=== PATIENT | female | born 1965 | race Caucasian/White ===

== ENCOUNTER 2017-04-03 13:00 | Outpatient (RCR) | payer MEDICAID, SELFPAY ==
--- NOTE | 2017-04-03 09:16 | HP.PTEVAL_ITS ---
Patient's Visit Information MAGALY AVILA is a 51 year old F referred to Physical Therapy by Fran Ding MD with a diagnosis of LBP. Date of Evaluation: 04/03/17 Physical Therapist: Maxime Scanlon PT, - Visit Plan Frequency: 2-3x /Week Duration: 4 Weeks Plan: Postural edu, SKTC/DKTC, core stab ex's, nustep, and HEP - Subjective Subjective: Pt reports she has had LBP since 2008. Pt reports her pain is constant in nature. Pt reports she had been on medication when she lived in [place], but since she moved up here, she is not allowed to have any pain meds until she follows through with other options first, such as PT. Pt reports sitting, standing, bending over to pick things up, and walking all increase her pain. Pt reports only lying down on her L side helps to alleviate the pain. Pt reports no sleep diff secondary to pain unless she lyes on her back and it locks up on her. Pt reports intermittent R LE radiculopathy that extends all the way down to her toes. 8/10 apin at rest, 9/10 at worst (walking) - Pain LBP Pain Intensity (Out of 10): 8 Pain Intensity Range: 9 - Objective Neuro: B LE sensation is WNL to light touch. B patellar reflex= 1/3. MMT: B hips are grossly 4/5 with flex, abd, and add. All other mmt= 5/5 throughout. L/ S ROM: Pt is moderately limited in all planes. repeated movements: both APTRICK and RFIS increase LBP after 5 reps. RFIL - Goals Goal 1:: Decrease LBP x 50% to aid with IADL's Goal Time Frame: 4-6 Weeks Goal 2:: Increase L/S ROM x 1 grade to aid with ADL's Goal Time Frame: 4-6 Weeks Goal 3:: Increase B LE strength x 1 grade to aid with increasing jocelyn for ambulation Goal Time Frame: 4-6 Weeks Goal 4:: I with HEP Goal Time Frame: 4-6 Weeks - Rehabilitation Potential Physical Therapy Diagnosis: Pt has LBP, limited L/S ROM, and diff with ambulation secondary to deg changes to the L/S Rehabilitation Potential: Good - Anticipated Interventions Patient/Client Instruction: Educate patient on: Condition, Plan of Care For the Purpose of:: To improve self management Therapeutic Exercise to Include: Strength training, Endurance training, Body mechanics, Postural training, Flexibilty training, Dynamic Lumbar Stabilization For the Purpose of:: To decrease pain, To increase ROM, To improve muscle performance and motor function Cryotherapy (ice pack, ice massage): Yes Thermo therapy (hot pack): Yes Ultrasound (thermal/non thermal): Yes For the Purpose of:: To decrease pain Thank you for the opportunity to evaluate your patient. For Medicare and Medicare HMO plans, please review the plan of care and approve it. It will need to be FAXED BACK to us at [phone] for Medicare purposes. Please let me know if there are questions or concerns regarding this plan of care. Physician Signature: Date:
--- NOTE | 2017-07-30 13:28 | HP.PT.NRP ---
HP - Discharge Summary (1) - Patient Information MAGALY AVILA was seen in my office for initial evaluation on 04/03/17. The following Plan of Care was established for this patient: Initial Frequency: 2-3x /Week Initial Duration: 4 Weeks - Anticipated Interventions Patient/Client Instruction: Educate patient on: Condition, Plan of Care For the Purpose of:: To improve self management Therapeutic Exercise to Include: Strength training, Endurance training, Body mechanics, Postural training, Flexibilty training, Dynamic Lumbar Stabilization For the Purpose of:: To decrease pain, To increase ROM, To improve muscle performance and motor function Cryotherapy (ice pack, ice massage): Yes Thermo therapy (hot pack): Yes Ultrasound (thermal/non thermal): Yes For the Purpose of:: To decrease pain This patient was last seen in our office . Pertinent comments regarding their Physical therapy will appear below: Pt was last scheduled for PT on the date of 05/06/17, but did not attend that visit and has not returned through todays date. Pt is discontinued at this time At this point I will be discontinuing this patient from physical therapy. I would be happy to see this patient again in the future if found appropriate by the physician. Thank you! Maxime Scanlon, PT,
== END 2017-04-30 19:00 | disposition home or self-care (01) ==
LOC: PT 04-15 13:30
PROVIDERS: Family Provider Internal Medicine; PCP Internal Medicine; Visit Provider Anesthesiology
DX: M54.40 Lumbago with sciatica, unspecified side (principal); M54.16 Radiculopathy, lumbar region
CPT/HCPCS: 97110; 97113; 97161

== ENCOUNTER → 2017-12-09 10:35 | Outpatient (CLI) | payer MEDICAID, SELFPAY ==
--- NOTE | 2017-12-09 10:35 | DT_ITS ---
This patient was seen during an EMR downtime December 07, 2017 - December 14, 2017. This patient may have a combination of paper and electronic documentation or all paper documentation. All documentation is viewable within the e-chart portion of [facility] [employer] for each patient visit.
[2017-12-12 11:01] LABS: Mucous, Urine 0 SEEN /hpf (<or=2+); Red Blood Cells-Urine 0 SEEN /hpf (0-5); White Blood Cells 0 SEEN /hpf (0-5)
[2017-12-12 11:08] LABS: Bacteria RARE /hpf (None Seen); Color, Urine Yellow (Yellow); Glucose, Dipstick NEGATIVE (Normal); Ketone-Dipstick Negative (Negative); Leukocyte Esterase-Dipstick Negative /ul (Negative); Nitrite-Dipstick Negative (Negative); Occult Blood-Urine Negative /ul (Negative); Protein-Dipstick Negative (Negative); Specific Gravity, Urine 1.005 (1.002-1.030); Squamous Epithelial Cells - UA 0-5 SEEN /hpf (5-10); Urine Bilirubin Dipstick Negative (Negative); Urine Clarity Clear (Clear); Urine Urobilinogen Normal (Normal); Urine pH 6.5 (5.0 - 8.0)
== END ==
PROVIDERS: Family Provider Internal Medicine; PCP Internal Medicine; Visit Provider Internal Medicine
DX: R35.0 Frequency of micturition (principal)
CPT/HCPCS: 81001; 87086; 87088

== ENCOUNTER 2017-12-28 18:35 | Emergency (ER) | payer MEDICAID, SELFPAY ==
[2017-12-28 18:35] VITALS: BP 134/109; PULSE 94; RESP 16; O2SAT 96
[2017-12-28 18:36] VITALS: PULSE 103; RESP 19; TEMP 36.6; O2SAT 97; BMI 47.7
--- NOTE | 2017-12-28 19:14 | CT_ITS ---
STUDY: CT BRAIN WITHOUT CONTRAST REASON FOR EXAM: Female, 52 years old. Near syncope. RADIATION DOSAGE (If Supplied By Facility): CTDIvol = ( 44.99 ) mGy, DLP = ( 812.98 ) mGycm TECHNIQUE: Transaxial CT imaging of the brain was performed without administration of intravenous contrast material. Individualized dose optimization techniques were used for this CT. COMPARISON: None. FINDINGS: Normal soft tissue structures. Normal calvarium. Normal size ventricles and extra-axial spaces for the patient's age. Normal white matter tracts of the cerebral hemispheres. Normal basal ganglia and thalami. Normal brainstem. Normal cerebellum. There is no intracranial hemorrhage. There are no findings of an acute ischemic infarction. Normal visualized paranasal sinuses. CT/Brain/Head without Contrast IMPRESSION: Normal unenhanced CT scan of the brain. Electronically Signed: Dawson Mendoza DO at 20:35 EDT Tel , Service support ,
[2017-12-28 19:28] LABS: Absolute Lymphocyte Count 2.25 X10^3/ul (0.83-4.51); Absolute Neutrophil Count 7.7 X10^3/uL (2.0-7.7); Basophil# 0.02 X10^3/uL; Basophil% 0.2 % (0-1); Eosinophil# 0.06 X10^3/uL; Eosinophils% 0.6 % (0-5); Hematocrit 43.4 % (37-47); Hemoglobin 14.3 g/dl (12.0-15.0); Lymphocyte # 2.25 X10^3/ul (4.0); Lymphocyte % 21.3 % (19-41); Mean Corp Hgb Conc 32.9 g/gl (32-36); Mean Corpuscular Hgb 28.1 pg (27.0-32.0); Mean Corpuscular Volume 85.4 fL (81-99); Mean Platelet Vol. 9.5 fl (6.2-12.0); Monocyte# 0.51 X10^3/uL; Monocyte% 4.8 % (0-10); Platelet Count 364 K/mm3 (150-450); RBC Distribution Width CV 13.6 % (11.6-14.6); RBC Distribution Width SD 42.2 fl (35.1-43.9); Red Blood Count 5.08 M/mm3 (4.2-5.4); White Blood Count 10.6 K/mm3 (4.4-11.0)
[2017-12-28 19:30] LABS: POSITIVE COUNT NO; POSITIVE DIFFERENTIAL NO; POSITIVE MORPHOLOGY NO
[2017-12-28 19:39] LABS: ALB/GLOB Ratio 0.6 RATIO (0.9-2.4); AST(SGOT) 21 U/L (15-37); Alanine Aminotransfer ALT/SGPT 26 U/L (13-56); Albumin, Serum 3.3 g/dL (3.2-5.0); Alkaline Phosphatase 113 U/L (45-117); Anion Gap 7 (5-15); BUN 13 mg/dL (7-18); Calcium,Total 9.2 mg/dL (8.5-10.1); Chloride 101 mmol/L (98-107); Creatinine, Serum 0.81 mg/dL (0.55-1.02); EST Glomerular Filtration Rate 79 mL/min (>60); Est Glom Filt Rate - Afr Amer 96 mL/min (>60); Estimated Creatinine Clearance 71.75 ml/min; Globulin 5.1 g/dL (2.2-4.2); Glucose 107 mg/dL (74-106); Potassium 3.6 mmol/L (3.5-5.1); Protein, Total 8.4 g/dL (6.4-8.2); Sodium Level 136 mmol/L (136-145)
[2017-12-28] MEDS: 0.9% Normal Saline 1,000 ML 1000 ML IV (20:13)
[2017-12-28] MEDS: diazePAM 10 MG/2 ML Syringe 5 MG IV (20:25)
[2017-12-28 20:40] VITALS: BP 113/93; PULSE 97; RESP 19; O2SAT 97
--- NOTE | 2017-12-28 22:53 | ED.DCSUM_ITS ---
- ER Visit Summary Date of Service: 12/28/17 Chief Complaint: Vertigo History of Present Illness: The patient is a 52 F with vertigo that started suddenly a few hours ago. No headache. No vision changes. She has some nausea with this. No history of this in the past. She has no weakness or any other neurological symptoms. Physical Examination: She does appear in some distress Moist mucous membranes, no obvious facial deformity No C-spine tenderness supple neck. Regular rate and rhythm without any obvious murmurs Clear lungs bilaterally speaking in full sentences without any obvious respiratory distress Abdomen soft and nontender no guarding or rebound Moves all extremities without any difficulty or pain. Skin does not show any obvious rashes or lesions, no trauma. Alert oriented ?3 with no gross focal deficit. She does lose sacadian traction of the eye especially on the right with traction. Emergency Department Course and Treatment: Patient has an unremarkable workup. Normal CT and blood work. She improved significantly. I will discharge with ENT follow-up Disposition: Discharged stable condition Impression: Vertigo This note was generated with [employer] dictation software. It may contain incorrect words, spelling, and punctuation that were not noted in review of the chart prior to signing ED Disposition - Plan for ED Patient: Disposition: Home or Assisted Living Chief Complaint: Syncope Instructions: ED Vertigo Unspecified Prescriptions: Meclizine HCl 25 mg PO Q12H PRN PRN 10 Days #20 tab PRN Reason: Vertigo Referrals: Sarah Cleaning MD [Primary Care Provider] - 3-5 Days
[2017-12-28 23:43] VITALS: BP 134/78; PULSE 100; RESP 17; O2SAT 98
== END 2017-12-28 23:44 | disposition home or self-care (01) ==
PROVIDERS: Emergency Provider Emergency Medicine; Family Provider Internal Medicine; PCP Internal Medicine
DX: R42 Dizziness and giddiness (principal); I10 Essential (primary) hypertension; J44.9 Chronic obstructive pulmonary disease, unspecified; Z72.0 Tobacco use; Z79.899 Other long term (current) drug therapy
CPT/HCPCS: 70450; 80053; 85025; 96374; 99284; J7030; A4216

== ENCOUNTER → 2018-03-04 14:22 | Outpatient (CLI) | payer MEDICAID, SELFPAY ==
[2018-03-04 17:29] LABS: Absolute Lymphocyte Count 3.04 X10^3/ul (0.83-4.51); Basophil# 0.04 X10^3/uL; Basophil% 0.5 % (0-1); Eosinophil# 0.26 X10^3/uL; Eosinophils% 3.3 % (0-5); Hemoglobin 14.1 g/dl (12.0-15.0); Lymphocyte # 3.04 X10^3/ul (4.0); Lymphocyte % 38.5 % (19-41); Mean Corp Hgb Conc 31.3 g/gl (32-36); Mean Corpuscular Hgb 27.8 pg (27.0-32.0); Mean Corpuscular Volume 88.8 fL (81-99); Mean Platelet Vol. 9.6 fl (6.2-12.0); Monocyte# 0.54 X10^3/uL; Monocyte% 6.8 % (0-10); Neutrophil % 50.6 % (47-70); Platelet Count 369 K/mm3 (150-450); RBC Distribution Width CV 14.8 % (11.6-14.6); RBC Distribution Width SD 47.6 fl (35.1-43.9); Red Blood Count 5.07 M/mm3 (4.2-5.4); White Blood Count 7.9 K/mm3 (4.4-11.0)
[2018-03-04 17:30] LABS: POSITIVE COUNT NO; POSITIVE DIFFERENTIAL NO; POSITIVE MORPHOLOGY NO
[2018-03-04 18:09] LABS: ALB/GLOB Ratio 0.7 RATIO (0.9-2.4); AST(SGOT) 22 U/L (15-37); Alanine Aminotransfer ALT/SGPT 25 U/L (13-56); Albumin, Serum 3.3 g/dL (3.2-5.0); Alkaline Phosphatase 101 U/L (45-117); Anion Gap 9 (5-15); BUN 9 mg/dL (7-18); BUN/Creat Ratio 11.8 RATIO (10-20); Calcium,Total 8.9 mg/dL (8.5-10.1); Chloride 103 mmol/L (98-107); Creatinine, Serum 0.76 mg/dL (0.55-1.02); EST Glomerular Filtration Rate 85 mL/min (>60); Est Glom Filt Rate - Afr Amer 103 mL/min (>60); Glucose 92 mg/dL (74-106); Potassium 4.4 mmol/L (3.5-5.1); Protein, Total 8.3 g/dL (6.4-8.2); Sodium Level 140 mmol/L (136-145); Thyroid Stim Hormone (TSH) 1.46 uIU/mL (0.358-3.74)
[2018-03-08 12:44] LABS: Hep C Antibodies <0.1 s/co ratio (0.0-0.9)
== END ==
LOC: POLAB3 14:23 → RAD 14:28
PROVIDERS: Family Provider Family Medicine Geriatric Medicine; PCP Family Medicine Geriatric Medicine; Visit Provider Family Medicine Geriatric Medicine
DX: M51.86 Other intervertebral disc disorders, lumbar region (principal); M16.0 Bilateral primary osteoarthritis of hip; E03.9 Hypothyroidism, unspecified; Z13.89 Encounter for screening for other disorder
CPT/HCPCS: 36415; 72100; 73521; 80053; 84443; 85025; 86803

== ENCOUNTER → 2018-04-05 14:11 | Outpatient (CLI) | payer MEDICAID, SELFPAY ==
--- NOTE | 2018-04-05 14:14 | US_ITS ---
STUDY: ULTRASOUND OF THE FEMALE PELVIS - COMPLETE REASON FOR EXAM: Female, 52 years old. Postmenopausal bleeding. TECHNIQUE: Transabdominal and Transvaginal TECHNICAL QUALITY: Adequate. COMPARISON: None. FINDINGS: The uterus is anteverted and is in a midline position. The uterus measures 6.4 x 3.5 x 4.5 cm. There is a Nabothian cyst of the cervix. The endometrium measures 7.3 mm in thickness, and is hyperechoic. There is no demonstrated endometrial mass. There is no demonstrated myometrial mass. I.U.D. - The patient does not have an I.U.D. The right ovary is visualized. The right ovary measures 1.6 x 1.3 x 2.1 cm. There is no right ovarian cyst or ovarian mass. There is no visualized right adnexal mass or complex lesion. There is normal arterial and normal venous vascularity. The left ovary is visualized. The left ovary measures 2.2 x 1.7 x 2.3 cm. There is no left ovarian cyst or ovarian mass. There is no visualized left adnexal mass or complex lesion. There is normal arterial and normal venous vascularity. There is no fluid in the cul-de-sac. The pre void volume of the bladder was 460.4 ml. Polycystic ovary disease: No. US/Pelvic (Non ) IMPRESSION: Thickened endometrial stripe. Electronically Signed: Jyoti Milian MD at 16:47 EDT Tel , Service support ,
--- NOTE | 2018-04-05 14:37 | US_ITS ---
STUDY: ULTRASOUND OF THE FEMALE PELVIS - COMPLETE REASON FOR EXAM: Female, 52 years old. Postmenopausal bleeding. TECHNIQUE: Transabdominal and Transvaginal TECHNICAL QUALITY: Adequate. COMPARISON: None. FINDINGS: The uterus is anteverted and is in a midline position. The uterus measures 6.4 x 3.5 x 4.5 cm. There is a Nabothian cyst of the cervix. The endometrium measures 7.3 mm in thickness, and is hyperechoic. There is no demonstrated endometrial mass. There is no demonstrated myometrial mass. I.U.D. - The patient does not have an I.U.D. The right ovary is visualized. The right ovary measures 1.6 x 1.3 x 2.1 cm. There is no right ovarian cyst or ovarian mass. There is no visualized right adnexal mass or complex lesion. There is normal arterial and normal venous vascularity. The left ovary is visualized. The left ovary measures 2.2 x 1.7 x 2.3 cm. There is no left ovarian cyst or ovarian mass. There is no visualized left adnexal mass or complex lesion. There is normal arterial and normal venous vascularity. There is no fluid in the cul-de-sac. The pre void volume of the bladder was 460.4 ml. Polycystic ovary disease: No. US/Transvaginal Non- IMPRESSION: Thickened endometrial stripe. Electronically Signed: Jyoti Milian MD at 16:47 EDT Tel , Service support ,
== END ==
PROVIDERS: Family Provider Family Medicine Geriatric Medicine; PCP Family Medicine Geriatric Medicine; Referring Provider Family Medicine Geriatric Medicine; Visit Provider Family Medicine Geriatric Medicine
DX: N95.0 Postmenopausal bleeding (principal)
CPT/HCPCS: 76830; 76856

== ENCOUNTER → 2018-04-14 14:55 | Outpatient (CLI) | payer MEDICAID, SELFPAY ==
--- NOTE | 2018-04-14 | EMB_PTH ---
PATIENT: MARY AVILA LOC: [facility] U#:[id number] AGE/SX: 59/F ROOM: RE04/14/[address]: SULY Huston : 1965 BED: DIS: SPEC #: [id number] RECD: 04/14/18 15:06 STATUS: [facility] MICHELLE #: [id number] LIZ: 04/14/18 00:[address]: Gloria Mo NP DEPT: SURGICAL PATHOLOGY RECD BY: Brooks Gill ENTERED: 04/14/18 15:11 SP TYPE: ENDOM BX/C DARLIN DR: Dr. Michael Galvan MD Tissues: Endometrium, NOS Procedures: Surgery Specimen Level IV HEADER OPERATION: Endometrial biopsy PRE-OP DIAGNOSIS: Postmenopausal bleeding TISSUE SUBMITTED: Endometrium MICROSCOPIC DIAGNOSIS Endometrium, biopsy: Polypoid fragments of lower uterine/endocervical tissue with simple cystic hyperplasia without atypia. Proliferative endometrium. Mild chronic endometritis. AM:[place] 04/15/18 COMMENT Case has been reviewed in consultation with Dr. Liu who concurs with the above diagnosis. IDC:RUBIN MICROSCOPIC DESCRIPTION Slides are reviewed. GROSS DESCRIPTION Received is one container labeled with the patient's name and not further designated. The specimen consists of multiple fragments of hemorrhagic mucoid tissue that in aggregate measure 2 x 0.5 x 0.1 cm. The specimen is totally submitted in one cassette. / RUBIN:[place] 04/14/18 TC:5 CPT: 92976
[2018-04-14 17:25] LABS: Chlamydia Trachomatis by PCR Negative (Negative); Neisserai gonorrhoeae by PCR Negative (Negative); Probe Check PASS; Sample Adequacy Control PASS; Specimen Processing Control PASS
[2018-04-22 15:13] LABS: HPV APTIMA, High Risk Negative (Negative)
== END ==
PROVIDERS: Family Provider Family Medicine Geriatric Medicine; PCP Family Medicine Geriatric Medicine; Referring Provider Nurse Practitioner Women's Health; Visit Provider Nurse Practitioner Women's Health
DX: Z12.4 Encounter for screening for malignant neoplasm of cervix (principal); N89.8 Other specified noninflammatory disorders of vagina; N95.0 Postmenopausal bleeding
CPT/HCPCS: 87491; 87591; 88175; 88305; G0145

== ENCOUNTER → 2018-06-10 10:51 | Outpatient (CLI) | payer MEDICAID, SELFPAY ==
[2018-04-14 10:14] VITALS: BMI 48.0
[2018-06-10 12:36] LABS: Absolute Lymphocyte Count 3.11 X10^3/ul (0.83-4.51); Absolute Neutrophil Count 4.3 X10^3/uL (2.0-7.7); Basophil# 0.06 X10^3/uL; Basophil% 0.7 % (0-1); Eosinophils% 2.4 % (0-5); Hematocrit 44.2 % (37-47); Lymphocyte # 3.11 X10^3/ul (4.0); Lymphocyte % 37.6 % (19-41); Mean Corp Hgb Conc 31.7 g/gl (32-36); Mean Corpuscular Hgb 27.7 pg (27.0-32.0); Mean Corpuscular Volume 87.4 fL (81-99); Mean Platelet Vol. 9.9 fl (6.2-12.0); Monocyte% 7.3 % (0-10); Neutrophil # 4.29 X10^3/uL (2.7-7.7); Neutrophil % 51.9 % (47-70); Platelet Count 346 K/mm3 (150-450); RBC Distribution Width CV 14.3 % (11.6-14.6); RBC Distribution Width SD 45.3 fl (35.1-43.9); Red Blood Count 5.06 M/mm3 (4.2-5.4); White Blood Count 8.3 K/mm3 (4.4-11.0)
[2018-06-10 12:38] LABS: POSITIVE DIFFERENTIAL NO
[2018-06-10 12:39] LABS: POSITIVE COUNT NO; POSITIVE MORPHOLOGY NO
--- NOTE | 2018-06-10 12:54 | RAD_ITS ---
STUDY: X-RAY - LEFT KNEE REASON FOR EXAM: Female, 52 years old. Pain. TECHNIQUE: 4 view(s) of the knee. COMPARISON: None. FINDINGS: Normal visualized distal femur. Normal visualized proximal tibia and fibula. Normal proximal tibiofibular articulation. There is no demonstrated fracture. Normal medial femorotibial compartment. Normal lateral femorotibial compartment. Normal patellofemoral articulation. There is no demonstrated joint effusion. The soft tissue structures are unremarkable. RAD/Knee 4 or More Views IMPRESSION: Normal x-ray examination of the knee. Electronically Signed: Angelo Paige MD at 15:32 EST , Service support ,
[2018-06-10 12:57] LABS: ALB/GLOB Ratio 0.8 RATIO (0.9-2.4); AST(SGOT) 17 U/L (15-37); Alanine Aminotransfer ALT/SGPT 25 U/L (13-56); Albumin, Serum 3.5 g/dL (3.2-5.0); Alkaline Phosphatase 105 U/L (45-117); Anion Gap 6 (5-15); BUN 12 mg/dL (7-18); BUN/Creat Ratio 15.5 RATIO (10-20); Calcium,Total 8.9 mg/dL (8.5-10.1); Chloride 104 mmol/L (98-107); Creatinine, Serum 0.77 mg/dL (0.55-1.02); EST Glomerular Filtration Rate 84 mL/min (>60); Est Glom Filt Rate - Afr Amer 101 mL/min (>60); Globulin 4.4 g/dL (2.2-4.2); Glucose 95 mg/dL (74-106); Potassium 4.8 mmol/L (3.5-5.1); Protein, Total 7.9 g/dL (6.4-8.2); Sodium Level 141 mmol/L (136-145); Thyroid Stim Hormone (TSH) 1.46 uIU/mL (0.358-3.74)
--- NOTE | 2018-06-10 13:00 | RAD_ITS ---
STUDY: X-RAY - LEFT HIP REASON FOR EXAM: Female, 52 years old. Left hip pain. TECHNIQUE: 2 views of the hip. COMPARISON: None. FINDINGS: Normal femoral head, neck, intertrochanteric region and visualized proximal femur. Normal acetabulum. Normal hip joint. Normal visualized superior and inferior pubic rami and ischial tuberosities. There is no demonstrated hip fracture. RAD/HIP, UNI W/ Pelvis 2-3 Views IMPRESSION: Normal x-ray examination of the hip. Electronically Signed: Angelo Paige MD at 15:31 EST , Service support ,
== END ==
PROVIDERS: Family Provider Family Medicine Geriatric Medicine; PCP Family Medicine Geriatric Medicine; Referring Provider Family Medicine Geriatric Medicine; Visit Provider Family Medicine Geriatric Medicine
DX: I10 Essential (primary) hypertension (principal); M25.552 Pain in left hip; M25.562 Pain in left knee
CPT/HCPCS: 36415; 73502; 73564; 80053; 84443; 85025

== ENCOUNTER → 2018-08-13 10:58 | Outpatient (CLI) | payer MEDICAID, SELFPAY | PROVIDERS: Family Provider Family Medicine Geriatric Medicine; PCP Family Medicine Geriatric Medicine; Visit Provider Family Medicine Geriatric Medicine | DX: N39.0 Urinary tract infection, site not specified (principal) | CPT/HCPCS: 87086; 87088 ==

== ENCOUNTER → 2018-09-01 12:13 | Outpatient (CLI) | payer MEDICAID, SELFPAY ==
--- NOTE | 2018-09-01 13:44 | NEURO ---
NCS and/or EMG Patient Report Ordering Doctor: Michael Galvan Chi DATE OF SERVICE: 09/01/18December Mike is a 52-year-old female presents for electrodiagnostic testing of the lower limbs. She reports knee pain and weakness in the legs. Electrodiagnostic findings: Peroneal motor nerve demonstrates normal distal latency, amplitude and conduction velocity bilaterally. Normal tibial motor response bilaterally. Normal tibial and peroneal F waves. H reflex normal bilaterally. Sensory responses are within normal limits, except for right medial plantar response which could not be obtained. This was likely due to technical difficulties. The patient refused needle EMG testing. Electrodiagnostic impression: This is a normal, though limited study in the lower limbs. 1. No electrodiagnostic evidence is identified for peripheral neuropathy. An accurate assessment regarding lumbosacral radiculopathy or myopathy cannot be obtained as needle EMG testing was not completed. If there are any further questions, please do not hesitate to contact me.
== END ==
PROVIDERS: Family Provider Family Medicine Geriatric Medicine; PCP Family Medicine Geriatric Medicine; Referring Provider Family Medicine Geriatric Medicine; Visit Provider Family Medicine Geriatric Medicine
DX: R20.0 Anesthesia of skin (principal)
CPT/HCPCS: 95886; 95911

== ENCOUNTER → 2018-09-08 12:57 | Outpatient (CLI) | payer MEDICAID, SELFPAY ==
[2018-09-08 15:05] LABS: Absolute Lymphocyte Count 2.33 X10^3/ul (0.83-4.51); Absolute Neutrophil Count 5.8 X10^3/uL (2.0-7.7); Basophil# 0.03 X10^3/uL; Basophil% 0.3 % (0-1); Eosinophil# 0.21 X10^3/uL; Eosinophils% 2.3 % (0-5); Hematocrit 44.9 % (37-47); Hemoglobin 13.7 g/dl (12.0-15.0); Lymphocyte # 2.33 X10^3/ul (4.0); Mean Corp Hgb Conc 30.5 g/gl (32-36); Mean Corpuscular Hgb 26.7 pg (27.0-32.0); Mean Corpuscular Volume 87.4 fL (81-99); Mean Platelet Vol. 9.6 fl (6.2-12.0); Monocyte% 6.7 % (0-10); Neutrophil # 5.77 X10^3/uL (2.7-7.7); Neutrophil % 64.6 % (47-70); Platelet Count 372 K/mm3 (150-450); RBC Distribution Width CV 15.2 % (11.6-14.6); Red Blood Count 5.14 M/mm3 (4.2-5.4)
[2018-09-08 15:12] LABS: POSITIVE COUNT NO; POSITIVE DIFFERENTIAL NO; POSITIVE MORPHOLOGY NO
[2018-09-08 15:23] LABS: ALB/GLOB Ratio 0.8 RATIO (0.9-2.4); AST(SGOT) 14 U/L (15-37); Alanine Aminotransfer ALT/SGPT 22 U/L (13-56); Albumin, Serum 3.2 g/dL (3.2-5.0); Alkaline Phosphatase 118 U/L (45-117); Anion Gap 7 (5-15); BUN 12 mg/dL (7-18); Calcium,Total 8.8 mg/dL (8.5-10.1); Chloride 105 mmol/L (98-107); EST Glomerular Filtration Rate 81 mL/min (>60); Est Glom Filt Rate - Afr Amer 98 mL/min (>60); Globulin 4.1 g/dL (2.2-4.2); Glucose 111 mg/dL (74-106); Potassium 4.4 mmol/L (3.5-5.1); Protein, Total 7.3 g/dL (6.4-8.2); Sodium Level 142 mmol/L (136-145); Thyroid Stim Hormone (TSH) 0.58 uIU/mL (0.358-3.74)
== END ==
PROVIDERS: Family Provider Family Medicine Geriatric Medicine; PCP Family Medicine Geriatric Medicine; Visit Provider Family Medicine Geriatric Medicine
DX: I10 Essential (primary) hypertension (principal)
CPT/HCPCS: 36415; 80053; 84443; 85025

== ENCOUNTER 2018-09-30 09:00 | Outpatient (RCR) | payer MEDICAID, SELFPAY ==
[2018-09-22 08:24] VITALS: BMI 47.0
--- NOTE | 2018-10-05 16:02 | HP.FCE ---
HP OT Functional Capacity Eval - Task Lift Floor (Occasional 1-33% of Day): 15 Floor (Frequent 34-66% of Day): 8 Floor (Constant 67-100% of Day): Negligible Floor PDL: Sedentary-Light Knee (Occasional 1-33% of Day): 15 Knee (Frequent 34-66% of Day): 8 Knee (Constant 67-100% of Day): Negligible Knee PDL: Sedentary-Light Waist (Occasional 1-33% of Day): 15 Waist (Frequent 34-66% of Day): 8 Waist (Constant 67-100% of Day): Negligible Waist PDL: Sedentary-Light Shoulder (Occasional 1-33% of Day): 5 Shoulder (Frequent 34-66% of Day): Negligible Shoulder (Constant 67-100% of Day): Negligible Shoulder PDL: Sedentary Overhead (Occasional 1-33% of Day): 5 Overhead (Frequent 34-66% of Day): Negligible Overhead (Constant 67-100% of Day): Negligible Overhead PDL: Sedentary - Work Activity/Posture Bending: Occasional Ability (1-33% of day) Squatting: Occasional Ability (1-33% of day) Kneeling: Occasional Ability (1-33% of day) Reaching out: Occasional Ability (1-33% of day) Reaching up: Frequent Ability (34-66% of day) Sitting: Frequent Ability (34-66% of day) Walking: Occasional Ability (1-33% of day) Standing: Occasional Ability (1-33% of day) - Reference Duration Sedentary Sedentary Light Light Light Medium Medium Medium Heavy Very Heavy Heavy Occasional (0-33% of day) Frequent (34-66% of day) Constant (67-100% of day) 10 # Negligible Negligible 15 # 8 # Negligible 20 # 10# Negli. 35 # 18 # 7 # 50 # 25 # 10 # 75 # 100 # >100 # 38 # 50 # >50 # 15 # 20 # >20 # - Patient Information Height: 5 ft 4 in Weight:: 112.037 kg Hand Dominance: R handed - Medical History Medical History Including Restrictions: PMHx; HLD, hypothyroidism, COPD, smoker 3-4 cigs per day, debility, chr low back pain, R knee pain - Diagnoses Diagnoses: HLD, hypothyroidism, COPD, smoker 3-4 cigs per day, debility, chr low back pain - Symptoms Symptoms: Pt states the following symptoms: aching pain lower back worse with movement, R arm burning pain hand to distal humerous, L knee pain comes and goes shooting pain. - Pain Pain: Pt states lower back pain 7-8/10, L knee pain 5/10, R arm pain 10/10. 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 - ADLS ADLS: Pt lives with gentleman that she cares for, she makes sure he gets food and medication, her kids assist him with BADLs if needed. Mobile home 2 steps to enter no handrail, holds onto door frame. Tub/shower no AE. Std toilet seats. Laundry in house, kids carry baskets of laundry to washer/dryer. Pt able to transfer clothes from washer to dryer independently states hurts to complete, but she does it. Kids there to assist her frequently as needed. Independent with BADLs/IADLs. Drives. Small dog to care for, goes out on own. She only has to open the door for dog. Does go grocery shopping has one of her children with her, will walk around as long as she has cart to hold onto. Kids carry groceries into house and put groceries away for her. - Physical Examination ROM: BUE WFL, BLE WFL Strength: R UE 3+/5, L UE 4-/5, R LE 3+/5, L LE 3+/5 Right Staff Software Engineer Strength Average: 30.00 Left Staff Software Engineer Strength Average: 46.66 Right Lateral Pinch Average: 6.66 Left Lateral Pinch Average: 8.00 Right Tripod Pinch Average: 6.00 Left Tripod Pinch Average: 7.33 Sensation: Pt states numbness R hand, numbness R leg after sitting for period of time. Monofilament 2.83 Fine Motor: No concerns with fine motor per pt. Pt states able to manipulate all fasteners and complete writing skills as needed, open containers. 9 hole peg test Right 21.7 seconds Left 26.3 seconds (R hand dominent) Balance: No falls in past 3 months per pt. - Non Material Handling Activities Bendinx, 6 slow pace only to knee level, stated unable to complete bending down to floor 10/10 pain with completion of bending tasks. Squattinx, 6x modified squat partially going down with knees and with L hand on table chair 10/10 pain lower back. Unable to complete full squat. Kneelinx modified kneeling, slowly going down and up, only able to go up/down from kneeling positioning slightly bending of knees, unable to take knee to floor and back up, pt refused to complete any more kneels stating can't do it, it hurts. Reaching out/up: Reaching up 1x, 10x, refused to trial 10x fast, reaching out 6x each way then stopped secondary to pain in R shoulder down arm 9/10. Walkin minute walk test: Pt able to complete 1 minute 8 seconds of the 15 minute walk test then had to sit down because of lower back pain 111.5ft. Pt able to ambulate 221.7 ft to/from therapists desk to front office attendant for evaluation without having to sit or take rest break. Standing: Pt able to stand for short amounts of time through-out evaluation 1-3 minutes at a time. Sitting: Pt sitting for 10 to 15 minutes at a time before needing to stand or move around for discomfort. Climbing Stairs: Pt able to climb flight of 10 steps up/down using bilateral handrails. - Dynamic Occasional Lifting Capacity Floor Lift: 15lb max Knee Lift: 15lb max Waist Lift: 15lb max Shoulder Lift: 5lb max Overhead Lift: 5lb max Carryinlb max Comments: LOWER BACK PAIN 9/10 after lifting tasks
== END 2018-09-30 19:00 | disposition home or self-care (01) ==
LOC: OT 09:00
PROVIDERS: Family Provider Family Medicine Geriatric Medicine; PCP Family Medicine Geriatric Medicine; Referring Provider Family Medicine Geriatric Medicine; Visit Provider Family Medicine Geriatric Medicine
DX: R53.83 Other fatigue (principal)
CPT/HCPCS: 97167

== ENCOUNTER → 2018-10-20 14:08 | Outpatient (CLI) | payer MEDICAID, SELFPAY ==
[2018-09-22 08:24] VITALS: BMI 47.0
== END ==
PROVIDERS: Family Provider Family Medicine Geriatric Medicine; PCP Family Medicine Geriatric Medicine; Referring Provider Nurse Practitioner Acute Care; Visit Provider Nurse Practitioner Acute Care
DX: G47.33 Obstructive sleep apnea (adult) (pediatric) (principal)
CPT/HCPCS: 95811

== ENCOUNTER → 2018-11-12 13:13 | Outpatient (CLI) | payer MEDICAID, SELFPAY ==
[2018-09-22 08:24] VITALS: BMI 47.0
== END ==
PROVIDERS: Family Provider Family Medicine Geriatric Medicine; PCP Family Medicine Geriatric Medicine; Referring Provider Nurse Practitioner Acute Care; Visit Provider Nurse Practitioner Acute Care
DX: G47.33 Obstructive sleep apnea (adult) (pediatric) (principal)

== ENCOUNTER → 2019-01-07 16:14 | Outpatient (CLI) | payer MEDICAID, SELFPAY ==
[2019-01-03 09:42] VITALS: BMI 47.0
--- NOTE | 2019-01-07 16:18 | MRI_ITS ---
HISTORY: Left medial knee pain 2 months COMPARISON: Left knee radiographs 06/10/2018 TECHNIQUE: Multisequence multiplanar MR imaging of the left knee without intra-articular contrast was performed per department protocol. # of images including paperwork: 229 FINDINGS: BONE MARROW AND OSSEOUS STRUCTURES: No acute fracture or dislocation. The bone marrow signal intensity is normal. There is no evidence of bone marrow contusion. MENISCI AND JOINT SPACES: At the medial joint compartment, complex posterior horn tear in the oblique/longitudinal component extending to the mid body. No chondral defects are seen. No subchondral bony signal alteration. At the lateral joint compartment, small posterior horn oblique tear involving the periphery. No chondral defects. No subchondral bony signal alteration. Patellofemoral joint compartment demonstrates no chondral defects or subchondral bony signal alteration. LIGAMENTS AND TENDONS: The anterior cruciate ligament, posterior cruciate ligament, medial collateral ligament, and lateral collateral ligaments are normal. The quadriceps tendon, patellar tendon, popliteus tendon and biceps tendon are within normal limits. OTHERS: Moderate size joint effusion. No popliteal cyst is seen. Hoffa's fat pad is unremarkable. Neurovascular bundles are outlined by fat. MRI/Lower Ext Joint Only (Routine) IMPRESSION: 1. Medial meniscus complex tear involving the posterior horn and mid body. 2. Lateral meniscus small oblique tear of the posterior horn at the peripheral margin. 3. Moderate-sized joint effusion. at 2106 Reported and signed by: Aris Gaxiola MD Electronically Signed: Aris Gaxiola MD at 21:05 EDT Tel , Service support ,
== END ==
PROVIDERS: Family Provider Nurse Practitioner Family; PCP Nurse Practitioner Family; Referring Provider Orthopaedic Surgery; Visit Provider Orthopaedic Surgery
DX: M25.562 Pain in left knee (principal)
CPT/HCPCS: 73721

== ENCOUNTER → 2019-02-15 14:00 | Outpatient (CLI) | payer MEDICAID, SELFPAY ==
[2019-02-16 07:58] VITALS: BMI 47.0
== END ==
PROVIDERS: Family Provider Nurse Practitioner Family; PCP Nurse Practitioner Family; Visit Provider Nurse Practitioner Family
DX: J02.9 Acute pharyngitis, unspecified (principal)
CPT/HCPCS: 87070

== ENCOUNTER → 2019-04-15 13:24 | Outpatient (CLI) | payer MEDICAID, SELFPAY ==
[2019-02-16 07:58] VITALS: BMI 47.0
--- NOTE | 2019-03-21 14:25 | HP.PCM_ITS ---
History and Physical Date of Admission: 03/22/19 Intake Vital Signs 02/16/19 Body Mass Index (BMI) 47.0 Intake Visit Reasons: LEFT KNEE Is patient in pain?: Yes Pain scale (1-10): 9 Allergies Penicillins Allergy (Unknown, Verified 12/03/18 09:14) Unknown Sulfa (Sulfonamide Antibiotics) Allergy (Unknown, Verified 12/03/18 09:14) Unknown Medications albuterol sulfate HFA 90 mcg/actuation aerosol inhaler 2 puff INHALATION Q4H PRN g 06/25/17 [History Confirmed 02/16/19] levothyroxine 112 mcg tablet 224 mcg PO QDAY #60 tab 03/26/18 [Rx Confirmed 02/16/19] pravastatin 40 mg tablet 40 mg PO DAILY 04/14/18 [History Confirmed 02/16/19] lisinopril 5 mg tablet 5 mg PO DAILY #90 tab 12/03/18 [Rx Confirmed 02/16/19] escitalopram 5 mg tablet 5 mg PO DAILY #30 tab 01/03/19 [Rx Confirmed 02/16/19] cane tips See Rx Instructions .ROUTE .MEDSUPPLY #2 ea 01/04/19 [Rx Confirmed 02/16/19] cane See Rx Instructions .ROUTE .MEDSUPPLY #1 ea 01/10/19 [Rx Confirmed 02/16/19] lidocaine 2 % mucosal solution 1 applic MUCOUS MEMBRANE BID-QID PRN #100 ml 02/15/19 [Rx Confirmed 02/16/19] saliva stimulant combination no.3 oral mucosal spray 1 applic MUCOUS MEMBRANE 4- 6XD PRN #44.3 ml 02/15/19 [Rx Confirmed 02/16/19] PFSH Medical History (Updated 12/03/18 @ 10:18 by SULY Morales) Fatigue (Chronic) Hypertension (Chronic) Migraines (Chronic) Arthritis (Chronic) Anemia (Chronic) Environmental allergies (Chronic) Hyperlipidemia (Chronic) Morbid obesity (Chronic) GERD (gastroesophageal reflux disease) (Chronic) Depression with anxiety (Chronic) Bilateral lower extremity edema (Chronic) Hypothyroidism (Chronic) COPD (chronic obstructive pulmonary disease) (Chronic) Continuous tobacco abuse (Chronic) Sleep-related breathing disorder (Chronic) Acute otitis externa (Acute) Epigastric pain (Acute) Microscopic hematuria (Acute) Chronic back pain (Chronic) UTI (urinary tract infection) (Resolved) Surgical History (Updated 06/25/17 @ 10:50 by Josette Shelley) Hx of tubal ligation (Resolved) S/P removal of ovarian cyst (Resolved) S/P thyroid biopsy (Resolved) Family History (Updated 06/25/17 @ 10:52 by Josette Shelley) Mother Depression Stomach cancer COPD (chronic obstructive pulmonary disease) Asthma Hypertension Thyroid disorder Father Heart disease Myocardial infarction Hypertension COPD (chronic obstructive pulmonary disease) CVA (cerebral vascular accident) Diabetes Lupus Daughter Asthma Heart disease Thyroid disorder Daughter Asthma Depression Social History (Updated 02/16/19 @ 10:52 by Clement Bolton DO) Smoking Status: Current every day smoker tobacco type: cigarettes second hand exposure: Yes alcohol intake: never substance use type: does not use what type of physical activity do you participate in: none HPI LEFT KNEE: Details: Parts of this documentation were recorded by a scribe, this d ocumentation accurately reflects the service provided and the decisions made by me, Clement Bolton DO 02/14/19 1130. MARY AVILA is a 53 year old F here today for an MRI f/u on left knee. Patient continues to have pain in the medial knee with swelling that goes into her foot. Denies any new injury or instability. She is ambulating with a slow gait and she continues to have clicking. Ortho Exam Left Knee Homans Sign: No Knee ROM: Yes ROM-Extension -20 to 0, No ROM-Flexion 0-140 Examination: Yes med jt line tenderness, Yes Lat jt line tenderness, Yes Pain with flexion KNEE: prominent inferior pole of patella Left Knee Skin/Wound: No ecchymosis, No erythema, No swelling Homans Sign: No Knee ROM: Yes ROM-Extension -20 to 0, No ROM-Flexion 0-140 (80) Examination: Yes med jt line tenderness, Yes Lat jt line tenderness, Yes Clau's Test (positive medial) Stability: NML: Anterior Drawer, NML: Posterior Drawer, NML: Valgus 30, NML: Varus 30 Apprehension with Lateral Translation: No Patella Grind: No KNEE: no joint effusion collateral ligaments intact Patient is markedly disheveled she has dirt all over her skin. Supplemental Info 01/07/2019 MRI left knee: Complex tear posterior horn and midbody medial meniscus small oblique tear posterior horn lateral meniscus joint effusion Assessment & Plan Problems 1. Acute medial meniscus tear of left knee, subsequent encounter S83.242D 2. Acute lateral meniscus tear of left knee, subsequent encounter S83.282D Plan Explained she has complex medial meniscus tear with small lateral meniscus tear. Her treatment options are do nothing or knee arthroscopy for partial meniscectomy. Explained that her swelling of the foot can remain after surgery and will need to use a compression after surgery. Instructed to keep incision clean after surgery and not allow her pets near the surgical sites. Reviewed the pre-operative plans with the patient. Risks and benefits of the procedure were fully explained, including but not limited to infection, neurovascular injury, continued pain, arthritis, stiffness, need for further surgery, re-injury, DVT, PE, general risks of anesthesia, and loss of limb or life. The patient understands all the risks and does wish to proceed with written consent. Follow up post op or sooner if pain, swelling, numbness or associated symptoms, or concerns develop. All questions answered. Patient in agreement of plan. Plan Detail Goals Decrease pain and spasm Decrease inflammation Barriers Obesity Coding Level of Care Code Off vis,est,level 3 Diagnoses Acute medial meniscus tear of left knee, subsequent encounter S83.242D ??Encounter type: subsequent encounter Acute lateral meniscus tear of left knee, subsequent encounter S83.282D ??Encounter type: subsequent encounter I have re-examined the patient. There are no clinical changes since date of exam
[2019-04-14 13:16] VITALS: BMI 50.4
== END ==
PROVIDERS: Family Provider Nurse Practitioner Family; PCP Nurse Practitioner Family; Referring Provider Orthopaedic Surgery; Visit Provider Orthopaedic Surgery
DX: R69 Illness, unspecified (principal)

== ENCOUNTER → 2019-05-16 12:12 | Outpatient (CLI) | payer MEDICAID, SELFPAY ==
[2019-05-16 11:14] VITALS: BMI 50.1
--- NOTE | 2019-05-16 12:15 | EKG12_ITS ---
Test Reason : CP Blood Pressure : / mmHG Vent. Rate : 084 BPM Atrial Rate : 084 BPM P-R Int : 156 ms QRS Dur : 058 ms QT Int : 360 ms P-R-T Axes : 053 010 036 degrees QTc Int : 425 ms Normal sinus rhythm Normal ECG Confirmed by HUBERT CAMPOS, HANSEL ([id number]), acquisitions editor AZEB HARTLEY ([id number]) on 05/17/2019 1:57:06 PM Referred By: Sarah Cleaning Confirmed By:HANSEL GASPAR MD
== END ==
PROVIDERS: Family Provider Internal Medicine; PCP Internal Medicine; Referring Provider Internal Medicine; Visit Provider Internal Medicine
DX: I10 Essential (primary) hypertension (principal)
CPT/HCPCS: 93005

== ENCOUNTER 2019-05-31 10:42 | Day surgery (SDC) | payer MEDICAID, SELFPAY ==
[2019-05-09 07:56] VITALS: BMI 50.1
[2019-05-16 11:14] VITALS: BMI 50.1
[2019-05-31] VITALS (12 sets, daily range): BP systolic 106–136; BP diastolic 68–88; PULSE 85–100; RESP 16–26; TEMP 36.1–36.4; O2SAT 93–98; BMI 49.8
[2019-05-31] MEDS: Lactated Ringers 1,000 ML 100 ML IV (11:24)
[2019-05-31] MEDS: Ipratropium/Albuterol Sulfate 3 ML AMPUL.NEB INHALATION ×2 (12:19→14:06)
[2019-05-31] MEDS: Epinephrine (1 mg/ml) 1 MG/ML VIAL (12:53)
[2019-05-31] MEDS: Bupivacaine 0.5% PF 10 ML VIAL (13:21)
[2019-05-31] MEDS: MethylPREDNISolone Acetate 80 MG/ML Vial (13:21)
--- NOTE | 2019-05-31 13:22 | DCINST_ITS ---
Discharge Diet: No Restrictions Call your doctor if you observe: Fever of 101 or Higher, Shortness of breath, Chest pain Additional Instructions: Ice and elevate next 72 hours .keep dressing on clean and dry for 48 hours then may remove begin showering daily but do not submerge in tub or pool. After shower may apply Band-Aids . Encourage knee range of motion weightbearing as tolerated, use crutches until confident in knee then may discontinue. No strenuous activity. When not ambulating keep iced and elevated next 72 hours. Allergies/Adverse Reactions: Allergies Penicillins Allergy (Unknown, Verified 05/31/19 11:12) Unknown Sulfa (Sulfonamide Antibiotics) Allergy (Unknown, Verified 05/31/19 11:12) Unknown Medications to take at Discharge levothyroxine 112 mcg tablet 224 mcg PO QDAY #60 tab 03/26/18 albuterol sulfate HFA 90 mcg/actuation aerosol inhaler 1 - 2 puff INHALATION Q6H PRN #8.5 g 03/15/19 doxycycline monohydrate 100 mg capsule 100 mg PO BID #14 cap 04/26/19 escitalopram 10 mg tablet 10 mg PO DAILY #90 tab 04/26/19 amlodipine 10 mg tablet 10 mg PO DAILY #90 tab 05/16/19 pravastatin 40 mg tablet 40 mg PO DAILY #90 tab 05/16/19 Omeprazole [Prilosec] 20 mg PO DAILY 05/24/19 Tiotropium Rotan [Spiriva 18 MCG] 1 puff INHALATION DAILY 05/24/19 Oxycodone HCl/Acetaminophen [Percocet 5/325] 1 - 2 tab PO Q4H PRN PRN #50 tab 05/31/19 The following prescriptions were given: Oxycodone HCl/Acetaminophen [Percocet 5/325] 1 - 2 tab PO Q4H PRN PRN #50 tab PRN Reason: Pain Transmission Status: Sent to [facility] #30 Primary Care Physician: Sarah Cleaning MD [Primary Care Provider] - Test Results: Test results from this visit will be discussed in further detail at your follow- up appointment, if applicable. Please Follow Up With: Clement Bolton DO - 2 weeks
--- NOTE | 2019-05-31 13:22 | PCM.HP.BLA ---
History and Physical Date of Admission: 05/31/19 Intake Vital Signs 05/09/19 Body Mass Index (BMI) 50.1 Intake Visit Reasons: LEFT KNEE Chief Complaint: Bad cold - Hip & back pain, chest pain & wants referral to a counsellor Allergies Penicillins Allergy (Unknown, Verified 04/26/19 14:23) Unknown Sulfa (Sulfonamide Antibiotics) Allergy (Unknown, Verified 04/26/19 14:23) Unknown [facility] Medical History (Updated 03/21/19 @ 14:26 by Clement Bolton DO) Fatigue (Chronic) Hypertension (Chronic) Migraines (Chronic) Arthritis (Chronic) Anemia (Chronic) Environmental allergies (Chronic) Hyperlipidemia (Chronic) Morbid obesity (Chronic) GERD (gastroesophageal reflux disease) (Chronic) Depression with anxiety (Chronic) Bilateral lower extremity edema (Chronic) Hypothyroidism (Chronic) COPD (chronic obstructive pulmonary disease) (Chronic) Continuous tobacco abuse (Chronic) Sleep-related breathing disorder (Chronic) Acute otitis externa (Acute) Epigastric pain (Acute) Microscopic hematuria (Acute) Chronic back pain (Chronic) UTI (urinary tract infection) (Resolved) Surgical History (Updated 06/25/17 @ 10:50 by Josette Shelley) Hx of tubal ligation (Resolved) S/P removal of ovarian cyst (Resolved) S/P thyroid biopsy (Resolved) Family History (Updated 06/25/17 @ 10:52 by Josette Shelley) Mother Depression Stomach cancer COPD (chronic obstructive pulmonary disease) Asthma Hypertension Thyroid disorder Father Heart disease Myocardial infarction Hypertension COPD (chronic obstructive pulmonary disease) CVA (cerebral vascular accident) Diabetes Lupus Daughter Asthma Heart disease Thyroid disorder Daughter Asthma Depression Social History (Updated 05/09/19 @ 13:53 by Clement Bolton DO) Smoking Status: Current every day smoker tobacco type: cigarettes second hand exposure: Yes alcohol intake: never substance use type: does not use what type of physical activity do you participate in: none HPI LEFT KNEE: Details: Parts of this documentation were recorded by a scribe, this documentation accurately reflects the service provided and the decisions made by me, Clement Bolton DO 05/09/19 0755. MARY AVILA is a 53 year old F here today for F/U on left knee pain that she has had for 2 years now. Patient had an MRI in 01/2019 and was homeless at the time so she was not able to proceed with surgery. Patient is here today for continued left medial sided knee pain and she states she wishes to discuss surgery today and she states she should be able to follow through with surgery now. Patient is having painful giving out of her knee and painful popping. Denies numbness, tingling or other associated symptoms. ROS Musc Reports joint pain, Reports joint swelling, Denies numbness, Denies radiating pain into limb, Reports stiffness, Denies tingling Skin/Breast Denies redness, Denies lesions, Denies itching, Denies rash Neuro No numbness, No tingling Ortho Exam Left Knee Homans Sign: No Knee ROM: Yes ROM-Extension -20 to 0, No ROM-Flexion 0-140 KNEE: prominent inferior pole of patella Left Knee Skin/Wound: No ecchymosis, No erythema, No swelling Homans Sign: No Knee ROM: Yes ROM-Extension -20 to 0, No ROM-Flexion 0-140 (80) Examination: Yes med jt line tenderness, Yes Lat jt line tenderness, Yes Clau's Test (positive medial) Stability: NML: Anterior Drawer, NML: Posterior Drawer, NML: Valgus 30, NML: Varus 30 Apprehension with Lateral Translation: No Patella Grind: No KNEE: no joint effusion collateral ligaments intact Supplemental Info 01/07/2019 MRI left knee: Complex tear posterior horn and midbody medial meniscus small oblique tear posterior horn lateral meniscus joint effusion Assessment & Plan Problems 1. Complex tear of medial meniscus of left knee as current injury, subsequent encounter S83.376D 2. Tear of lateral meniscus of left knee, current, unspecified tear type, subsequent encounter S83.882D Plan Explained she has complex medial meniscus tear with small lateral meniscus tear. Her treatment options are do nothing or knee arthroscopy for partial meniscectomy. Explained that her swelling of the foot can remain after surgery and will need to use a compression after surgery. Instructed to keep incision clean after surgery and not allow her pets near the surgical sites. Educated that she cant take any Aleve or ibuprofen within 7 days of the procedure Reviewed the pre-operative plans with the patient. Risks and benefits of the procedure were fully explained, including but not limited to infection, neurovascular injury, continued pain, arthritis, stiffness, need for further surgery, re-injury, DVT, PE, general risks of anesthesia, and loss of limb or life. The patient understands all the risks and does wish to proceed with written consent. Follow up post op or sooner if pain, swelling, numbness or associated symptoms, or concerns develop. All questions answered. Patient in agreement of plan. Plan Detail Goals Decrease pain and spasm Decrease inflammation Barriers Obesity Coding Level of Care Code Off vis,est,level 3 Diagnoses Complex tear of medial meniscus of left knee as current injury, subsequent encounter S83.232D ??Encounter type: subsequent encounter ??Meniscus tear of knee type: complex ??Tear current or old: current Tear of lateral meniscus of left knee, current, unspecified tear type, subsequent encounter S83.361D ??Encounter type: subsequent encounter ??Meniscus tear of knee type: unspecified type ??Tear current or old: current I have re-examined the patient. There are no clinical changes since date of exam
[2019-05-31] MEDS: Sugammadex Sodium 200 MG/2 ML VIAL IV (13:23)
--- NOTE | 2019-05-31 13:23 | OP.PCM_ITS ---
Report of Operation Date of Procedure: 05/31/19 Description of Surgical Findings:: Preop diagnosis: Left knee medial and lateral meniscal tear DJD Postoperative diagnosis: Small horizontal tear body lateral meniscus posterior horn medial meniscus tear grade 3 diffuse cartilage wear medial femoral condyle Procedure: Left knee arthroscopic partial medial and lateral meniscectomy chondroplasty medial compartment Anesthesia: General Estimated blood loss: 5 mL Tourniquet time: 28 minutes minutes 300 mmHg Complications: none Indication for procedure: 53-year-old female patient with ongoing mechanical symptoms who is failed conservative treatment did have MRI evidence of medial and lateral meniscal tearing as well as DJD the patient did wish to proceed with an elective arthroscopic surgery to attempt to alleviate the symptoms. Risk benefits and alternatives of the procedure were reviewed including risk of bleeding infection nerve artery tissue damage need for further surgery continued pain and expected postoperative course. Procedure: The patient was met in the preoperative holding area. The operative extremity was identified by both patient and physician and family and marked. Patient was brought back to the operating room on a wheeled cart and transferred to the operating table in the supine position. Anesthesia was started. A well- padded tourniquet was placed on the operative extremity. A lower extremity leg medina was secured to the operative extremity. The contralateral extremity was well-padded and the end of the bed was flexed to 90 degrees. The patient was prepped and draped in the usual sterile fashion. A timeout was called to ensure the proper patient, procedure, and extremity were being contemplated. 0.5% Marcaine with epinephrine was injected into the planned incisional areas under the skin only. An Esmarch was used to exsanguinate the extremity and the tourniquet was inflated. An 11 blade scalpel was used to make a stab incision in the anterior lateral portal. The arthroscope was inserted into the intercondylar notch and inflow and outflow tubes were attached. Arthroscopic visualization began. The medial compartment was entered. An 18-gauge spinal needle was used to establish the placement for anterior medial portal. An 11 blade scalpel was used to make a stab incision. Blunt probe was inserted followed by a meniscal probe. Posterior horn medial meniscus tear was identified and debrided with arthroscopic biting instruments shaver and ArthroCa re wand the ACL was intact. The lateral compartment was entered small horizontal tearing of the body of the lateral meniscus which was debrided with a shaver The arthroscope was switched to the medial portal to complete the procedure. The medial and lateral gutters were inspected and were free of loose bodies. The patellofemoral joint was inspected and was free of cartilage pathology. Slight lateral patellar tracking the knee was thoroughly irrigated and drained. An intra-articular injection with 5 cc 0.5% Marcaine plain 4 mg of morphine and 40 mg of Depo-Medrol was injected intra-articularly. The arthroscope was removed the portals were closed with 3-0 nylon arthroscopic stitches. Followed by Xeroform 4 x 4's ABDs web roll and an Miguel wrap. The tourniquet was let down and the drapes were removed. All counts were correct. The patient was brought back to the PACU in stable condition.
[2019-05-31] MEDS: Bupiv/Epi 0.25% 30 ML Vial (13:25)
--- NOTE | 2019-05-31 13:54 | SUR.PHASEI ---
pt color dusky, pulse ox 96% on 6l simple mask, lung sounds coarse. duo neb given, cpap to be applied per dr garcia.
== END 2019-05-31 15:48 | disposition home or self-care (01) ==
LOC: SDC 10:43 → AC 10:45
PROVIDERS: Family Provider Internal Medicine; PCP Internal Medicine; Referring Provider Orthopaedic Surgery; Visit Provider Orthopaedic Surgery
PROC: (CPT 29870; principal; 2019-05-31 12:10)
DX: S83.232A Complex tear of medial meniscus, current injury, left knee, initial encounter (principal); S83.282A Other tear of lateral meniscus, current injury, left knee, initial encounter; X58.XXXA Exposure to other specified factors, initial encounter; Y93.9 Activity, unspecified; I10 Essential (primary) hypertension; J44.9 Chronic obstructive pulmonary disease, unspecified; E78.00 Pure hypercholesterolemia, unspecified; E03.9 Hypothyroidism, unspecified; M17.12 Unilateral primary osteoarthritis, left knee; G47.30 Sleep apnea, unspecified; F32.9 Major depressive disorder, single episode, unspecified; F41.9 Anxiety disorder, unspecified; E66.01 Morbid (severe) obesity due to excess calories; Z68.43 Body mass index [BMI] 50.0-59.9, adult; F17.210 Nicotine dependence, cigarettes, uncomplicated; Z79.899 Other long term (current) drug therapy
CPT/HCPCS: 01400; 29880; 94002; 94640; 94660; J7120; J2405

== ENCOUNTER 2019-07-29 09:20 | Outpatient (RCR) | payer MEDICAID, SELFPAY ==
[2019-04-26 14:26] VITALS: BMI 50.1
[2019-05-09 07:56] VITALS: BMI 50.1
[2019-07-19 12:57] VITALS: BMI 49.8
== END 2019-08-05 23:59 ==
LOC: NS 09:20
PROVIDERS: Family Provider Nurse Practitioner Family; PCP Internal Medicine; Visit Provider Nurse Practitioner Family
DX: Z71.3 Dietary counseling and surveillance (principal); E66.01 Morbid (severe) obesity due to excess calories; Z68.43 Body mass index [BMI] 50.0-59.9, adult

== ENCOUNTER → 2019-08-02 10:07 | Outpatient (CLI) | payer MEDICAID, SELFPAY ==
[2019-08-02 09:45] VITALS: BMI 52.0
--- NOTE | 2019-08-02 11:18 | RAD_ITS ---
STUDY: X-RAY - LUMBAR SPINE REASON FOR EXAM: Female, 53 years old. PAIN IN LOWER BACK INTO BOTH HIPS AND DOWN LEGS WITH NUMBNESS AND TINGLING FOR A LONG TIME GETTING WORSE PER PATIENT. TECHNIQUE: 5 view(s) of the lumbar spine were obtained. COMPARISON: None FINDINGS: Normal lumbar lordosis. There is no substantial scoliosis. There is a normal alignment of the vertebrae. Normal vertebral bodies and endplates. Normal disc space heights. The soft tissue structures are unremarkable. RAD/L/S Spine Min 4 Views IMPRESSION: Normal x-ray examination of the lumbar spine. Electronically Signed: Renny Pate MD at 4:45 EST Tel , Service support ,
[2019-08-02 12:10] LABS: Absolute Lymphocyte Count 2.89 X10^3/uL (0.83-4.51); Absolute Neutrophil Count 4.3 X10^3/uL (2.0-7.7); Basophil# 0.07 X10^3/uL; Basophil% 0.9 % (0-1); Eosinophil# 0.13 X10^3/uL; Eosinophils% 1.6 % (0-5); Hematocrit 44.8 % (37-47); Hemoglobin 13.8 g/dL (12.0-15.0); Lymphocyte # 2.89 X10^3/ul (4.0); Lymphocyte % 35.9 % (19-41); Mean Corp Hgb Conc 30.8 g/dL (32-36); Mean Corpuscular Hgb 26.3 pg (27.0-32.0); Mean Corpuscular Volume 85.5 fL (81-99); Mean Platelet Vol. 9.6 fl (6.2-12.0); Monocyte# 0.63 X10^3/uL; Monocyte% 7.8 % (0-10); NRBC Flagged by Analyzer 0 % (0-5); Neutrophil # 4.31 X10^3/uL (2.7-7.7); Neutrophil % 53.4 % (47-70); Platelet Count 397 K/mm3 (150-450); RBC Distribution Width CV 15.5 % (11.6-14.6); RBC Distribution Width SD 47.7 fl (35.1-43.9); Red Blood Count 5.24 M/mm3 (4.2-5.4); White Blood Count 8.1 K/mm3 (4.4-11.0)
[2019-08-02 12:53] LABS: ALB/GLOB Ratio 0.7 RATIO (0.9-2.4); AST(SGOT) 19 U/L (15-37); Alanine Aminotransfer ALT/SGPT 32 U/L (13-56); Albumin, Serum 3.4 g/dL (3.2-5.0); Alkaline Phosphatase 125 U/L (45-117); Anion Gap 4 (5-15); BUN 15 mg/dL (7-18); BUN/Creat Ratio 16.4 RATIO (10-20); Calcium,Total 9.6 mg/dL (8.5-10.1); Chloride 103 mmol/L (98-107); Cholesterol 175 mg/dL (200); Creatinine, Serum 0.92 mg/dL (0.55-1.02); EST Glomerular Filtration Rate 69 mL/min (>60); Est Glom Filt Rate - Afr Amer 83 mL/min (>60); Globulin 4.6 g/dL (2.2-4.2); Glucose 95 mg/dL (74-106); High Density Lipoprotein 37 mg/dL; Potassium 4.6 mmol/L (3.5-5.1); Sodium Level 137 mmol/L (136-145); Triglycerides 128 mg/dL; Very Low Density Lipoprotein 26 mg/dL (5-40)
== END ==
PROVIDERS: PCP Internal Medicine; Referring Provider Internal Medicine; Visit Provider Internal Medicine
DX: I10 Essential (primary) hypertension (principal); E78.5 Hyperlipidemia, unspecified; E03.9 Hypothyroidism, unspecified; M48.00 Spinal stenosis, site unspecified
CPT/HCPCS: 36415; 72110; 80053; 80061; 84443; 85025

== ENCOUNTER → 2019-08-26 10:35 | Outpatient (CLI) | payer MEDICAID, SELFPAY ==
[2019-07-14 06:56] VITALS: BMI 51.2
[2019-08-26 09:48] VITALS: BMI 51.1
[2019-08-26 10:37] LABS: Mucous, Urine 0 SEEN /hpf (<or=2+)
[2019-08-26 13:19] LABS: Color, Urine Yellow (Yellow); Glucose, Dipstick Normal (Normal); Ketone-Dipstick Negative (Negative); Leukocyte Esterase-Dipstick 500 /ul (Negative); Nitrite-Dipstick Negative (Negative); Occult Blood-Urine 150 /ul (Negative); Protein-Dipstick 15 mg/dl (Negative); Specific Gravity, Urine 1.005 (1.002-1.030); Urine Bilirubin Dipstick Negative (Negative); Urine Clarity Sl. Cloudy (Clear); Urine Urobilinogen Normal (Normal)
[2019-08-26 13:36] LABS: Bacteria 1+ /hpf (None Seen); Red Blood Cells-Urine 0-5 SEEN /hpf (0-5); Squamous Epithelial Cells - UA 5-10 SEEN /hpf (5-10); White Blood Cells 5-10 SEEN /hpf (0-5)
== END ==
PROVIDERS: Nurse Practitioner Family; Family Provider Internal Medicine; PCP Internal Medicine; Referring Provider Internal Medicine Critical Care Medicine; Visit Provider Internal Medicine Critical Care Medicine
DX: R30.0 Dysuria (principal)
CPT/HCPCS: 81001; 87086; 87088; 87186

== ENCOUNTER → 2019-08-31 11:11 | Outpatient (CLI) | payer MEDICAID, SELFPAY ==
[2019-08-26 09:48] VITALS: BMI 51.1
[2019-08-31 11:36] VITALS: PULSE 101; PULSE 105; PULSE 108; PULSE 113; PULSE 96; PULSE 97; PULSE 98; O2SAT 92; O2SAT 93; O2SAT 94; O2SAT 95; O2SAT 96
--- NOTE | 2019-09-02 11:02 | PCM.PSN.6M ---
PSN 6 Minute Walk Test - 6 Minute Walk Test 6 Minute Walk Test: 6 Minute Walk Test PSN:6-Minute Walk Test Start: 08/31/19 11:35 Freq: Status: Active Protocol: [id number].6MINW Document 08/31/19 11:36 SARANYA (Rec: 08/31/19 11:40 SARANYA [id number]) 6 Minute Walk Test Date Performed 08/31/19 Time Performed 11:15 Height 5 ft 4 in Weight: 289 lb Weight in Pounds 289.[address]: Ty Pulido Assistive device used: Walker Pre-test Oxygen Delivery Method Room Air Pulse Ox (%) 94 Pulse Rate (60-100 beats/min) 97 Dyspnea Betsy Scale (0-10) 0.5 Exertion Betsy Scale (6-20) 6 1st minute Oxygen Delivery Method Room Air Pulse Ox (%) 96 Pulse Rate (60-100 beats/min) 108 H 2nd minute Oxygen Delivery Method Room Air Pulse Ox (%) 95 Pulse Rate (60-100 beats/min) 113 H Number of Rests Taken 1 3rd minute Oxygen Delivery Method Room Air Pulse Ox (%) 92 Pulse Rate (60-100 beats/min) 105 H 4th minute Oxygen Delivery Method Room Air Pulse Ox (%) 92 Pulse Rate (60-100 beats/min) 96 5th minute Oxygen Delivery Method Room Air Pulse Ox (%) 92 Pulse Rate (60-100 beats/min) 98 6th minute Oxygen Delivery Method Room Air Pulse Ox (%) 93 Pulse Rate (60-100 beats/min) 101 H Dyspnea Betsy Scale (0-10) 5 Exertion Betsy Scale (6-20) 15 Post-test Oxygen Delivery Method Room Air Pulse Ox (%) 96 Pulse Rate (60-100 beats/min) 98 Full Laps Walked 7 Partial Lap, Number of Tiles Walked 24 Total Distance Walked (ft) 437 - Interpretation Interpretation: The patient ambulated 437 feet over the course of 6 minutes beginning on room air with the use of a walker. Pretesting oxygen saturation was noted to be 94% on room air. With ambulation, the marina oxygen saturation was 92%. Although there was evidence of impaired walk distance, there was no significant exertional oxygen desaturation. - Recommendations Recommendations: There is no indication for the use of supplemental oxygen at this time.
== END ==
PROVIDERS: PCP Internal Medicine; Referring Provider Internal Medicine Critical Care Medicine; Visit Provider Internal Medicine Critical Care Medicine
DX: J44.9 Chronic obstructive pulmonary disease, unspecified (principal)
CPT/HCPCS: 94618

== ENCOUNTER 2019-09-12 14:00 | Outpatient (RCR) | payer MEDICAID, SELFPAY ==
[2019-08-09 09:58] VITALS: BMI 49.8
[2019-08-26 09:48] VITALS: BMI 51.1
--- NOTE | 2019-09-14 20:11 | HP.OTFCE.D ---
FCE D/C Summary - Discharge MARY AVILA was seen for a one time visit for an FCE on 09/09/19 and is discharged.
--- NOTE | 2019-09-16 11:41 | HP.FCE ---
Date of Evaluation: 09/09/19 - 09/09/2019 and 09/12/2019; two day FCE Floor (Occasional 1-33% of Day): 15 lbs Floor (Frequent 34-66% of Day): 7 lbs Floor (Constant 67-100% of Day): negligible Floor PDL: Sedentary-Light Knee (Occasional 1-33% of Day): 15 lbs Knee (Frequent 34-66% of Day): 7.5 lbs Knee (Constant 67-100% of Day): negligible Knee PDL: Sedentary-Light Waist (Occasional 1-33% of Day): 20 lbs Waist (Frequent 34-66% of Day): 10 lbs Waist (Constant 67-100% of Day): negligible Waist PDL: Light Shoulder (Occasional 1-33% of Day): 15 lbs Shoulder (Frequent 34-66% of Day): 10 lbs Shoulder (Constant 67-100% of Day): negligible Shoulder PDL: Sedentary-Light Overhead (Occasional 1-33% of Day): 15 Overhead (Frequent 34-66% of Day): 10 Overhead (Constant 67-100% of Day): negligible Overhead PDL: Sedentary-Light Comments: Increased self-limiting behaviors noted consistently throughout session. She exhibits decreased consistency of effort but general debility. Bending: Frequent Ability (34-66% of day) Squatting: Frequent Ability (34-66% of day) Kneeling: Occasional Ability (1-33% of day) Reaching out: Frequent Ability (34-66% of day) Reaching up: Frequent Ability (34-66% of day) Sitting: Frequent Ability (34-66% of day) Walking: Occasional Ability (1-33% of day) Comments: needs further endurance training Standing: Frequent Ability (34-66% of day) Duration Sedentary Sedentary Light Light Light Medium Medium Medium Heavy Very Heavy Heavy Occasional (0-33% of day) Frequent (34-66% of day) Constant (67-100% of day) 10 # Negligible Negligible 15 # 8 # Negligible 20 # 10# Negli. 35 # 18 # 7 # 50 # 25 # 10 # 75 # 100 # >100 # 38 # 50 # >50 # 15 # 20 # >20 # Height: 1.63 m Hand Dominance: Right BP (Medication Use/Usual Values per pt report): Yes Medical History Including Restrictions: No restrictions. Diagnoses: Past medical history: hypertension, obstructive sleep apnea, COPD, hyperlipemia, hypothyroid, left knee pain, chronic back pain, environmental allergies, morbid obesity, depression and anxiety, arthritis, anemia, urinary frequency. Current: Dora has experiencing increased left knee and back pain and has been recommended for functional capacity evaluation (FCE). She recently had Left knee arthroscopic partial medial and lateral meniscectomy 05/31/2019. Medication list scanned to chart. Symptoms: Dora noted main symptoms are low back related pain and left knee pain. She noted pain is aching bt not sharp pain. She noted it is constant. Pain: Dora is currently not on pain management program as the apprentice painter neckties wanted to complete 'injections' per patient report to her back and she was not willing to complete at this time. She manages symptoms with over the counter medications such as ibuprofen to help decrease discomfort. She has not completed physical therapy for left knee since surgery. Arthur Pain Questionnaire is a self-report pain assessment to determine a patient?s accurate psychodynamics for accurate pain rating. A score of 30 or high indicates poor psychodynamics and the greater probability of decreased accuracy with accurate pain reporting. Day 1: Pre- Arthur: 17. Post Arthur: 19. Day 2: Pre- Arthur: 20. Post Arthur: 23. Fear Avoidance Questionnaire (FAQ) is a client self-report assessment for 18-64+ that has shown to be reliable and valid for determining increased fear with movements. A score of 96 or higher indicates increased fear avoidance behaviors. Day1: FAQ Pre-testin. -Fear avoidance belief about work (items 6,7,9,10,11,12,15): 0. -Fear avoidance belief about physical activity (items 2,3,4,5): 20. FAQ Post testing: -Fear avoidance belief about work (items 6,7,9,10,11,12,15): 6. -Fear avoidance belief about physical activity (items 2,3,4,5):22 (did not complete form). Day2: FAQ Pre-testin- did not finish. -Fear avoidance belief about work (items 6,7,9,10,11,12,15): 0. -Fear avoidance belief about physical activity (items 2,3,4,5):20. FAQ Post testin- did not finish. -Fear avoidance belief about work (items 6,7,9,10,11,12,15): 0. -Fear avoidance belief about physical activity (items 2,3,4,5): 16. Oswestry Disability Index completed as questionnaire to promote subject measurement of pain related to her low back. Post Day 1: Total: . Post Day 2: Total: Work History: Dora has been unemployed since 2007 and noted 'she has been trying to get on long-term disability' since 2008. She has court hearing on September 14, 2019. Behavioral: Dora exhibit self-limiting behaviors but was encouragement will participate in tasks asked of her. She exhibits increased debility and general weakness generalized throughout body. ADLS: Dora lives with daughter and her 'son's cousin' in mobile home. She has three steps to enter home with one sided handrail. She noted she uses wheel walker or rollator for ambulation in community due to back related pain. She was caring for her son's cousin by cooking and providing his medications, but her daughter is currently cooking, cleaning, and completing laundry tasks. Dora continue to provide medication for son's cousin. Dora is still driving and completing all self-care tasks with some minimal help from daughter for more home management duties. Physical Examination: The purpose of this functional capacity evaluation (FCE) was to determine Dora?s physical ability. This FCE was performed in order to abrasive grader helper in the determination of her physical ability. Aerobic limiting factor: 85% of max adjust HR= (220-age) *.85= 143. Day 1: Begining Diagnostics: - heart rate with use of pulse oximeter: 101 bpm. - oxygen with use of pulse oximeter: 93%. - blood pressure with use of wrist cuff: 147/88 mmHg. Day 2: Begining Diagnostics: - heart rate with use of pulse oximeter: 112. - oxygen with use of pulse oximeter: 96%. - blood pressure with use of wrist cuff: 147/97 mmHg ROM: Lumbar Spine with goniometer: -Flexion:0-73. -Extension: 0-25. -Lateral Flexion: R 0-28 , L 0-30. Knee: - R 0-119 , L 6-103. Able to move knee to chest. Completed ability to come leg straight in air in supine. Pain at end point only. Like from soft tissue tightness. Shortness of breath noted with all movements which is likely secondary to debility. Strength: Strength measurements completed with use of manual muscle testing and short arm access of dynamometer. Results are as follows: Upper Body: Shoulder flexion: -Dynamometer: R 9.8 , L 10.6 lbs. Shoulder extension: -Dynamometer: R 6.7 , L 7.6 lbs. Shoulder abduction: -Dynamometer: R 9.8 , L 9.1 lbs. Shoulder Internal Rotation: -Dynamometer: R 13.2 , L 11.1 lbs. Shoulder External Rotation: -Dynamometer: R 7.7 , L 8.0 lbs. Elbow flexion: -Dynamometer: R 18.0 , L 16.7 lbs. Elbow extension: -Dynamometer: R 9.0 , L 9.9 lbs. Lower Body: Hip flexion: -Dynamometer: R 17.4 , L 13.6 lbs. Hip adduction: -Dynamometer: R 10.2 , L 9.8 lbs. Hip abduction: -Dynamometer: R 9.8 , L 9.5 lbs. Knee Flexion: -Dynamometer: R 15,3 , L 18.3 lbs. Knee extension: -Dynamometer: R 15.8 , L 10.3 lbs. Plantarflexion: -Dynamometer: R 48.3 , L 31.4 lbs. Dorsiflexion: -Dynamometer: R 16.8 , L 20 lbs. Completed at distal end points; some inconsistencies nioted with some but not all measurements. COmpleted testing sitting edge of mat. Right Groover And Striper Operator Strength Average: 36.00 Left Groover And Striper Operator Strength Average: 25.66 Right Lateral Pinch Average: 11.66 Right Lateral Pinch Percentile: bewtween 25th and 50th Left Lateral Pinch Average: 6.66 Left Lateral Pinch Percentile: below 10th Right Tripod Pinch Average: 8.00 Right Tripod Pinch Percentile: between 10th and 25th Left Tripod Pinch Average: 7.33 Left Tripod Pinch Percentile: between 10th and 25th Comments: Five Span Groover And Striper Operator testing on Dynamometer: Position 1: R 36 , L 26. Position 2: R 28 , L 34. Position 3: R 35 , L 30. Position 4: R 35 , L 26. Position 5: R 25 , L 25. A coefficient of variation greater than 15 % indicated decreased consistency of effort. Coefficient of variation: R 15%, L 13%. Consistency of Effort: consistent Sensation: Sensation testing completed on bilateral hands as denied number and tingling in feet with monofilament touch test. She noted no adverse sensations in hands, but hands slightly discolored on palm. A score of normal on touch test is 2.83 and within normal range with just some discrepancies for light touch is between 3.22-3.61. The higher the number in more complications related to patient?s ability to perceive touch related sensory stimuli. R hand: Thumb 2.83 ,2nd 2.83 , 3rd 2.83 , 4th 2.83 , 5th 2.83. L hand: Thumb 2.83 ,2nd 2.83 , 3rd 2.83 , 4th 2.83 , 5th 2.83 Fine Motor: Completed the Purdue Pegboard test to further determine the patient?s ability to complete 2-3 step tasks, assess fine motor control and general dexterity needed to complete assembly like work. The results are as follows: Right Hand: 14. -Percentile: 26 th. Left Hand: 11. -Percentile:1st. Both Hands: 9. -Percentile: 1st. R+ L+ Both: 34. -percentile: 1st. Assembly: 5. -percentile:<1st. Completed in standing with table set at 35 inches from floor height. Compensations noted by observing Dora to consistently be leaning on table. Completed with ability to stand during static standing tasks with upper extremity movements for 12 minutes without break but mechanical compensations of weight shifting and leaving on table. Balance: Functional reach test is used to determine static balance in patients. A score of 15 is normal and less than 10 increases risk of falling. A score of 6 or less significantly increases a patient?s risk of falling. [place] 1: 12. [place] 2: 12.5. [place] 3: 11.5. Average: 12. Good static balance reported. Functional Gait Assessment (FGA) is a dynamic balance test to determine vestibular functioning and general dynamic balance ability of patient 18-65+. This assessment can be used with clients of various backgrounds to determine functional dynamic balance needed to complete every day work related tasks. 1.Gait Level Surface:1. 2.Change in Gait Speed: 0. 3.Gait with horizontal head turns:1. 4.Gait with vertical head turns:0. 5.Gait and pivot turn:2. 6.Step over obstacle:1. 7.Gait with narrow base of support: 1. 8.Gait with eyes closed: 1. 9.Ambulating Backwards: 1. 10.Steps: 1. Total Score: 9 /maximum score 30. Completed balance testing without rollator and assistance from therapist if needed. Significantly reduced balance due to general debility and self-limiting behaviors. She would benefit from increased balance testing and potentially intervention. Bending: Heart rate prior to beginning with use of pulse oximeter: 109 bpm. 3x, 10x in 53.83 seconds, and 10x faster in 38.45 seconds. Completed with fair body mechanics and ability to complete 50% of full bend. Completed without assistive device in static standing position. Completed with increased mechanical compensations of decreased spinal alignment. She is limited to complete full bend due to soft tissue. Heart rate posttest with use of pulse oximeter: 124 bpm. Perceived pain:5-6/10 Squatting: Heart rate prior to beginning with use of pulse oximeter: 125 bpm. 3x, 10x in 30.20 seconds, and 10x faster in 21.48 seconds. Completed squatting with fair body mechanics. Completed with increased anterior pelvic tilt with increased flexion of knee decreased ergonomic psoitioning. Decreased spinal alignment noted with compensations. Completed equal weight bearing into bilateral lower extremity. She exhibits ability to complete 50% of full squat and can completed frequently. No increase in heart rate to indicate pain and shortness of breath due to exertion. . Heart rate posttest with use of pulse oximeter: 135 bpm. Perceived pain: 5/10 Kneeling: Heart rate prior to beginning with use of pulse oximeter: 129 bpm. 3x, 10x in 23.60 seconds, and 10x faster in 16.63 seconds. Completed with fair body mechanics and ability to complete 25% of full kneel. She exhibits self-limiting behavior and increased posterior chain weakness of left lower extremity. Increased mechanical compensations of lateral leaning to completed righting reactions t maintain balance. She exhibits ability to complete occasionally only and should really avoid tasks as needs external support for safety. Heart rate posttest with use of pulse oximeter: 130 bpm. Perceived pain: 6/10 Reaching out/up: Heart rate prior to beginning with use of pulse oximeter: 133 bpm. 3x, 10x in 15.94 seconds, and 10x faster in 11.82 seconds. Heart rate posttest with use of pulse oximeter: 125 bpm. Perceived pain: 5/10. Heart rate prior to beginning with use of pulse oximeter: 126 bpm. 3x, 10x in 14.60 seconds, and 10x faster in 10.73 seconds. Heart rate posttest with use of pulse oximeter: 131 bpm. Perceived pain: 5/10. Dora exhibit ability to complete full range of motion with bilateral upper extremities. She exhibits equal weight bearing into bilateral lower extremities to promote increased ability to complete tasks. She exhibits ability to complete reaching tasks frequently. Walking: Heart rate prior to beginning with use of pulse oximeter: 130 bpm. Completed walking around facility with completing two laps around facility without rollator and remaining four laps with rollator. She exhibits self-limiting behaviors with increased 'I can't? but with encouragement completed. Decreased spinal posture with increased forward leaning when walking without and with assisted device. Completed 15 minutes of walking tasks around facility with increased shortness of breath and need for about six standing breaks. Increased debility noted and decreased endurance observed. Exhibits ability to complete occasionally walking due to debility. Heart rate and oxygen were within normal range during task. Heart rate at end of task with use of pulse oximeter: 138 bpm. Pulse oximeter: 96% Standing: completed 15 mins of standing with increased mechanical compensations observed with use of external supports and lateral leaning and weight shifting. Sitting: Completed sitting for 30 mins in session with ability to complete longer sitting tasks. Can complete sitting tasks frequently. Climbing Stairs: Completed ten stairs with alternating foot pattern with cues and need for assistance with handrail. She exhibits mechanical compensations of increased use of bilateral upper extremities to complete movements. Floor Lift: Heart rate prior to beginning with use of pulse oximeter: 124 bpm. Occasional Liftin x 15 lbs. Frequent liftinx 7 lbs. Completed with fair body mechanics. Increased mechanical compensation observed. Decreased spinal alignment with increased shortness of breath. Increase in heart rate from exertion and some pain. Was giving good effort and increased perspiration was observed. Heart rate posttest with use of pulse oximeter: 137 bpm. Perceived pain: 5/10 Knee Lift: Heart rate prior to beginning with use of pulse oximeter: 137 bpm. Maximum weight: 1x 20 lbs. Occasional Liftinx 15 lbs. Frequent liftinx 7.5 lbs. Completed with [employer]. Increased mechanical compensation observed with decreased ergonomics. Decreased spinal alignment with increased shortness of breath. Heart rate not reflective of pain. Increased exertion noted with perspiration and shortness of breath. General debility noted. Heart rate posttest with use of pulse oximeter: 141 bpm. Perceived pain: 6/10 Waist Lift: Heart rate prior to beginning with use of pulse oximeter: 142 bpm. Occasional Liftinx 20 lbs. Frequent liftinx 10 lbs. Completed with [employer]. Increased mechanical compensation observed with decreased ergonomics. Decreased spinal alignment with increased anterior pelvic tilt with increased shortness of breath. Heart rate not reflective of pain. Consistency of effort not reliable based on heart rate. Perspiration observed. General debility noted. Heart rate posttest with use of pulse oximeter: 94 bpm. Perceived pain:6/10 Shoulder Lift: Heart rate prior to beginning with use of pulse oximeter: 136 bpm. Maximum weight: 1x 20 lbs. Occasional Liftinx 15 lbs. Frequent liftinx 10 lbs. Completed with [employer]. Increased mechanical compensation observed with decreased ergonomics. Decreased spinal alignment with increased trunk extension for placement of load. Equal weightbearing into bilateral upper and lower extremities. Heart rate not reflective of pain. Increased exertion behaviors noted with perspiration and shortness of breath but heart rate not reflective. General debility noted. Heart rate posttest with use of pulse oximeter: 129 bpm. Perceived pain: 6/10 Overhead Lift: Heart rate prior to beginning with use of pulse oximeter: 136 bpm. Maximum weight: 1x 20 lbs. Occasional Liftinx 15 lbs. Frequent liftinx 10 lbs. Completed with [employer]. Increased mechanical compensation observed with decreased ergonomics. Decreased spinal alignment with increased trunk extension for placement of load. Equal weightbearing into bilateral upper and lower extremities but compensations observed with end range of load placement. Increased exertion behaviors noted with perspiration and shortness of breath and reflective with heart rate. Heart rate posttest with use of pulse oximeter: 143 bpm. Perceived pain: 6/10. Oxygen at room saturation: 96% Carrying: Heart rate prior to beginning with use of pulse oximeter: 137 bpm. Occasional Liftinx 15 lbs. Frequent liftinx 10 lbs. Completed with fair body mechanics. Increased mechanical compensation observed with decreased ergonomics. Decreased spinal alignment with increased trunk extension and load shifting from side to side during tasks. Completed task without assistive device and no loss of balance. Equal weightbearing into bilateral upper and lower extremities but compensations observed with end range of load placement. Increased exertion behaviors noted with perspiration and shortness of breath. Heart rate posttest with use of pulse oximeter: 143 bpm. Perceived pain: 5-6/10 Comments: Completed [place] Cognitive Assessment (MoCA) for cognitive screen and resaults as indicated: which indicates cognitive impairment but complete 10th grade education only. Day 2 ending diagnostics: - blood pressure wrist cuff: 115/78. - heart rate with use of pulse oximeter: 119 bpm. - oxygen ast room saturation: 91%. Dora consistently showed self-limiting behaviors. She often needed encouragement to complete task and then was cooperative. She exhibits shortness of breath and general debility and frequently protects left knee. Heart rate would increase but often was not reflective of increased pain or exertion at times (see above for further descriptions) and oxygen at room air was consistently above 90% at room air with physical exertion. She likely to complete more tasks with further endurance related training as noted she often ?doesn?t do much as home? and further explained she did not seek physical therapy post operation.
== END 2019-09-12 19:00 | disposition home or self-care (01) ==
LOC: OT 14:00
PROVIDERS: PCP Internal Medicine; Referring Provider Nurse Practitioner Family; Visit Provider Nurse Practitioner Family
DX: J44.9 Chronic obstructive pulmonary disease, unspecified (principal)
CPT/HCPCS: 97750

== ENCOUNTER → 2019-10-20 17:01 | Outpatient (CLI) | payer MEDICAID, SELFPAY ==
[2019-10-20 16:15] VITALS: BMI 49.8
[2019-10-20 17:08] LABS: Absolute Lymphocyte Count 2.17 X10^3/uL (0.83-4.51); Absolute Neutrophil Count 5.1 X10^3/uL (2.0-7.7); Basophil# 0.05 X10^3/uL; Basophil% 0.6 % (0-1); Eosinophil# 0.24 X10^3/uL; Eosinophils% 2.9 % (0-5); Hematocrit 42.5 % (37-47); Lymphocyte # 2.17 X10^3/ul (4.0); Lymphocyte % 25.8 % (19-41); Mean Corp Hgb Conc 30.6 g/dL (32-36); Mean Corpuscular Hgb 25.4 pg (27.0-32.0); Mean Corpuscular Volume 83.2 fL (81-99); Mean Platelet Vol. 9.8 fl (6.2-12.0); Monocyte# 0.82 X10^3/uL; Monocyte% 9.7 % (0-10); NRBC Flagged by Analyzer 0 % (0-5); Neutrophil # 5.12 X10^3/uL (2.7-7.7); Neutrophil % 60.8 % (47-70); Platelet Count 380 K/mm3 (150-450); RBC Distribution Width CV 14.6 % (11.6-14.6); RBC Distribution Width SD 43.8 fl (35.1-43.9); Red Blood Count 5.11 M/mm3 (4.2-5.4); White Blood Count 8.4 K/mm3 (4.4-11.0)
[2019-10-20 17:47] LABS: T4 Free Direct 2.16 ng/dL (0.76-1.46); Thyroid Stim Hormone (TSH) < 0.01 uIU/mL (0.358-3.74)
== END ==
PROVIDERS: PCP Internal Medicine; Visit Provider Nurse Practitioner Family
DX: E03.9 Hypothyroidism, unspecified (principal); J44.1 Chronic obstructive pulmonary disease with (acute) exacerbation
CPT/HCPCS: 84439; 84443; 85025

== ENCOUNTER → 2019-11-08 12:07 | Outpatient (CLI) | payer MEDICAID, SELFPAY ==
[2019-11-08 08:24] VITALS: BMI 51.1
--- NOTE | 2019-11-08 12:15 | RAD_ITS ---
STUDY: X-RAY CHEST REASON FOR EXAM: Female, 53 years old. Cough for a couple of months and sob TECHNIQUE: PA and lateral views of the chest. COMPARISON: Comparison is made with prior examination dated April 02, 2012. FINDINGS: Mild degree of increased markings at the lung bases suggestive of bibasilar atelectasis. There is no demonstrated pleural abnormality. Normal size heart. Normal mediastinum and alfie. Normal visualized pulmonary arteries. Normal visualized aortic arch and descending thoracic aorta. There are mild degenerative changes of the visualized thoracic spine. Normal visualized ribs, clavicles, and shoulders. There is no demonstrated abnormality of the visualized soft tissue structures of the upper abdomen. RAD/Chest PA and Lateral IMPRESSION: Mild increased markings at the lung bases suggestive of bibasilar atelectasis. Electronically Signed: Valentin Chand, at 12:41 EDT , Service support ,
== END ==
PROVIDERS: PCP Internal Medicine; Referring Provider Nurse Practitioner Family; Visit Provider Nurse Practitioner Family
DX: Z20.828 Contact with and (suspected) exposure to other viral communicable diseases (principal); J02.9 Acute pharyngitis, unspecified; R06.00 Dyspnea, unspecified; R05 Cough
CPT/HCPCS: 71046; 87635; G2023; U0004

== ENCOUNTER → 2019-11-11 11:40 | Outpatient (CLI) | payer MEDICAID, SELFPAY ==
[2019-11-11 11:36] VITALS: BMI 49.8
--- NOTE | 2019-11-11 11:41 | RAD_ITS ---
STUDY: X-RAY - LEFT KNEE REASON FOR EXAM: Female, 53 years old. KNEE PAIN TECHNIQUE: 4 view(s) of the knee. COMPARISON: Comparison is made with prior examination dated June 10, 2018. FINDINGS: Normal visualized distal femur. Normal visualized proximal tibia and fibula. Normal proximal tibiofibular articulation. There is moderate degenerative arthrosis of the medial femorotibial compartment with moderate joint space narrowing. Normal lateral femorotibial compartment. Normal patellofemoral articulation. Joint effusion. RAD/Knee 4 or More Views IMPRESSION: Degenerative arthrosis. Joint effusion. Electronically Signed: Valentin Chand, at 12:29 EDT , Service support ,
== END ==
PROVIDERS: PCP Internal Medicine; Referring Provider Orthopaedic Surgery; Visit Provider Orthopaedic Surgery
DX: M25.562 Pain in left knee (principal)
CPT/HCPCS: 73564

== ENCOUNTER → 2019-11-17 14:09 | Outpatient (CLI) | payer MEDICAID, SELFPAY ==
[2019-11-17 12:27] VITALS: BMI 52.0
== END ==
PROVIDERS: PCP Internal Medicine; Referring Provider Nurse Practitioner Acute Care; Visit Provider Nurse Practitioner Acute Care
DX: J44.9 Chronic obstructive pulmonary disease, unspecified (principal)
CPT/HCPCS: 87070; 87077; 87186; 87205

== ENCOUNTER → 2019-11-21 10:43 | Outpatient (CLI) | payer MEDICAID, SELFPAY ==
[2019-11-17 12:27] VITALS: BMI 52.0
[2019-11-21 11:10] LABS: Absolute Lymphocyte Count 2.15 X10^3/uL (0.83-4.51); Absolute Neutrophil Count 3.7 X10^3/uL (2.0-7.7); Basophil# 0.05 X10^3/uL; Basophil% 0.8 % (0-1); Eosinophil# 0.18 X10^3/uL; Eosinophils% 2.7 % (0-5); Hematocrit 41.8 % (37-47); Hemoglobin 12.9 g/dL (12.0-15.0); Lymphocyte # 2.15 X10^3/ul (4.0); Lymphocyte % 32.4 % (19-41); Mean Corp Hgb Conc 30.9 g/dL (32-36); Mean Corpuscular Hgb 25.5 pg (27.0-32.0); Mean Corpuscular Volume 82.8 fL (81-99); Mean Platelet Vol. 8.9 fl (6.2-12.0); Monocyte# 0.57 X10^3/uL; Monocyte% 8.6 % (0-10); NRBC Flagged by Analyzer 0 % (0-5); Neutrophil # 3.66 X10^3/uL (2.7-7.7); Neutrophil % 55.2 % (47-70); Platelet Count 369 K/mm3 (150-450); RBC Distribution Width CV 15.9 % (11.6-14.6); RBC Distribution Width SD 47.5 fl (35.1-43.9); Red Blood Count 5.05 M/mm3 (4.2-5.4); White Blood Count 6.6 K/mm3 (4.4-11.0)
[2019-11-21 11:26] LABS: Hemoglobin A1c 6.1 % (4.2-6.3)
[2019-11-21 11:31] LABS: Anion Gap 5 (5-15); BUN 11 mg/dL (7-18); BUN/Creat Ratio 16.4 RATIO (10-20); Calcium,Total 8.8 mg/dL (8.5-10.1); Chloride 102 mmol/L (98-107); Creatinine, Serum 0.67 mg/dL (0.55-1.02); EST Glomerular Filtration Rate 98 mL/min (>60); Est Glom Filt Rate - Afr Amer 119 mL/min (>60); Glucose 101 mg/dL (74-106); Potassium 3.7 mmol/L (3.5-5.1); Sodium Level 138 mmol/L (136-145); Thyroid Stim Hormone (TSH) 0.01 uIU/mL (0.358-3.74)
[2019-11-21 16:11] LABS: T4 Free Direct 1.98 ng/dL (0.76-1.46)
[2019-11-23 20:07] LABS: Alternaria alternata <0.10 kU/L (Class 0); Bermuda Grass <0.10 kU/L (Class 0); Bluegrass, Kentucky <0.10 kU/L (Class 0); Cat Hair/Dander, Standard <0.10 kU/L (Class 0); D farinae Mite <0.10 kU/L (Class 0); D pteronyssinus <0.10 kU/L (Class 0); Dog Epithelia <0.10 kU/L (Class 0); Elm, American White <0.10 kU/L (Class 0); Oak, White <0.10 kU/L (Class 0); Plantain, English <0.10 kU/L (Class 0); Ragweed, Short/Common <0.10 kU/L (Class 0)
[2019-11-24 00:39] LABS: Mouse Urine <0.10 kU/L (Class 0)
[2019-11-25 03:07] LABS: Aspirgillus flavus Negative (Neg:<1:1); Aspirgillus fumigatus Negative (Neg:<1:1); Aspirgillus niger Negative (Neg:<1:1)
[2019-11-25 03:40] LABS: Immunoglobulin E 7 IU/mL (6-495)
== END ==
PROVIDERS: Nurse Practitioner Family; PCP Internal Medicine; Referring Provider Nurse Practitioner Acute Care; Visit Provider Nurse Practitioner Acute Care
DX: J44.9 Chronic obstructive pulmonary disease, unspecified (principal); E03.9 Hypothyroidism, unspecified
CPT/HCPCS: 36415; 80048; 82785; 83036; 84439; 84443; 85025; 86003; 86606

== ENCOUNTER → 2020-01-10 12:58 | Outpatient (CLI) | payer MEDICAID, SELFPAY ==
[2019-12-15 09:29] VITALS: BMI 52.0
--- NOTE | 2020-01-10 13:00 | ECHOCS_ITS ---
Reason For Study: DYSPNEA/SOB Procedure This was a 2D Doppler, Color Flow transthoracic echocardiogram. The study was technically difficult. Due to body habitus. Contrast injection was performed. Exam performed in department. Left Ventricle Normal LV size. Left ventricular systolic function is normal. The estimated ejection fraction is 65 %. No evidence for diastolic dysfunction. No regional wall motion abnormalities noted. Right Ventricle Normal RV size. Normal systolic function. Atria The left atrium is mildly enlarged. Normal right atrium. No doppler evidence for ASD. Mitral Valve There is no mitral annular calcification. Normal mitral valve. Trivial mitral valve insufficiency. Tricuspid Valve Normal tricuspid valve. Trivial tricuspid valve insufficiency. Unable to estimate RV systolic pressure/pulmonary artery pressure due to technically difficult study. Aortic Valve Trisinus/trileaflet aortic valve. Normal aortic valve. Pulmonic Valve The pulmonic valve is not well visualized. Trivial pulmonic valve insufficiency. Great Vessels Normal sized aortic root. Pericardium/Pleural No pericardial effusion. Medication 22 gauge I.V. with prn adaptor inserted into left arm. Diluted definity 2.0ml given slow IV push to enhance endocardial definition. MMode/2D Measurements & Calculations Ao root diam: 3.7 cm LAV(MOD-bp): 66.7 ml LA A4 area: 21.9 cm2 LAV(MOD-bp) Indexed: 28.6 ml/m2 LAV(MOD-sp2): 65.1 ml LAV(MOD-sp4): 68.7 ml LA dimension(2D): 3.4 cm RA A4 area: 14.9 cm2 Time Measurements MV dec time: 0.20 sec Doppler Measurements & Calculations MV E max wisam: 87.2 cm/sec Lat Peak E' Wisam: 9.7 cm/sec Med Peak E' Wisam: 9.0 cm/sec MV A max wisam: 87.4 cm/sec E/E' lat: 9.0 E/E' med: 9.7 MV E/A: 1.00 Ao V2 max: 160.7 cm/sec LV V1 max: 159.4 cm/sec PA V2 max: 105.4 cm/sec Ao max P.3 mmHg LV V1 max P.2 mmHg Interpretation Summary The study was technically difficult. Contrast injection was performed. Left ventricular systolic function is normal. The estimated ejection fraction is 65 %. The left atrium is mildly enlarged. Trivial mitral valve insufficiency. Trivial tricuspid valve insufficiency. Trivial pulmonic valve insufficiency. Unable to estimate RV systolic pressure/pulmonary artery pressure due to technically difficult study. No evidence for diastolic dysfunction. Ordering Physician: James Roca Referring Physician: James Roca Performed By: Marla Michael, JOLIE, RVT
[2020-01-10 15:27] LABS: Thyroid Stim Hormone (TSH) 0.57 uIU/mL (0.358-3.74)
== END ==
PROVIDERS: PCP Internal Medicine; Referring Provider Nurse Practitioner Family; Visit Provider Nurse Practitioner Family
DX: E03.9 Hypothyroidism, unspecified (principal); R06.00 Dyspnea, unspecified; R60.0 Localized edema
CPT/HCPCS: 36415; 84443; 93306; Q9957; A4216; C8929

== ENCOUNTER → 2020-01-25 10:12 | Outpatient (CLI) | payer MEDICAID, SELFPAY ==
[2020-01-25 09:51] VITALS: BMI 52.0
[2020-01-25 12:43] LABS: Absolute Lymphocyte Count 2.02 X10^3/uL (0.83-4.51); Absolute Neutrophil Count 4.5 X10^3/uL (2.0-7.7); Basophil# 0.05 X10^3/uL; Basophil% 0.7 % (0-1); Eosinophil# 0.13 X10^3/uL; Eosinophils% 1.8 % (0-5); Hematocrit 43.6 % (37-47); Hemoglobin 13.3 g/dL (12.0-15.0); Lymphocyte # 2.02 X10^3/ul (4.0); Lymphocyte % 27.5 % (19-41); Mean Corp Hgb Conc 30.5 g/dL (32-36); Mean Corpuscular Hgb 26.4 pg (27.0-32.0); Mean Corpuscular Volume 86.7 fL (81-99); Mean Platelet Vol. 9.4 fl (6.2-12.0); Monocyte# 0.59 X10^3/uL; NRBC Flagged by Analyzer 0 % (0-5); Neutrophil # 4.54 X10^3/uL (2.7-7.7); Neutrophil % 61.9 % (47-70); Platelet Count 326 K/mm3 (150-450); RBC Distribution Width CV 18.4 % (11.6-14.6); RBC Distribution Width SD 54.3 fl (35.1-43.9); Red Blood Count 5.03 M/mm3 (4.2-5.4); White Blood Count 7.3 K/mm3 (4.4-11.0)
[2020-01-25 13:01] LABS: ALB/GLOB Ratio 0.7 RATIO (0.9-2.4); AST(SGOT) 19 U/L (15-37); Alanine Aminotransfer ALT/SGPT 24 U/L (13-56); Albumin, Serum 3.4 g/dL (3.2-5.0); Alkaline Phosphatase 150 U/L (45-117); Anion Gap 4 (5-15); BUN 7 mg/dL (7-18); BUN/Creat Ratio 10.3 RATIO (10-20); Calcium,Total 9.1 mg/dL (8.5-10.1); Chloride 102 mmol/L (98-107); Creatinine, Serum 0.68 mg/dL (0.55-1.02); EST Glomerular Filtration Rate 97 mL/min (>60); Est Glom Filt Rate - Afr Amer 117 mL/min (>60); Globulin 4.8 g/dL (2.2-4.2); Glucose 103 mg/dL (74-106); Potassium 3.6 mmol/L (3.5-5.1); Protein, Total 8.2 g/dL (6.4-8.2); Sodium Level 138 mmol/L (136-145)
== END ==
PROVIDERS: PCP Internal Medicine; Referring Provider Internal Medicine; Visit Provider Internal Medicine
DX: R10.9 Unspecified abdominal pain (principal)
CPT/HCPCS: 36415; 80053; 85025

== ENCOUNTER → 2020-02-07 20:35 | Outpatient (CLI) | payer MEDICAID, SELFPAY ==
[2019-12-01 11:20] VITALS: BMI 52.0
[2020-01-25 09:51] VITALS: BMI 52.0
== END ==
PROVIDERS: PCP Internal Medicine; Referring Provider Nurse Practitioner Acute Care; Visit Provider Nurse Practitioner Acute Care
DX: G47.33 Obstructive sleep apnea (adult) (pediatric) (principal)
CPT/HCPCS: 95811

== ENCOUNTER → 2020-02-16 14:34 | Outpatient (CLI) | payer MEDICAID, SELFPAY ==
[2020-01-25 09:51] VITALS: BMI 52.0
== END ==
PROVIDERS: PCP Internal Medicine; Visit Provider Nurse Practitioner Acute Care
DX: Z46.89 Encounter for fitting and adjustment of other specified devices (principal)

== ENCOUNTER → 2020-02-21 09:45 | Outpatient (CLI) | payer MEDICAID, SELFPAY ==
[2020-01-25 09:51] VITALS: BMI 52.0
== END ==
PROVIDERS: PCP Internal Medicine; Visit Provider Nurse Practitioner Acute Care
DX: Z46.89 Encounter for fitting and adjustment of other specified devices (principal)

== ENCOUNTER → 2020-03-20 10:20 | Outpatient (CLI) | payer MEDICAID, SELFPAY ==
[2020-02-24 16:33] VITALS: BMI 52.0
== END ==
PROVIDERS: PCP Internal Medicine; Visit Provider Nurse Practitioner Acute Care
DX: Z00.00 Encounter for general adult medical examination without abnormal findings (principal)

== ENCOUNTER → 2020-04-11 15:33 | Outpatient (CLI) | payer MEDICAID, SELFPAY ==
[2020-04-11 15:00] VITALS: BMI 52.0
[2020-04-11 17:11] LABS: Anion Gap 5 (5-15); BUN 11 mg/dL (7-18); BUN/Creat Ratio 12.5 RATIO (10-20); Calcium,Total 9.1 mg/dL (8.5-10.1); Chloride 98 mmol/L (98-107); Creatinine, Serum 0.88 mg/dL (0.55-1.02); EST Glomerular Filtration Rate 72 mL/min (>60); Est Glom Filt Rate - Afr Amer 87 mL/min (>60); Glucose 89 mg/dL (74-106); Potassium 4.1 mmol/L (3.5-5.1); Sodium Level 137 mmol/L (136-145); Thyroid Stim Hormone (TSH) 0.01 uIU/mL (0.358-3.74)
== END ==
PROVIDERS: PCP Internal Medicine; Referring Provider Internal Medicine; Visit Provider Internal Medicine
DX: I10 Essential (primary) hypertension (principal); E03.9 Hypothyroidism, unspecified
CPT/HCPCS: 36415; 80048; 84443

== ENCOUNTER → 2020-05-09 12:30 | Outpatient (CLI) | payer MEDICAID, SELFPAY ==
[2020-04-11 15:00] VITALS: BMI 52.0
--- NOTE | 2020-05-09 12:32 | BI_ITS ---
MAMMOGRAPHY - BILATERAL SCREENING REASON FOR EXAM: Female, 54 years old. Routine annual screening examination. PERTINENT HISTORY: Non-contributory. TECHNIQUE: Digital bilateral breast jorge (3D mammographic acquisition) in the CC and MLO projections. 2-D mediolateral oblique (MLO) and craniocaudad (CC) views of both breasts were obtained. CAD: Full Field Digital Mammography with Computer Added Detection was performed. COMPARISON: No comparison mammograms available at this time. If any prior films become available, an addendum to this report can be generated. FINDINGS: Breast Composition: The breasts are almost entirely fatty. There are no dominant masses or suspicious calcifications. Small benign appearing bilateral axillary lymph nodes. No other significant abnormalities are identified. BI/SCREEN MAMM (CAD) W/JORGE BILAT IMPRESSION: Negative screening mammogram. Yearly followup mammogram recommended. (A) ASSESSMENT CATEGORY: BIRADS Category 2: Benign. A letter regarding these results will be sent to the patient by the facility within 30 days. Approximately 10% of breast cancers are not detected by mammography. A normal mammogram should not delay biopsy of a clinically suspicious abnormality. [id number] Electronically Signed: Valentin Chand, at 8:05 EST , Service support ,
== END ==
PROVIDERS: PCP Internal Medicine; Referring Provider Internal Medicine; Visit Provider Internal Medicine
DX: Z12.31 Encounter for screening mammogram for malignant neoplasm of breast (principal)
CPT/HCPCS: 77063; 77067

== ENCOUNTER 2020-06-06 10:02 | Day surgery (SDC) | payer MEDICAID, SELFPAY ==
[2020-05-17 13:49] VITALS: BMI 52.8
[2020-05-29 08:36] VITALS: BMI 53.5
--- NOTE | 2020-06-06 03:04 | HP_ITS ---
Intake Vital Signs 05/17/20 Height 5 ft 4 in 05/17/20 Weight: 308 lb 05/17/20 BP 123/85 H 05/17/20 Blood Pressure Location Rt brachial 05/17/20 Position Sitting 05/17/20 Respiration 18 Intake Visit Reasons: C-Scope Abdominal Pain Chief Complaint: c-scope Assisted Living Home Director Required: No Is patient in pain?: Yes (abdominal pain) Allergies Penicillins Allergy (Unknown, Verified 05/17/20 13:46) Unknown Sulfa (Sulfonamide Antibiotics) Allergy (Unknown, Verified 05/17/20 13:46) Unknown Medications amlodipine 10 mg tablet 10 mg PO DAILY #90 tab 05/16/19 [Rx Confirmed 05/17/20] albuterol sulfate 2.5 mg INHALATION Q4H PRN #180 ml 07/14/19 [Rx Confirmed 05/17/20] fluticasone fur. 100 mcg-umeclid 62.5 mcg-vilant 25 mcg inhalat.powder 1 inh INHALATION Q24H #60 ea 08/26/19 [Rx Confirmed 05/17/20] fluticasone propionate 50 mcg/actuation nasal spray,suspension 2 spray INTRANASAL DAILY #15.8 g 11/08/19 [Rx Confirmed 05/17/20] ipratropium 0.5 mg-albuterol 3 mg (2.5 mg base)/3 mL nebulization soln 3 ml INHALATION Q4H PRN #90 ml 11/08/19 [Rx Confirmed 05/17/20] Lactobacillus rhamnosus GG 15 billion cell sprinkle capsule 1 cap PO DAILY #90 cap 11/15/19 [Rx Confirmed 05/17/20] albuterol sulfate 90 mcg/actuation aerosol inhaler 1 - 2 puff INHALATION Q6H PRN #18 g 11/17/19 [Rx Confirmed 05/17/20] montelukast 10 mg tablet 10 mg PO QPM #90 tab 12/01/19 [Rx Confirmed 05/17/20] loratadine 10 mg capsule 10 mg PO QDAY #90 cap 12/02/19 [Rx Confirmed 05/17/20] escitalopram oxalate 10 mg tablet 10 mg PO DAILY #90 tab 12/13/19 [Rx Confirmed 05/17/20] compress.stocking,knee,reg,lrg See Rx Instructions .ROUTE .MEDSUPPLY #2 ea 12/15/19 [Rx Confirmed 05/17/20] pravastatin 40 mg tablet 40 mg PO DAILY #90 tab 01/05/20 [Rx Confirmed 05/17/20] celecoxib 200 mg capsule 200 mg PO DAILY #30 cap 01/25/20 [Rx Confirmed 05/17/20] pantoprazole 40 mg tablet,delayed release 40 mg PO BID #90 tab 01/25/20 [Rx Confirmed 05/17/20] Bariatric shower chair #1 ea 02/24/20 [Rx Confirmed 05/17/20] hydrochlorothiazide 12.5 mg tablet 12.5 mg PO QAM #90 tab 02/24/20 [Rx Confirmed 05/17/20] ibuprofen 600 mg tablet 600 mg PO BID PRN #60 tab 03/06/20 [Rx Confirmed 05/17/20] piper.hdg-avfqtoihwb-kvugjzvpn 4 %-0.33 %-0.5 % topical kit See Rx Instructions TOPICAL .COMPLEX #5 ea 03/21/20 [Rx Confirmed 05/17/20] levothyroxine 100 mcg tablet 100 mcg PO DAILY #60 tab 04/13/20 [Rx Confirmed 05/17/20] levothyroxine 125 mcg tablet 125 mcg PO DAILY #60 tab 04/13/20 [Rx Confirmed 05/17/20] PFSH Medical History Acute otitis externa (Acute) Microscopic hematuria (Acute) Chronic back pain (Chronic) Epigastric pain (Acute) UTI (urinary tract infection) (Resolved) Fatigue (Chronic) Hypertension (Chronic) Migraines (Chronic) Arthritis (Chronic) Anemia (Chronic) Environmental allergies (Chronic) Hyperlipidemia (Chronic) Morbid obesity (Chronic) GERD (gastroesophageal reflux disease) (Chronic) Depression with anxiety (Chronic) Bilateral lower extremity edema (Chronic) Hypothyroidism (Chronic) COPD (chronic obstructive pulmonary disease) (Chronic) Continuous tobacco abuse (Chronic) Sleep-related breathing disorder (Chronic) Surgical History H/O left knee surgery (Resolved) Hx of tubal ligation (Resolved) S/P removal of ovarian cyst (Resolved) S/P thyroid biopsy (Resolved) Family History Mother Depression Stomach cancer COPD (chronic obstructive pulmonary disease) Asthma Hypertension Thyroid disorder Father Heart disease Myocardial infarction Hypertension COPD (chronic obstructive pulmonary disease) CVA (cerebral vascular accident) Diabetes Lupus Daughter Asthma Heart disease Thyroid disorder Daughter Asthma Depression Social History (Updated 05/17/20 @ 14:[address] Lisa Mercado MD) second hand exposure: Yes alcohol intake: never substance use type: does not use what type of physical activity do you participate in: none HPI HPI HPI: MARY AVILA, is a 54 F who presents to the office today for HPI HPI Surgical H&P: Yes HPI: MARY AVILA, is a 54 F who presents to the office today for colonoscopy and EGD. Patient states for about a year she has had epigastric pain with eating. However with further questioning she states she has pain even without eating like today she has not eaten yet and the pain is a 8-07/07/09. Patient also states that she has pain immediately after eating and also has increased belching. Patient admits to history of reflux with symptomatic esophageal burning sensation however that has been controlled patient has been on Protonix 40 mg p.o. twice daily for 1 year. Patient denies having previous colonoscopy or EGD. Patient denies any family history of colon cancer. Patient states she has bowel movements daily which are soft denies any blood but states that she has hemorrhoids denies any pain with bowel movements. Patient also denies any nausea or vomiting. Due to the patient's abdominal pain she has been eating less as she states when she eats and gets full the pain can be worse. ROS General General: Yes weight change; no appetite, fatigue, colon cancer, breast cancer or weakness HEENT HEENT: Yes difficulty swallowing; no eye injury, eye surgery, swollen glands or hoarseness Endo Endocrine: Yes thyroid disease; no diabetes mellitus, thyroid cancer, Hair loss, heat intolerance or cold intolerance Skin Skin: No rash or changing moles Breast Breast: No left breast lump, right breast lump, nipple discharge, breast pain, abnormal mammogram, abnormal US or breast enlargement Musc Musculoskeletal: Yes back problems, arthritis and rheumatoid arthritis; no gout or joint pain Cardio Cardiovascular: Yes high blood pressure; no pacemaker, heart disease, atrial fibrillation, heart attack, heart stent, palpitations, shortness of breat with exertion or chest pain Psych Psychiatric: Yes depression and anxiety; no hearing voices Resp Respiratory: Yes shortness of breath, Yes sleep apnea, Yes cough, Yes COPD, Yes asthma, Yes emphysema, Yes wheezing Gastro Gastrointestinal: Yes abdominal pain, No nausea or vomiting, No diarrhea, No constipation, No blood in stool, Yes acid reflux, Yes hemorrhoids, Yes ulcers, No gallbladder problem, No black,tarry stools Karri Hematologic: No blood thinners, No blood disorders, No bleeding, No anemia, No blood clots Neuro Neurologic: No system reviewed and no additional complaints, except as docu, No as per HPI, No abnormal walking, No abnormal hearing, No abnormal movements, No abnormal speech, No behavioral changes, No burning sensations, No confusion, No seizure-like activity, No unsteadiness, No dizziness, No localized weakness, No frequent falls, No headache(s), No lack of coordination, No loss of vision, No memory loss, No numbness, No other visual disturbances, No radiating pain, No restless legs, No sensory deficit, No fainting, No tingling, No tremor(s), No weakness, No other Exam Const General: cooperative, comfortable, well developed Nutritional Appearance: obese Chest Breast Palpation: No nipple discharge Resp Effort & Inspection: normal respiratory effort Cardio Rate: regular rate GI Inspection: non-distended Palpation: soft, no guarding, tender (Epigastric and left upper quadrant, no peritoneal signs) Assessment & Plan Problems 1. Epigastric pain R10.13 2. Burping R14.2 3. Encounter for screening for malignant neoplasm of colon Z12.11 Plan Patient's epigastric pain and belching does seem to be consistent with gastric etiology however patient is already on Protonix 40 mg p.o. daily for the last year. Patient previously had burning of her esophagus for reflux which that has been controlled with the Protonix. We will plan to get H. pylori biopsy during EGD. I have discussed the above with the patient. I have offered the patient EGD and colonoscopy for evaluation. I have explained the risks/benefits of the procedure and described the procedure. I have discussed the risks with the patient, including but not limited to: infection, bleeding, perforation of the GI tract requiring emergency surgery, inability to complete the procedure, injury to any internal organs, complications of anesthesia, etc. - the patient understands and agrees to proceed. I have answered all the patient's questions to the patient's satisfaction and the patient has no further questions. The patient has been given instructions for the colon cleansing preparation. 1 day of clears, MiraLAX Dulcolax split prep. Lisa Mercado M.D. Pager: [phone] [facility] [address] [place] [address], [facility], [address] [place] [address] Office: [phone] Orders Orders: Colonoscopy Today EGD Today Plan Detail Goals Decrease pain and spasm Decrease inflammation Barriers Obesity Follow Up We will schedule EGD and colonoscopy patient requested June 06 Coding Level of Care Code Off vis,new,level 3 Diagnoses Epigastric pain R10.13 Burping R14.2 Encounter for screening for malignant neoplasm of colon Z12.11 COVID (Procedure Consent) Procedure Criteria Procedure Criteria: Yes Elective The surgeon/proceduralist and patient have discussed in detail the risk of exposure to and/or potential harm posed by the COVID-19 virus with having a surgery/procedure at this time versus the risk of? delaying the surgery/procedure. It is not possible to know either the risk of delaying the surgery or procedure or chance of getting an infection with perfect accuracy, but a joint decision was made between the patient and the surgeon/proceduralist ?to proceed at this time with the scheduled surgery/procedure as indicated on the consent form. I have re-examined the patient. There are no clinical changes since date of exam.
[2020-06-06 10:30] VITALS: BP 129/79; PULSE 93; RESP 18; TEMP 36.7; O2SAT 97; BMI 53.4
[2020-06-06] MEDS: Lactated Ringers 1,000 ML 100 ML IV (11:11)
--- NOTE | 2020-06-06 11:15 | EGD_PTH ---
PATIENT: MARY AVILA LOC: EN U#:[id number] AGE/SX: 54/F ROOM: RE06/06/[address]: Dr. Lisa Mercado MD : 1965 BED: DIS: 06/06/2020 SPEC #: [id number] RECD: 06/06/20 12:58 STATUS: MARIANNA REPinky #: [id number] LIZ: 06/06/20 11:[address]: Lisa Mercado DEPT: SURGICAL PATHOLOGY RECD BY: Shyanne Pappas ENTERED: 06/06/20 13:45 SP TYPE: EGD BIOPSY OTHR DR: Dr. Sarah Cleaning MD Tissues: A - Gastric mucous membrane B - Gastric mucous membrane C - Descending colon D - Rectum, NOS Procedures: Special Stain Group II Surgery Specimen Level IV Alcian Blue/PAS (control) HEADER OPERATION: Colonoscopy, EGD ([facility]) PRE-OP DIAGNOSIS: Epigastric pain, burping, screening TISSUE SUBMITTED: A - Prepyloric biopsy for H. pylori and pathology, B - GE junction biopsy, C - Proximal descending colon polyp biopsy, D - Rectal polyp MICROSCOPIC DIAGNOSIS A. Prepyloric gastric mucosa, biopsy: Chronic gastritis. See comment. B. Gastroesophageal junction, biopsy: Chronic inflammation. No evidence of goblet cell metaplasia. See comment. C. Proximal descending colon polyp, biopsy: Tubular adenoma. D. Rectal polyp, biopsy: Serrated adenoma. AM:[place] 06/07/20 COMMENT A. The results of immunohistochemistry for Helicobacter pylori will be reported separately ([id number]). B. Alcian blue/PAS stain with matched control supports the above diagnosis. Case has been reviewed in consultation with Dr. Liu who concurs with the above diagnosis. IDC:SJ MICROSCOPIC DESCRIPTION Slides are reviewed. GROSS DESCRIPTION A - Received in fixative is one container labeled with the patient's name and designated prepyloric biopsy. The specimen consists of multiple irregular fragments of light johnson soft tissue that in aggregate measure 0.6 x 0.5 x 0.1 cm. The specimen is totally submitted in one cassette. B - Received in fixative is one container labeled with the patient's name and designated GE junction biopsy. The specimen consists of two irregular fragments of light johnson soft tissue that in aggregate measure 0.6 x 0.5 x 0.1 cm. The specimen is totally submitted in one cassette. C - Received in fixative is one container labeled with the patient's name and designated proximal descending colon. The specimen consists of multiple irregular fragments of light johnson soft tissue that in aggregate measure 0.5 x 0.5 x 0.1 cm. The specimen is totally submitted in one cassette. D - Received in fixative is one container labeled with the patient's name and designated rectal polyp. The specimen consists of one irregular fragment of light johnson soft tissue that measures 0.7 x 0.5 x 0.4 cm. The specimen is bisected and totally submitted in one cassette. / AM:[place] 06/06/20 TC:5 CPT: 15506 x4, 98366
--- NOTE | 2020-06-06 11:15 | IMM_PTH ---
PATIENT: MARY AVILA LOC: EN U#:[id number] AGE/SX: 54/F ROOM: RE06/06/[address]: Dr. Lisa Mercado MD : 1965 BED: DIS: 06/06/2020 SPEC #: [id number] RECD: 06/06/20 14:45 STATUS: MARIANNA REQ #: [id number] LIZ: 06/06/20 11:[address]: Lisa Mercado DEPT: IMMUNOHISTOCHEMISTRY RECD BY: Rose Grimes ENTERED: 06/06/20 14:46 SP TYPE: IMMUNO OTHR DR: Dr. Sarah Cleaning MD Tissues: A - Pyloric antrum Procedures: H Pylori (initial) PHYSICIAN & INSTITUTION [place] [address] SPECIMEN INFORMATION: Tissue Source: A - Prepyloric biopsy Clinical Info: Epigastric pain, burping, screening Specimen Number: [id number] CPT code: 45008 METHODOLOGY: Deparaffinized sections of prefer/formalin-fixed tissue or PAP/DQ stained slides are incubated with monoclonal/polyclonal antibodies/oligonucleotide probes. Localization is made via biotin free immunoperoxidase method. Appropriate controls are performed and reacted as expected. Results on target cell population are indicated in the following table: RESULTS: ANTIBODY / CLONE RESULT Block A H Pylori (polyclonal) negative These tests were developed and their performance characteristics determined by [facility]. They may not have been cleared or approved by the U.S. Food and Drug Administration. The FDA has determined that such clearance or approval is not necessary. INTERPRETATION: A. Prepyloric biopsy: Negative for Helicobacter pylori organisms. AM:[place] 06/07/20
[2020-06-06 12:25] VITALS: BP 127/83; BP 129/79; PULSE 99; RESP 18; TEMP 36.3; O2SAT 95
--- NOTE | 2020-06-06 12:26 | OP.EGD_ITS ---
Patient Name: Dora Mckeon Procedure Date: 06/06/2020 11:36 AM Date of : 1965 Age: 54 Procedure: Upper GI endoscopy Indications: Epigastric abdominal pain, Esophageal reflux symptoms that persist despite appropriate therapy Providers: Lisa Mercado MD Referring MD: Lisa Mercado MD Medicines: Monitored Anesthesia Care Patient Profile: This is a 54 year old female. Complications: No immediate complications. Procedure: Pre-Anesthesia Assessment: - Prior to the procedure, a History and Physical was performed, and patient medications and allergies were reviewed. The patient's tolerance of previous anesthesia was also reviewed. The risks and benefits of the procedure and the sedation options and risks were discussed with the patient. All questions were answered, and informed consent was obtained. Prior Anticoagulants: The patient has taken no previous anticoagulant or antiplatelet agents. ASA Grade Assessment: Per anesthesia. After reviewing the risks and benefits, the patient was deemed in satisfactory condition to undergo the procedure. After obtaining informed consent, the endoscope was passed under direct vision. Throughout the procedure, the patient's blood pressure, pulse, and oxygen saturations were monitored continuously. The gastroscope was introduced through the mouth, and advanced to the second part of duodenum. The upper GI endoscopy was accomplished without difficulty. The patient tolerated the procedure well. Scope In: 11:43:21 AM Scope Out: 11:49:49 AM Total Procedure Duration Time 0 hours 6 minutes 28 seconds Findings: The Z-line was irregular and was found 38 cm from the incisors. Biopsies were taken with a cold forceps for histology. A small hiatal hernia was present. A few 5 mm mucosal papules (nodules) with no bleeding and no stigmata of recent bleeding were found in the prepyloric region of the stomach. Biopsies were taken with a cold forceps for histology. Biopsies were taken with a cold forceps for Helicobacter pylori cultures. The examined duodenum was normal. The exam was otherwise without abnormality. Impression: - Z-line irregular, 38 cm from the incisors. Biopsied. - Small hiatal hernia. - A few mucosal papules (nodules) found in the stomach. Biopsied. - Normal examined duodenum. - The examination was otherwise normal. Recommendation: - Await pathology results. - Discharge patient to home. - Resume previous diet. - Use Nexium (esomeprazole) 40 mg PO BID. - Use sucralfate tablets 1 gram PO QID. - Continue present medications. Procedure Code(s): --- Professional --- 44307, Esophagogastroduodenoscopy, flexible, transoral; with biopsy, single or multiple Diagnosis Code(s): --- Professional --- K22.8, Other specified diseases of esophagus K44.9, Diaphragmatic hernia without obstruction or gangrene K31.89, Other diseases of stomach and duodenum R10.13, Epigastric pain K21.9, Gastro-esophageal reflux disease without esophagitis CPT copyright 2017 [employer]. All rights reserved. The codes documented in this report are preliminary and upon headlight assembler review may be revised to meet current compliance requirements. MD Lisa Mcclure MD 06/06/2020 12:25:46 PM This report has been signed electronically. Number of Addenda: 0 Note Initiated On: 06/06/2020 11:36 AM
--- NOTE | 2020-06-06 12:26 | OP.CCLET_ITS ---
06/06/2020 Sarah Cleaning MD [address] [place] [address] [place] [address] Re : Upper GI endoscopy procedure for [facility] Dear Dr. Cleaning This procedure was performed on Saturday, June 06, 2020. My impressions and recommendations are as follows: Impressions : - Z-line irregular, 38 cm from the incisors. Biopsied. - Small hiatal hernia. - A few mucosal papules (nodules) found in the stomach. Biopsied. - Normal examined duodenum. - The examination was otherwise normal. Recommendations : - Await pathology results. - Discharge patient to home. - Resume previous diet. - Use Nexium (esomeprazole) 40 mg PO BID. - Use sucralfate tablets 1 gram PO QID. - Continue present medications. My findings are described in the full procedure note, which is enclosed. If I can be of further assistance, please feel free to contact me at Doctor phone number(s): , Work: . Sincerely, MD Lisa Mcclure MD 06/06/2020 12:25:46 PM This report has been signed electronically.
[2020-06-06 12:30] VITALS: BP 120/82; BP 129/79; PULSE 98; RESP 18; O2SAT 96
[2020-06-06 12:34] VITALS: BP 119/86; BP 129/79; PULSE 94; RESP 16; O2SAT 97
--- NOTE | 2020-06-06 12:34 | OP.COLON_ITS ---
Patient Name: Dora Mckeon Procedure Date: 06/06/2020 11:50 AM Date of : 1965 Age: 54 Procedure: Colonoscopy Indications: Screening for colorectal malignant neoplasm Providers: Lisa Mercado MD Referring MD: Lisa Mercado MD Medicines: Monitored Anesthesia Care Patient Profile: This is a 54 year old female. Last Colonoscopy: none. The patient's first colonoscopy is today. Complications: No immediate complications. Procedure: Pre-Anesthesia Assessment: - Prior to the procedure, a History and Physical was performed, and patient medications and allergies were reviewed. The patient's tolerance of previous anesthesia was also reviewed. The risks and benefits of the procedure and the sedation options and risks were discussed with the patient. All questions were answered, and informed consent was obtained. Prior Anticoagulants: The patient has taken no previous anticoagulant or antiplatelet agents. ASA Grade Assessment: Per anesthesia. After reviewing the risks and benefits, the patient was deemed in satisfactory condition to undergo the procedure. After I obtained informed consent, the scope was passed under direct vision. Throughout the procedure, the patient's blood pressure, pulse, and oxygen saturations were monitored continuously. The Colonoscope was introduced through the anus and advanced to the cecum, identified by the appendiceal orifice, ileocecal valve and palpation. The colonoscopy was somewhat difficult due to poor bowel prep with stool present. lavage was attempted; however too much fibrous debris, which clogged the scope. The patient tolerated the procedure well. The quality of the bowel preparation was poor. Scope In: 11:52:19 AM Scope Withdrawal Time 0 hours 14 minutes 8 seconds Scope Out: 12:17:15 PM Total Procedure Duration Time 0 hours 24 minutes 56 seconds Findings: The perianal and digital rectal examinations were normal. A 7 mm polyp was found in the rectum. The polyp was pedunculated. The polyp was removed with a hot snare. Resection and retrieval were complete. A less than 5 mm polyp was found in the descending colon. The polyp was sessile. The polyp was removed with a cold biopsy forceps. Resection and retrieval were complete. Poor prep unable to see majority of the colon well-- will need to repeat colonoscopy Impression: - Preparation of the colon was poor. - One 7 mm polyp in the rectum, removed with a hot snare. Resected and retrieved. - One less than 5 mm polyp in the descending colon, removed with a cold biopsy forceps. Resected and retrieved. Recommendation: - Discharge patient to home. - Resume previous diet. - Continue present medications. - Await pathology results. - Repeat colonoscopy at appointment to be scheduled because the bowel preparation was poor. Procedure Code(s): --- Professional --- 32292, PT, Colonoscopy, flexible; with removal of tumor(s), polyp(s), or other lesion(s) by snare technique 48603, 59, Colonoscopy, flexible; with biopsy, single or multiple Diagnosis Code(s): --- Professional --- Z12.11, Encounter for screening for malignant neoplasm of colon K62.1, Rectal polyp D12.4, Benign neoplasm of descending colon CPT copyright 2017 [employer]. All rights reserved. The codes documented in this report are preliminary and upon director emergency department review may be revised to meet current compliance requirements. MD Lisa Mcclure MD 06/06/2020 12:33:47 PM This report has been signed electronically. Number of Addenda: 0 Note Initiated On: 06/06/2020 11:50 AM
--- NOTE | 2020-06-06 12:34 | OP.CCLET_ITS ---
06/06/2020 Sarah Cleaning MD [address] [place] [address] [place] [address] Re : Colonoscopy procedure for Dora Mckeon Dear Dr. Cleaning This procedure was performed on Saturday, June 06, 2020. My impressions and recommendations are as follows: Impressions : - Preparation of the colon was poor. - One 7 mm polyp in the rectum, removed with a hot snare. Resected and retrieved. - One less than 5 mm polyp in the descending colon, removed with a cold biopsy forceps. Resected and retrieved. Recommendations : - Discharge patient to home. - Resume previous diet. - Continue present medications. - Await pathology results. - Repeat colonoscopy at appointment to be scheduled because the bowel preparation was poor. My findings are described in the full procedure note, which is enclosed. If I can be of further assistance, please feel free to contact me at Doctor phone number(s): , Work: . Sincerely, MD Lisa Mcclure MD 06/06/2020 12:33:47 PM This report has been signed electronically.
[2020-06-06 12:40] VITALS: BP 114/62; BP 129/79; PULSE 99; RESP 18; TEMP 36.3; O2SAT 98
[2020-06-06 13:28] VITALS: BP 122/79; BP 129/79; PULSE 89; RESP 18; TEMP 36.6; O2SAT 97
== END 2020-06-06 13:29 | disposition home or self-care (01) ==
LOC: EN 10:03 → AC 10:04
PROVIDERS: PCP Internal Medicine; Referring Provider Surgery; Visit Provider Surgery
PROC: 0DJD8ZZ Inspection of Lower Intestinal Tract, Via Natural or Artificial Opening Endoscopic (ICD-10-PCS; CPT 45378; principal; 2020-06-06 11:10)
DX: Z12.11 Encounter for screening for malignant neoplasm of colon (principal); K21.9 Gastro-esophageal reflux disease without esophagitis; K44.9 Diaphragmatic hernia without obstruction or gangrene; K22.8 Other specified diseases of esophagus; K62.1 Rectal polyp; K29.50 Unspecified chronic gastritis without bleeding; D12.4 Benign neoplasm of descending colon; Z79.899 Other long term (current) drug therapy; E66.01 Morbid (severe) obesity due to excess calories; E03.9 Hypothyroidism, unspecified; J44.9 Chronic obstructive pulmonary disease, unspecified; F41.8 Other specified anxiety disorders; M19.90 Unspecified osteoarthritis, unspecified site; E78.5 Hyperlipidemia, unspecified; I10 Essential (primary) hypertension; Z68.43 Body mass index [BMI] 50.0-59.9, adult; R14.2 Eructation; Z20.828 Contact with and (suspected) exposure to other viral communicable diseases
CPT/HCPCS: 43239; 45380; 45385; 87426; 88305; 88313; 88342; C9803; J7120; J2405

== ENCOUNTER → 2020-07-17 15:18 | Outpatient (CLI) | payer MEDICAID, SELFPAY | PROVIDERS: PCP Internal Medicine; Referring Provider Internal Medicine; Visit Provider Internal Medicine | DX: R05 Cough (principal) | CPT/HCPCS: 87635; U0005; U0003 ==

== ENCOUNTER → 2020-08-23 14:43 | Outpatient (CLI) | payer MEDICAID, SELFPAY ==
[2020-08-23 14:05] VITALS: BMI 53.8
[2020-08-23 16:58] LABS: Absolute Lymphocyte Count 2.73 X10^3/uL (0.83-4.51); Absolute Neutrophil Count 4.7 X10^3/uL (2.0-7.7); Basophil# 0.06 X10^3/uL; Basophil% 0.7 % (0-1); Eosinophil# 0.12 X10^3/uL; Eosinophils% 1.4 % (0-5); Hematocrit 44.7 % (37-47); Lymphocyte # 2.73 X10^3/ul (4.0); Lymphocyte % 31.9 % (19-41); Mean Corp Hgb Conc 31.3 g/dL (32-36); Mean Corpuscular Hgb 28.1 pg (27.0-32.0); Mean Corpuscular Volume 89.6 fL (81-99); Mean Platelet Vol. 9.7 fl (6.2-12.0); Monocyte# 0.87 X10^3/uL; Monocyte% 10.2 % (0-10); NRBC Flagged by Analyzer 0 % (0-5); Neutrophil # 4.72 X10^3/uL (2.7-7.7); Neutrophil % 55.2 % (47-70); Platelet Count 416 K/mm3 (150-450); RBC Distribution Width CV 15.5 % (11.6-14.6); RBC Distribution Width SD 50.4 fl (35.1-43.9); Red Blood Count 4.99 M/mm3 (4.2-5.4); White Blood Count 8.6 K/mm3 (4.4-11.0)
[2020-08-23 17:10] LABS: Vitamin D,25 Hydroxy 10.6 ng/mL
[2020-08-23 17:14] LABS: Hemoglobin A1c 6.1 % (3.8-5.6)
[2020-08-23 17:20] LABS: ALB/GLOB Ratio 0.7 RATIO (0.9-2.4); AST(SGOT) 21 U/L (15-37); Alanine Aminotransfer ALT/SGPT 30 U/L (13-56); Albumin, Serum 3.4 g/dL (3.2-5.0); Alkaline Phosphatase 144 U/L (45-117); Anion Gap 3 (5-15); BUN 10 mg/dL (7-18); BUN/Creat Ratio 11.4 RATIO (10-20); Calcium,Total 9.3 mg/dL (8.5-10.1); Chloride 102 mmol/L (98-107); Cholesterol 186 mg/dL (200); Creatinine, Serum 0.88 mg/dL (0.55-1.02); EST Glomerular Filtration Rate 72 mL/min (>60); Est Glom Filt Rate - Afr Amer 87 mL/min (>60); Globulin 4.6 g/dL (2.2-4.2); Glucose 81 mg/dL (74-106); High Density Lipoprotein 36 mg/dL; Iron 36 ug/dL (50-170); Iron Binding Capacity,Total 445 ug/dL (250-450); PERCENT IRON SATURATION 8.1 % (15.0-55.0); Potassium 4.5 mmol/L (3.5-5.1); Sodium Level 140 mmol/L (136-145); T4 Free Direct 1.83 ng/dL (0.76-1.46); Thyroid Stim Hormone (TSH) < 0.01 uIU/mL (0.358-3.74); Triglycerides 192 mg/dL; Very Low Density Lipoprotein 38 mg/dL (5-40)
== END ==
PROVIDERS: PCP Internal Medicine; Referring Provider Internal Medicine; Visit Provider Internal Medicine
DX: B37.0 Candidal stomatitis (principal); E11.9 Type 2 diabetes mellitus without complications; I10 Essential (primary) hypertension; E03.9 Hypothyroidism, unspecified; E78.5 Hyperlipidemia, unspecified
CPT/HCPCS: 36415; 80053; 80061; 82306; 83036; 83540; 83550; 84439; 84443; 85025

== ENCOUNTER → 2020-10-23 16:04 | Outpatient (CLI) | payer MEDICAID, SELFPAY ==
[2020-10-22 08:21] VITALS: BMI 53.5
[2020-10-23 18:39] LABS: Probe Check PASS; Specimen Processing Control PASS
== END ==
PROVIDERS: PCP Internal Medicine; Referring Provider Nurse Practitioner Family; Visit Provider Nurse Practitioner Family
DX: Z11.52 Encounter for screening for COVID-19 (principal)
CPT/HCPCS: 87635; U0002

== ENCOUNTER → 2021-01-31 13:20 | Outpatient (CLI) | payer MEDICAID, SELFPAY ==
[2020-12-19 17:00] VITALS: BMI 52.5
[2021-01-31 15:49] LABS: Thyroid Stim Hormone (TSH) 0.01 uIU/mL (0.358-3.74)
== END ==
PROVIDERS: PCP Internal Medicine; Referring Provider Nurse Practitioner Family; Visit Provider Nurse Practitioner Family
DX: E03.9 Hypothyroidism, unspecified (principal)
CPT/HCPCS: 36415; 84439; 84443

== ENCOUNTER → 2021-03-01 09:50 | Outpatient (CLI) | payer MEDICAID, SELFPAY ==
[2020-10-04 10:20] VITALS: BMI 53.5
--- NOTE | 2021-03-01 14:24 | PFT ---
INTRODUCTION: The patient is a 55-year-old female that presents for pulmonary function studies secondary to a diagnosis of COPD. Respiratory therapy reported good patient effort. Bronchodilators were used during testing. INTERPRETATION: Forced expiration spirometry demonstrates the presence of a moderate large airways obstructive ventilatory defect. There was no significant response to aerosolized bronchodilators. Spirograms are of good quality and plateau gradually indicating slow emptying of the lungs. Body plethysmography was performed and revealed an elevated RV to 126% of predicted, indicative of underlying air trapping. Diffusing capacity by single breath CO is reduced to 53% of predicted. IMPRESSION: Irreversible moderate large airways obstructive ventilatory defect with associated air trapping and symmetric reduction in diffusing capacity.
== END ==
PROVIDERS: PCP Internal Medicine; Referring Provider Internal Medicine Critical Care Medicine; Visit Provider Internal Medicine Critical Care Medicine
DX: J44.9 Chronic obstructive pulmonary disease, unspecified (principal)
CPT/HCPCS: 94060; 94726; 94729

== ENCOUNTER → 2021-03-21 09:48 | Outpatient (CLI) | payer MEDICAID, SELFPAY ==
[2021-03-21 12:59] LABS: Anion Gap 9 (5-15); BUN 12 mg/dL (7-18); BUN/Creat Ratio 12.5 RATIO (10-20); Calcium,Total 9.7 mg/dL (8.5-10.1); Chloride 102 mmol/L (98-107); Creatinine, Serum 0.96 mg/dL (0.55-1.02); EST Glomerular Filtration Rate 64 mL/min (>60); Est Glom Filt Rate - Afr Amer 78 mL/min (>60); Glucose 123 mg/dL (74-106); Potassium 4.6 mmol/L (3.5-5.1); Sodium Level 141 mmol/L (136-145); Thyroid Stim Hormone (TSH) 0.05 uIU/mL (0.358-3.74)
== END ==
PROVIDERS: PCP Internal Medicine; Referring Provider Nurse Practitioner Family; Visit Provider Nurse Practitioner Family
DX: I10 Essential (primary) hypertension (principal); E03.9 Hypothyroidism, unspecified
CPT/HCPCS: 36415; 80048; 84443

== ENCOUNTER → 2021-04-05 15:06 | Outpatient (CLI) | payer MEDICAID, SELFPAY | PROVIDERS: PCP Internal Medicine; Referring Provider Nurse Practitioner Adult Health; Visit Provider Nurse Practitioner Adult Health | DX: N39.0 Urinary tract infection, site not specified (principal) | CPT/HCPCS: 87077; 87086; 87088; 87186 ==

== ENCOUNTER → 2021-04-11 12:45 | Outpatient (CLI) | payer MEDICAID, SELFPAY ==
--- NOTE | 2021-04-11 12:56 | CT_ITS ---
STUDY: LOW DOSE CT LUNG CANCER SCREENING REASON FOR EXAM: Female, 55 years old. smoking and gt; 20 pack years RADIATION DOSAGE (If Supplied By Facility): CTDIvol = ( 3.18 ) mGy, DLP = ( 95.29 ) mGycm TECHNIQUE: No contrast was administered. Low dose technique was utilized (average mAS-38 and kVp 120). 1.25 mm axial source images with a slice interval of 1.25-mm were reconstructed in lung windows. 2.5 mm axial source images with a slice interval of 2.5-mm were reconstructed in lung windows. 5.0 mm axial source images with a slice interval of 5.0-mm were reconstructed in soft tissue windows. Nodule measured using lung windows on PACS and/or independent workstation with automated measurement of minimum and maximum diameter. Nodule measurement reported as average diameter rounded to the nearest whole number. Growth is defined as an increase ins size of greater than 1.5 mm. COMPARISON: None. NODULES: Calcified granuloma in the left upper lobe. No noncalcified pulmonary nodules. Parenchymal bleb of the medial left upper lobe. Emphysema: Mild centrilobular emphysema. Endobronchial lesion: None Aorta: No significant atherosclerosis. Coronary arteries: No significant atherosclerosis. Heart: Normal size Pulmonary artery: Unremarkable for unopacified technique. Mediastinal nodes: Calcified right hilar lymph nodes. Other chest and abdominal findings: None CT/Low Dose CT Lung Screening IMPRESSION: Lung-RADS category 1 - Continue annual screening with LDCT in 12 months. IMPORTANT NOTES FOR USE: ACR Lung-RADS Version 1.1 Assessment Categories Release Date: 2018 Category: Coded 0-4 bases on nodule(s) with highest degree of suspicion. Negative screen is defined as categories 1 and 2; a positive screen is defined as categories 3 and 4. Category 3 and 4A nodules that are unchanged on interval CT should be coded as category 2, and individuals returned to screening in 12 months. Category 4X: Category 3 or 4 nodules with additional imaging findings that increase the suspicion of lung cancer, such as spiculation, GGN that doubles in size in 1 year, enlarged lymph notes, etc. Category Modifiers: S (significant finding unrelated to lung cancer) Electronically Signed: Chava Lorenzo MD ([place]) at 15:11 EDT , Service support ,
== END ==
PROVIDERS: PCP Internal Medicine; Referring Provider Nurse Practitioner Acute Care; Visit Provider Nurse Practitioner Acute Care
DX: F17.210 Nicotine dependence, cigarettes, uncomplicated (principal)
CPT/HCPCS: 71271

== ENCOUNTER → 2021-04-26 13:14 | Outpatient (CLI) | payer MEDICAID, SELFPAY ==
[2021-04-26 15:38] LABS: T4 Free Direct 1.54 ng/dL (0.76-1.46); Thyroid Stim Hormone (TSH) 0.04 uIU/mL (0.358-3.74)
== END ==
PROVIDERS: PCP Internal Medicine; Referring Provider Nurse Practitioner Family; Visit Provider Nurse Practitioner Family
DX: E03.9 Hypothyroidism, unspecified (principal)
CPT/HCPCS: 36415; 84439; 84443

== ENCOUNTER → 2021-05-14 14:09 | Outpatient (CLI) | payer MEDICAID, SELFPAY | PROVIDERS: PCP Internal Medicine; Referring Provider Physician Assistant Surgical; Visit Provider Physician Assistant Surgical | DX: Z11.52 Encounter for screening for COVID-19 (principal) | CPT/HCPCS: 87635; U0005; U0003 ==

== ENCOUNTER → 2021-06-07 14:33 | Outpatient (CLI) | payer MEDICAID, SELFPAY | PROVIDERS: PCP Internal Medicine; Referring Provider Physician Assistant; Visit Provider Physician Assistant | DX: U07.1 COVID-19 (principal) | CPT/HCPCS: 87635; U0005; U0003 ==

== ENCOUNTER 2021-07-18 13:02 | Outpatient (CLI) | payer MEDICAID, SELFPAY ==
[2021-07-18 15:40] LABS: T4 Free Direct 1.04 ng/dL (0.76-1.46); Thyroid Stim Hormone (TSH) 5.58 uIU/mL (0.358-3.74)
== END 2021-07-18 23:59 | disposition short-term general hospital (02) ==
LOC: BIMLAB 13:03
PROVIDERS: PCP Internal Medicine; Referring Provider Physician Assistant; Visit Provider Physician Assistant
DX: E03.9 Hypothyroidism, unspecified (principal)
CPT/HCPCS: 36415; 84439; 84443

== ENCOUNTER 2021-09-10 11:10 | Outpatient (CLI) | payer MEDICAID, SELFPAY ==
[2021-09-10 12:29] LABS: Absolute Lymphocyte Count 2.65 X10^3/uL (0.83-4.51); Absolute Neutrophil Count 5.1 X10^3/uL (2.0-7.7); Basophil# 0.05 X10^3/uL; Basophil% 0.6 % (0-1); Eosinophil# 0.16 X10^3/uL; Eosinophils% 1.9 % (0-5); Hematocrit 46.6 % (37-47); Hemoglobin 14.9 g/dL (12.0-15.0); Lymphocyte # 2.65 X10^3/ul (0.83-4.51); Lymphocyte % 30.7 % (19-41); Mean Corpuscular Hgb 29.4 pg (27.0-32.0); Mean Corpuscular Volume 92.1 fL (81-99); Mean Platelet Vol. 9.7 fl (6.2-12.0); Monocyte# 0.66 X10^3/uL; Monocyte% 7.6 % (0-10); NRBC Flagged by Analyzer 0 % (0-5); Neutrophil # 5.09 X10^3/uL (2.7-7.7); Neutrophil % 58.9 % (47-70); Platelet Count 406 K/mm3 (150-450); RBC Distribution Width CV 14.8 % (11.6-14.6); RBC Distribution Width SD 49.5 fl (35.1-43.9); Red Blood Count 5.06 M/mm3 (4.2-5.4); White Blood Count 8.6 K/mm3 (4.4-11.0)
[2021-09-10 13:31] LABS: ALB/GLOB Ratio 0.7 RATIO (0.9-2.4); AST(SGOT) 24 U/L (15-37); Alanine Aminotransfer ALT/SGPT 31 U/L (13-56); Albumin, Serum 3.4 g/dL (3.2-5.0); Alkaline Phosphatase 131 U/L (45-117); Anion Gap 7 (5-15); BUN 14 mg/dL (7-18); BUN/Creat Ratio 15.8 RATIO (10-20); Chloride 97 mmol/L (98-107); Cholesterol 160 mg/dL (200); Creatinine, Serum 0.88 mg/dL (0.55-1.02); EST Glomerular Filtration Rate 71 mL/min (>60); Est Glom Filt Rate - Afr Amer 86 mL/min (>60); Globulin 4.9 g/dL (2.2-4.2); Glucose 136 mg/dL (74-106); High Density Lipoprotein 40 mg/dL; Protein, Total 8.3 g/dL (6.4-8.2); Sodium Level 137 mmol/L (136-145); Thyroid Stim Hormone (TSH) 2.93 uIU/mL (0.358-3.74); Triglycerides 189 mg/dL; Very Low Density Lipoprotein 38 mg/dL (5-40)
== END 2021-09-10 23:59 | disposition home or self-care (01) ==
LOC: BIMLAB 11:11
PROVIDERS: PCP Internal Medicine; Referring Provider Internal Medicine; Visit Provider Internal Medicine
DX: I10 Essential (primary) hypertension (principal); E03.9 Hypothyroidism, unspecified
CPT/HCPCS: 36415; 80053; 80061; 84443; 85025

== ENCOUNTER 2021-09-25 09:33 | Outpatient (CLI) | payer MEDICAID, SELFPAY ==
--- NOTE | 2021-09-25 09:42 | RAD_ITS ---
STUDY: X-RAY - CERVICAL SPINE REASON FOR EXAM: Female, 55 years old. Neck/Shoulder Pain TECHNIQUE: 3 view(s) of the cervical spine were obtained. COMPARISON: None FINDINGS: Normal anterior atlantoaxial articulation. Normal odontoid process. Normal cervical lordosis. Normal vertebral bodies and endplates. Normal disc space heights. Normal visualized intervertebral neuroforamina. The soft tissue structures are unremarkable. RAD/Cerv Spine 2 or 3 Views IMPRESSION: Normal x-ray examination of the visualized cervical spine. Electronically Signed: Jose Enrique Levy MD at 11:31 EDT ,
--- NOTE | 2021-09-26 07:35 | PFT ---
INTRODUCTION: The patient is a 55-year-old female that presents for pulmonary function studies secondary to a diagnosis of COPD. Respiratory therapy reported good patient effort. Bronchodilators were used during testing. INTERPRETATION: Forced expiration spirometry demonstrates the presence of a severe large airways obstructive ventilatory defect. There was a significant response to bronchodilators based upon change noted in FVC. Spirograms are of good quality and plateau gradually indicating slow emptying of the lungs. Body plethysmography was performed and revealed a decreased TLC to 3.7 L, 75% of predicted, indicative of a mild restrictive ventilatory impairment. Diffusing capacity by single breath CO is reduced at 54% of predicted. When compared to previous pulmonary function studies in February 2021 there has been a 25% reduction in FEV1. IMPRESSION: Partially reversible severe mixed ventilatory defect with symmetric reduction in diffusing capacity. There has been worsening in the patient's pulmonary function studies since February 2021.
== END 2021-09-25 23:59 | disposition home or self-care (01) ==
PROVIDERS: PCP Internal Medicine; Referring Provider Nurse Practitioner Acute Care; Visit Provider Nurse Practitioner Acute Care
DX: M54.12 Radiculopathy, cervical region (principal); J44.9 Chronic obstructive pulmonary disease, unspecified
CPT/HCPCS: 72040; 94060; 94726; 94729

== ENCOUNTER 2021-10-21 12:28 | Outpatient (CLI) | payer MEDICAID, SELFPAY ==
[2021-10-21 12:54] VITALS: PULSE 100; PULSE 112; PULSE 113; PULSE 116; PULSE 120; PULSE 124; PULSE 97; O2SAT 92; O2SAT 95; O2SAT 96
--- NOTE | 2021-10-21 12:57 | CPS ---
Patient states she wears oxygen at home at night. Performed 6 minute walk on room air and patient wanted to push the wheelchair for support. Patient took one brief 3 second pause during the first minute of testing. Patient wanted to sit down in the wheelchair at the start of minute 3, SpO2 96% and heart rate 124 at this time. Patient sat in wheelchair until the start of the 5th minute. She walked an additional 97 ft in the remaining minute of the test.
--- NOTE | 2021-10-22 07:10 | PCM.PSN.6M ---
PSN 6 Minute Walk Test 6 Minute Walk Test 6 Minute Walk Test: 6 Minute Walk Test PSN:6-Minute Walk Test Start: 10/21/21 12:54 Freq: Status: Active Protocol: [id number].6MINW Document 10/21/21 12:54 SARANYA (Rec: 10/21/21 13:00 SARANYA [id number]) 6 Minute Walk Test Date Performed 10/21/21 Time Performed 12:40 Height 5 ft 4 in Weight: 141.521 kg Weight in Pounds 312.[address]: Ty Pulido Assistive device used: Walker Pre-test Pulse Ox (%) 92 Pulse Rate (60-100 beats/min) 97 Dyspnea Betsy Scale (0-10) 0.5 Exertion Betsy Scale (6-20) 6 1st minute Oxygen Delivery Method Room Air Pulse Ox (%) 95 Pulse Rate (60-100 beats/min) 113 H Number of Rests Taken 1 2nd minute Oxygen Delivery Method Room Air Pulse Ox (%) 96 Pulse Rate (60-100 beats/min) 120 H 3rd minute Oxygen Delivery Method Room Air Pulse Ox (%) 96 Pulse Rate (60-100 beats/min) 124 H Number of Rests Taken 1 4th minute Oxygen Delivery Method Room Air Pulse Ox (%) 95 Pulse Rate (60-100 beats/min) 120 H Number of Rests Taken 1 5th minute Oxygen Delivery Method Room Air Pulse Ox (%) 96 Pulse Rate (60-100 beats/min) 112 H Number of Rests Taken 1 6th minute Oxygen Delivery Method Room Air Pulse Ox (%) 95 Pulse Rate (60-100 beats/min) 116 H Dyspnea Betsy Scale (0-10) 4 Exertion Betsy Scale (6-20) 14 Post-test Oxygen Delivery Method Room Air Pulse Ox (%) 95 Pulse Rate (60-100 beats/min) 100 Full Laps Walked 5 Partial Lap, Number of Tiles Walked 38 Total Distance Walked (ft) 333 10/21/21 12:57 Cardiopulmonary Services by Shelby Hernandez Patient states she wears oxygen at home at night. Performed 6 minute walk on room air and patient wanted to push the wheelchair for support. Patient took one brief 3 second pause during the first minute of testing. Patient wanted to sit down in the wheelchair at the start of minute 3, SpO2 96% and heart rate 124 at this time. Patient sat in wheelchair until the start of the 5th minute. She walked an additional 97 ft in the remaining minute of the test. Initialized on 10/21/21 12:57 - END OF NOTE Interpretation Interpretation: The patient ambulated 333 feet over the course of 6 minutes beginning on room air with the use of a push wheelchair. Pretesting oxygen saturation was noted to be 92% on room air. With ambulation, the marina oxygen saturation was 95%. Although there was no significant exertional oxygen desaturation, there was significantly impaired walk distance. Recommendations Recommendations: There is no indication for the use of supplemental oxygen at this time. However, the sensitivity for detecting exertional oxygen desaturation was limited by the patient's walk distance.
== END 2021-10-21 23:59 | disposition home or self-care (01) ==
LOC: PSN 12:29
PROVIDERS: PCP Internal Medicine; Visit Provider Nurse Practitioner Acute Care
DX: J44.9 Chronic obstructive pulmonary disease, unspecified (principal)
CPT/HCPCS: 94618

== ENCOUNTER → 2021-11-20 | Outpatient (CLI) | payer MEDICAID, SELFPAY | END | disposition home or self-care (01) | PROVIDERS: PCP Internal Medicine; Visit Provider Nurse Practitioner Acute Care | DX: G47.33 Obstructive sleep apnea (adult) (pediatric) (principal) | CPT/HCPCS: 95811 ==

== ENCOUNTER → 2021-12-06 | Outpatient (CLI) | payer MEDICAID, SELFPAY ==
[2021-12-06 15:56] LABS: Absolute Neutrophil Count 6.8 X10^3/uL (2.0-7.7); Basophil# 0.06 X10^3/uL; Basophil% 0.5 % (0-1); Eosinophil# 0.15 X10^3/uL; Eosinophils% 1.4 % (0-5); Hematocrit 44.9 % (37-47); Hemoglobin 14.2 g/dL (12.0-15.0); Lymphocyte % 27.4 % (19-41); Mean Corp Hgb Conc 31.6 g/dL (32-36); Mean Corpuscular Hgb 28.1 pg (27.0-32.0); Mean Corpuscular Volume 88.7 fL (81-99); Mean Platelet Vol. 9.6 fl (6.2-12.0); Monocyte% 8.2 % (0-10); NRBC Flagged by Analyzer 0 % (0-5); Neutrophil # 6.79 X10^3/uL (2.7-7.7); Platelet Count 413 K/mm3 (150-450); RBC Distribution Width CV 14.6 % (11.6-14.6); RBC Distribution Width SD 47.3 fl (35.1-43.9); Red Blood Count 5.06 M/mm3 (4.2-5.4)
[2021-12-06 16:15] LABS: ALB/GLOB Ratio 0.7 RATIO (0.9-2.4); AST(SGOT) 19 U/L (15-37); Alanine Aminotransfer ALT/SGPT 30 U/L (13-56); Albumin, Serum 3.3 g/dL (3.2-5.0); Alkaline Phosphatase 120 U/L (45-117); Anion Gap 6 (5-15); BUN 19 mg/dL (7-18); BUN/Creat Ratio 18.8 RATIO (10-20); Calcium,Total 9.3 mg/dL (8.5-10.1); Chloride 99 mmol/L (98-107); Creatinine, Serum 1.01 mg/dL (0.55-1.02); EST Glomerular Filtration Rate 61 mL/min (>60); Est Glom Filt Rate - Afr Amer 74 mL/min (>60); Globulin 4.6 g/dL (2.2-4.2); Glucose 79 mg/dL (74-106); Potassium 4.6 mmol/L (3.5-5.1); Protein, Total 7.9 g/dL (6.4-8.2); Sodium Level 137 mmol/L (136-145); Thyroid Stim Hormone (TSH) 2.68 uIU/mL (0.358-3.74)
== END | disposition home or self-care (01) ==
LOC: BIMLAB 13:57
PROVIDERS: PCP Internal Medicine; Referring Provider Physician Assistant; Visit Provider Physician Assistant
DX: N93.9 Abnormal uterine and vaginal bleeding, unspecified (principal)
CPT/HCPCS: 36415; 80053; 84443; 85025

== ENCOUNTER → 2021-12-13 | Outpatient (CLI) | payer MEDICAID, SELFPAY ==
--- NOTE | 2021-12-13 15:25 | US_ITS ---
EXAM: US pelvis, transvaginal.. HISTORY: abnormal uterine bleeding TECHNIQUE: US Pelvis Non-OB Complete COMPARISON: None. LIMITATIONS: None. UTERUS Size: Within normal limits Heterogeneous myometrium. Nabothian cysts. Orientation: Normal. Endometrial echo: Normal. 8 mm Masses: None. RIGHT OVARY not visualized due to poor acoustic window and overlying bowel gas. LEFT OVARY Size: Within normal limits. Masses: None. Vascularity: Normal Doppler signal. ADNEXA: No masses or fluid collections. CUL-DE-SAC: No masses or fluid collections. OTHER: None. CONCLUSION: 1. Endometrium 8 mm. 2. Normal morphologic and vascular appearance of the left ovary. 3. Right ovary not visualized. Electronically Signed: Sanford Mccullough MD at 0:35 EDT , US/Transvaginal Non- IMPRESSION: undefined
--- NOTE | 2021-12-13 15:25 | US_ITS ---
EXAM: US pelvis, transvaginal.. HISTORY: abnormal uterine bleeding TECHNIQUE: US Pelvis Non-OB Complete COMPARISON: None. LIMITATIONS: None. UTERUS Size: Within normal limits Heterogeneous myometrium. Nabothian cysts. Orientation: Normal. Endometrial echo: Normal. 8 mm Masses: None. RIGHT OVARY not visualized due to poor acoustic window and overlying bowel gas. LEFT OVARY Size: Within normal limits. Masses: None. Vascularity: Normal Doppler signal. ADNEXA: No masses or fluid collections. CUL-DE-SAC: No masses or fluid collections. OTHER: None. CONCLUSION: 1. Endometrium 8 mm. 2. Normal morphologic and vascular appearance of the left ovary. 3. Right ovary not visualized. Electronically Signed: Sanford Mccullough MD at 0:35 EDT , US/Pelvic (Non ) IMPRESSION: undefined
== END | disposition home or self-care (01) ==
LOC: US 15:24
PROVIDERS: PCP Internal Medicine; Referring Provider Physician Assistant; Visit Provider Physician Assistant
DX: N93.9 Abnormal uterine and vaginal bleeding, unspecified (principal)
CPT/HCPCS: 76830; 76856

== ENCOUNTER → 2021-12-24 | Outpatient (CLI) | payer MEDICAID, SELFPAY | END | disposition home or self-care (01) | LOC: SL 13:34 | PROVIDERS: PCP Internal Medicine; Referring Provider Nurse Practitioner Acute Care; Visit Provider Nurse Practitioner Acute Care | DX: Z46.89 Encounter for fitting and adjustment of other specified devices (principal) ==

== ENCOUNTER 2022-01-07 16:41 | Emergency (ER) | payer MEDICAID, SELFPAY ==
[2022-01-07 16:42] VITALS: BP 129/88; PULSE 88; RESP 16; TEMP 35.7; O2SAT 95; BMI 53.5
--- NOTE | 2022-01-07 17:56 | US_ITS ---
EXAM: US ABDOMEN LIMITED, RIGHT UPPER QUADRANT CLINICAL INDICATION: PAIN-abd TECHNIQUE: Real-time ultrasound of the right upper quadrant with image documentation. This report was created using Elance report generation technology. COMPARISON: None. FINDINGS: LIVER: Enlarged and echogenic liver with decreased through transmission of sound, 19.1 cm in length. Patent periportal vessels, not well seen. GALLBLADDER: Unremarkable gallbladder and 5 mm common duct. No shadowing gallstone. No gallbladder wall thickening is demonstrated. No pericholecystic fluid. Negative sonographic Falk''s sign. COMMON BILE DUCT: See above. PANCREAS: Incompletely visualized pancreas, the small visualized segment of head-proximal body appears unremarkable. RIGHT KIDNEY: Right kidney 10.3 cm x 5.4 cm x 6 cm. There is no hydronephrosis. No shadowing calculus. No focal lesion or perinephric collection is demonstrated. US/Gallbladder IMPRESSION: 1. Normal gallbladder and ducts. 2. Incompletely visualized pancreas. 3. Hepatomegaly and fatty liver. Electronically Signed: Kati Johnson MD at 22:44 EDT ,
[2022-01-07] MEDS: morphine 8 MG/ML Syringe IV (18:07)
[2022-01-07] MEDS: Ondansetron 4 MG/2 ML Vial IV (18:08)
[2022-01-07 18:21] LABS: Absolute Lymphocyte Count 2.32 X10^3/uL (0.83-4.51); Absolute Neutrophil Count 6.2 X10^3/uL (2.0-7.7); Basophil# 0.06 X10^3/uL; Basophil% 0.6 % (0-1); Eosinophil# 0.14 X10^3/uL; Eosinophils% 1.5 % (0-5); Hematocrit 44.6 % (37-47); Lymphocyte # 2.32 X10^3/ul (0.83-4.51); Lymphocyte % 24.4 % (19-41); Mean Corp Hgb Conc 31.4 g/dL (32-36); Mean Corpuscular Hgb 27.6 pg (27.0-32.0); Mean Corpuscular Volume 87.8 fL (81-99); Mean Platelet Vol. 9.5 fl (6.2-12.0); Monocyte# 0.69 X10^3/uL; Monocyte% 7.3 % (0-10); NRBC Flagged by Analyzer 0 % (0-5); Neutrophil # 6.23 X10^3/uL (2.7-7.7); Neutrophil % 65.7 % (47-70); Platelet Count 389 K/mm3 (150-450); RBC Distribution Width CV 14.9 % (11.6-14.6); RBC Distribution Width SD 48.1 fl (35.1-43.9); Red Blood Count 5.08 M/mm3 (4.2-5.4); White Blood Count 9.5 K/mm3 (4.4-11.0)
[2022-01-07 18:51] LABS: AST(SGOT) 24 U/L (15-37); Alanine Aminotransfer ALT/SGPT 27 U/L (13-56); Albumin, Serum 3.4 g/dL (3.2-5.0); Alkaline Phosphatase 115 U/L (45-117); Bilirubin, Direct 0.13 mg/dL (0.00-0.30); Globulin 4.5 g/dL (2.2-4.2); Lipase 109 U/L (73-393); Protein, Total 7.9 g/dL (6.4-8.2)
--- NOTE | 2022-01-07 18:59 | ED.VIS.GI ---
HPI HPI - GI History of Present Illness Chief Complaint: Abd Pain Detail of Chief Complaint: Right upper quadrant abdominal pain Abdominal Pain/Flank Pain Onset: Days Context: Sudden Onset Timing: Intermittent and Waxes and wanes Quality: Cramping Location: RUQ Current Severity: Mild Maximum Severity: Severe Worsened by: Food (After eating 2-3 hotdogs this afternoon between 1516 100) Relieved by: Nothing Nausea/Vomiting/Emesis GI Symptom: Positive for Nausea; Negative for Vomiting Diarrhea/Melena/Hematochezia GI Symptom: Negative for Diarrhea, Melena or Hematochezia Associated Symptoms Associated Symptoms: Negative for Dysuria, Frequency, Hematuria or Urgency LMP: Status post partial hysterectomy Narrative Narrative: Patient is a 56-year-old morbidly obese woman who presents with right upper quadrant pain made worse after having hotdogs. She had intermittent pain in the right upper quadrant with radiation to her back. She denies history of cholelithiasis. She denies respiratory symptoms. She denies fever. She denies dysuria, frequency, urgency or hematuria. She denies history of renal ureterolithiasis. She denies trauma. Prior similar symptoms: No Recent Illness/Hospitalization: No PFSH PFSH Medical History Acute otitis externa Anemia Arthritis Bilateral lower extremity edema Bilateral lower extremity edema Cervical radiculopathy Chronic back pain Continuous tobacco abuse COPD (chronic obstructive pulmonary disease) COVID-19 Depression with anxiety Environmental allergies Epigastric pain Fatigue GERD (gastroesophageal reflux disease) Hyperlipidemia Hypertension Hypothyroidism Intertrigo Microscopic hematuria Migraines Morbid obesity Pain of left mastoid Sleep-related breathing disorder UTI (urinary tract infection) Home Medications Lactobacillus rhamnosus GG 15 billion cell sprinkle capsule (Culturelle) 1 cap PO DAILY #90 caps 11/15/19 [Rx Last Taken Unknown] montelukast 10 mg tablet 10 mg PO QPM #90 tabs 05/29/20 [Rx Last Taken Unknown] Bariatric shower chair #1 ea 06/26/20 [Rx Last Taken Unknown] bupropion HCl 300 mg 24 hr tablet, extended release 300 mg PO DAILY 08/28/20 [History Last Taken Unknown] duloxetine 60 mg capsule,delayed release 60 mg PO DAILY 08/28/20 [History Last Taken Unknown] amlodipine 5 mg tablet 5 mg PO DAILY #90 tabs 03/08/21 [Rx Last Taken Unknown] miconazole nitrate 2 % topical powder (Zeasorb AF) 1 applic topical BID #71 grams 03/08/21 [Rx Last Taken Unknown] Nebulizer #1 ea 03/14/21 [Rx Last Taken Unknown] tiotropium bromide 2.5 mcg/actuation mist for inhalation (Spiriva Respimat) 2 puff inhalation QDAY #1 ea 03/14/21 [Rx Last Taken Unknown] nystatin 100,000 unit/mL oral suspension 5 ml PO Q6H #250 mL 04/04/21 [Rx Last Taken Unknown] pravastatin 40 mg tablet 40 mg PO DAILY #90 tabs 05/23/21 [Rx Last Taken Unknown] hydrochlorothiazide 25 mg tablet 25 mg PO QAM #90 tabs 06/21/21 [Rx Last Taken Unknown] cyclobenzaprine 10 mg tablet 10 mg PO BID PRN muscle spasm #30 tabs 09/10/21 [Rx Last Taken Unknown] budesonide-formoterol HFA 160 mcg-4.5 mcg/actuation aerosol inhaler (Symbicort) 2 puff inhalation BID #1 ea 09/11/21 [Rx Last Taken Unknown] fluticasone propionate 50 mcg/actuation nasal spray,suspension 2 spray intranasal DAILY #9.9 mL 09/17/21 [Rx Last Taken Unknown] loratadine 10 mg capsule 10 mg PO QDAY #90 caps 09/17/21 [Rx Last Taken Unknown] 3 in 1 commode #1 ea 10/11/21 [Rx Last Taken Unknown] cholecalciferol (vitamin D3) 1,250 mcg (50,000 unit) capsule 1,250 mcg PO QWEEK #12 caps 12/03/21 [Rx Last Taken Unknown] levothyroxine 150 mcg tablet 150 mcg PO DAILY #30 tabs 12/03/21 [Rx Last Taken Unknown] pantoprazole 40 mg tablet,delayed release 40 mg PO BID #180 tabs 12/03/21 [Rx Last Taken Unknown] albuterol sulfate 2.5 mg (3 mL) inhalation Q4H PRN shortness of breath or wheezing #180 mL 12/06/21 [Rx Last Taken Unknown] albuterol sulfate 90 mcg/actuation aerosol inhaler (Ventolin HFA) 2 puff inhalation Q4H PRN shortness of breath or wheezing #18 grams 12/06/21 [Rx Last Taken Unknown] escitalopram oxalate 20 mg tablet 20 mg PO DAILY #30 tabs 12/06/21 [Rx Last Taken Unknown] melatonin 3 mg tablet 3 mg PO DAILY 12/18/21 [History Last Taken Unknown] ciprofloxacin HCl 250 mg tablet 250 mg PO BID urinary tract infection #10 tabs 01/07/22 [Rx Last Taken Unknown] Allergy/AdvReac Type Severity Reaction Status Date / Time Penicillins Allergy Unknown Unknown Verified 01/07/22 16:44 Sulfa (Sulfonamide Allergy Unknown Unknown Verified 01/07/22 16:44 Antibiotics) Family History Mother Depression Stomach cancer COPD (chronic obstructive pulmonary disease) Asthma Hypertension Thyroid disorder Father Heart disease Myocardial infarction Hypertension COPD (chronic obstructive pulmonary disease) CVA (cerebral vascular accident) Diabetes Lupus Daughter Asthma Heart disease Thyroid disorder Daughter Asthma Depression Surgical History H/O left knee surgery Hx of tubal ligation S/P removal of ovarian cyst S/P thyroid biopsy Social History (Updated 01/07/22 @ 19:[address] Henry Rowe MD) household members: none Smoking Status: Current every day smoker tobacco type: cigarettes second hand exposure: Yes alcohol intake: never substance use type: does not use what type of physical activity do you participate in: none ROS ROS ED Constitutional Constitutional ED: Denies chills, fever(s), subjective, sweats or weight loss ENT ENT ED: Denies ear pain, rhinorrhea or sore throat Cardiovascular Cardiovascular: Denies chest pain, palpitations or racing heartbeat Respiratory/Chest Respiratory/Chest: Denies cough, dyspnea or dyspnea on exertion Gastrointestinal Gastrointestinal: Reports abdominal pain; Denies constipation, diarrhea, melena, nausea or vomiting Genitourinary Genitourinary ED: Denies dysuria, hematuria or urinary frequency Musculoskeletal Musculoskeletal: Reports back pain; Denies arthralgias, myalgias or neck pain Integumentary Denies abscess, Abrasions or rash Neurologic Neurologic: Denies headache(s), paresthesias or weakness Psychiatric Psychiatric: Denies anxiety, depression or suicidal thoughts Endocrine Endocrinology: Denies polydipsia, polyphagia or polyuria Hematologic/Lymphatic Hematologic/Lymphatic: Denies easy bleeding or easy bruising Allergic/Immunologic Allergic/Immunologic ED: Denies mouth swelling, tongue swelling or urticaria EXAM Physical Exam Const Vital Signs: 01/07/22 16:42 01/07/22 21:43 01/07/22 21:43 Temperature 96.2 F L 97.4 F L Temperature Source Temporal Temporal Pulse Rate 88 98 Respiratory Rate 16 16 Blood Pressure 129/88 H 141/99 H Blood Pressure Mean 101 113 Pulse Ox 95 75 95 Oxygen Delivery Method Room Air Room Air Nasal Cannula Oxygen Flow Rate (L/min) 6 Positive well nourished, well developed, obese and unkempt; Negative for cachectic or contractures Constitutional Narrative: Patient is holding her right hand against her right upper quadrant. General Appearance ED: unkempt and well developed; Negative for cachectic, contractures, NAD or pallor Nutritional Appearance: obese; Negative for cachectic HEENT Reports TM's clear and dry mucous membranes normocephalic and atraumatic Tympanic Membrane ED: Yes TM's clear Mouth ED: Yes dry mucous membranes Mouth: dry mucous membranes Eyes PERRL and EOMs intact bilaterally General Eye ED: Negative for pale conjunctiva or scleral icterus Neck no lymphadenopathy, supple and no JVD General: tenderness Resp normal respiratory effort and clear to auscultation bilaterally Cardio regular rate, regular rhythm, S1 normal heart sound, S2 normal heart sound and no murmurs GI Negative for non-tender Auscultation: normoactive bowel sounds Palpation: soft Back/Spine no CVA tenderness Cervical Spine: Negative for cervical spine tenderness Thoracic Spine / Upper Back: Negative for thoracic spinal tenderness Lumbar Spine / Lower Back: Negative for lumbar spinal tenderness Neuro CN's II-XII intact bilaterally, moves all extremities and no sensory deficits noted Sensorium / Orientation: alert Motor Exam: strength 5/5 throughout Psych Appearance: unkempt Skin no wounds General Skin Exam: Negative for jaundice or pallor Lesions: no lesions Rashes: no rashes MDM MDM MDM Narrative Medical decision making narrative: Clinically patient has a Falk sign. With pain worse with hotdogs right upper quadrant pain concern patient has cholelithiasis/cholecystitis. Appropriate blood work was ordered. Since she had hotdogs between 3 PM and 4 PM ultrasound was ordered for 10 PM. She was medicated with morphine. With normal laboratory results and a normal gallbladder on ultrasound suspect patient's right upper quadrant pain is due to fatty liver. Lab Data Attestation: I reviewed the patient's lab results. Labs: Laboratory Results - last 24 hr 01/07/22 01/07/22 18:08 18:08 WBC 9.5 RBC 5.08 Hgb 14.0 Hct 44.6 MCV 87.8 MCH 27.6 MCHC 31.4 L RDW Std Deviation 48.1 H RDW Coeff of Joon 14.9 H Plt Count 389 MPV 9.5 Immature Gran % (Auto) 0.500 Neut % (Auto) 65.7 Lymph % (Auto) 24.4 Dougherty % (Auto) 7.3 Eos % (Auto) 1.5 Baso % (Auto) 0.6 Absolute Neuts (auto) 6.2 Absolute Lymphs (auto) 2.32 Nucleated RBC % 0 Total Bilirubin 0.60 Direct Bilirubin 0.13 AST 24 ALT 27 Alkaline Phosphatase 115 Total Protein 7.9 Albumin 3.4 Globulin 4.5 H Lipase 109 Radiography Diagnostic Testing: Clinical Impression(s) from Imaging Studies Gallbladder Ultrasound 01/07/22 17:56 IMPRESSION: 1. Normal gallbladder and ducts. 2. Incompletely visualized pancreas. 3. Hepatomegaly and fatty liver. Electronically Signed: Kati Johnson MD at 22:44 EDT , Discharge Plan Triage Chief Complaint: Abd Pain ED Provider: Henry Rowe Dx/Rx/DC Orders Clinical Impression: Fatty infiltration of liver, Right upper quadrant abdominal pain Instructions: Nonalcoholic Fatty Liver ... Prescriptions: No Action Culturelle 15 billion cell capsule, sprinkle 1 cap PO DAILY Qty: 90 0RF montelukast 10 mg tablet 10 mg PO QPM Qty: 90 0RF amlodipine 5 mg tablet 5 mg PO DAILY Qty: 90 3RF Zeasorb AF 2 % powder 1 applic topical BID Qty: 71 3RF Spiriva Respimat 2.5 mcg/actuation mist 2 puff inhalation QDAY Qty: 1 6RF Rx Instructions: administer at approximately the same time(s) each day (DME) Nebulizer See Rx Instructions .ROUTE .MEDSUPPLY Qty: 1 0RF Rx Instructions: As directed cyclobenzaprine 10 mg tablet 10 mg PO BID PRN (Reason: muscle spasm) Qty: 30 0RF fluticasone propionate 50 mcg/actuation spray,suspension 2 spray INTRANASAL DAILY Qty: 9.9 3RF Rx Instructions: administer into each nostril loratadine 10 mg capsule 10 mg PO QDAY Qty: 90 3RF melatonin 3 mg tablet 3 mg PO DAILY escitalopram oxalate 20 mg tablet 20 mg PO DAILY Qty: 30 1RF albuterol sulfate [Ventolin HFA] 90 mcg/actuation HFA aerosol inhaler 2 puff INHALATION Q4H PRN (Reason: shortness of breath or wheezing) Qty: 18 6RF albuterol sulfate 2.5 mg /3 mL (0.083 %) solution for nebulization 2.5 mg INHALATION Q4H PRN (Reason: shortness of breath or wheezing) Qty: 180 3RF ciprofloxacin HCl 250 mg tablet 250 mg PO BID Qty: 10 0RF bupropion HCl 300 MG tablet extended release 24 hr 300 mg PO DAILY duloxetine 60 MG capsule,delayed release(DR/EC) 60 mg PO DAILY (DME) Bariatric shower chair See Rx Instructions .Route .MEDSUPPLY Qty: 1 0RF Rx Instructions: As directed nystatin 100,000 unit/mL suspension 5 ml PO Q6H Qty: 250 0RF Rx Instructions: Swish and swallow for 10 days. pravastatin 40 mg tablet 40 mg PO DAILY Qty: 90 3RF hydrochlorothiazide 25 mg tablet 25 mg PO QAM Qty: 90 1RF budesonide-formoterol [Symbicort] 160-4.5 mcg/actuation HFA aerosol inhaler 2 puff INHALATION BID Qty: 1 6RF Rx Instructions: administer with spacer, rinse mouth after each use (DME) 3 in 1 commode See Rx Instructions .Route .MEDSUPPLY Qty: 1 0RF Rx Instructions: As directed levothyroxine 150 mcg tablet 150 mcg PO DAILY Qty: 30 2RF pantoprazole 40 mg tablet,delayed release (DR/EC) 40 mg PO BID Qty: 180 1RF cholecalciferol (vitamin D3) 1,250 mcg (50,000 unit) capsule 1,250 mcg PO QWEEK Qty: 12 4RF Primary Care Provider: Sarah Cleaning Referrals: Sarah Cleaning MD [Primary Care Provider] - As Needed Disposition Disposition: Home, Self Care
[2022-01-07 21:43] VITALS: BP 141/99; PULSE 98; RESP 16; TEMP 36.3; O2SAT 75; O2SAT 95
== END 2022-01-08 00:05 | disposition home or self-care (01) ==
PROVIDERS: Emergency Provider Emergency Medicine; PCP Internal Medicine; Visit Provider Emergency Medicine
DX: K76.0 Fatty (change of) liver, not elsewhere classified (principal); R10.11 Right upper quadrant pain; R39.9 Unspecified symptoms and signs involving the genitourinary system; F17.210 Nicotine dependence, cigarettes, uncomplicated; E66.9 Obesity, unspecified; Z86.16 Personal history of COVID-19
CPT/HCPCS: 36415; 76705; 80053; 80061; 80076; 81001; 82150; 83690; 85025; 87077; 87086; 87088; 87186; 96374; 96375; 99284; A4216; J2405

== ENCOUNTER → 2022-01-07 | Outpatient (CLI) | payer MEDICAID, SELFPAY ==
[2022-01-07 10:15] LABS: Mucous, Urine 0 SEEN /hpf (<or=2+)
[2022-01-07 12:27] LABS: Absolute Lymphocyte Count 2.39 X10^3/uL (0.83-4.51); Absolute Neutrophil Count 4.3 X10^3/uL (2.0-7.7); Basophil# 0.05 X10^3/uL; Basophil% 0.7 % (0-1); Eosinophil# 0.13 X10^3/uL; Eosinophils% 1.7 % (0-5); Hematocrit 45.3 % (37-47); Hemoglobin 14.2 g/dL (12.0-15.0); Lymphocyte # 2.39 X10^3/ul (0.83-4.51); Lymphocyte % 31.8 % (19-41); Mean Corp Hgb Conc 31.3 g/dL (32-36); Mean Corpuscular Hgb 27.8 pg (27.0-32.0); Mean Corpuscular Volume 88.6 fL (81-99); Mean Platelet Vol. 9.3 fl (6.2-12.0); Monocyte# 0.61 X10^3/uL; Monocyte% 8.1 % (0-10); NRBC Flagged by Analyzer 0 % (0-5); Neutrophil % 57.3 % (47-70); Platelet Count 397 K/mm3 (150-450); RBC Distribution Width SD 48.8 fl (35.1-43.9); Red Blood Count 5.11 M/mm3 (4.2-5.4); White Blood Count 7.5 K/mm3 (4.4-11.0)
[2022-01-07 12:30] LABS: Color, Urine Yellow (Yellow); Glucose, Dipstick Normal (Normal); Ketone-Dipstick Negative (Negative); Leukocyte Esterase-Dipstick 500 /ul (Negative); Nitrite-Dipstick Negative (Negative); Occult Blood-Urine 10 /ul (Negative); Protein-Dipstick Negative (Negative); Urine Bilirubin Dipstick Negative (Negative); Urine Clarity Sl. Cloudy (Clear); Urine Urobilinogen Normal (Normal); Urine pH 6.5 (5.0 - 8.0)
[2022-01-07 12:42] LABS: Bacteria 1+ /hpf (None Seen); Red Blood Cells-Urine 0-5 SEEN /hpf (0-5); Squamous Epithelial Cells - UA 0-5 SEEN /hpf (5-10); White Blood Cells 25-50 SEEN /hpf (0-5)
[2022-01-07 12:51] LABS: ALB/GLOB Ratio 0.7 RATIO (0.9-2.4); AST(SGOT) 21 U/L (15-37); Alanine Aminotransfer ALT/SGPT 29 U/L (13-56); Albumin, Serum 3.4 g/dL (3.2-5.0); Alkaline Phosphatase 122 U/L (45-117); Amylase 41 U/L (25-115); Anion Gap 4 (5-15); BUN 16 mg/dL (7-18); BUN/Creat Ratio 17.4 RATIO (10-20); Calcium,Total 9.6 mg/dL (8.5-10.1); Chloride 99 mmol/L (98-107); Cholesterol 174 mg/dL (200); Creatinine, Serum 0.92 mg/dL (0.55-1.02); EST Glomerular Filtration Rate 68 mL/min (>60); Est Glom Filt Rate - Afr Amer 82 mL/min (>60); Globulin 4.6 g/dL (2.2-4.2); Glucose 102 mg/dL (74-106); High Density Lipoprotein 42 mg/dL; Lipase 103 U/L (73-393); Potassium 4.1 mmol/L (3.5-5.1); Sodium Level 138 mmol/L (136-145); Triglycerides 131 mg/dL; Very Low Density Lipoprotein 26 mg/dL (5-40)
== END | disposition home or self-care (01) ==
LOC: BIMLAB 10:13
PROVIDERS: Physician Assistant; PCP Internal Medicine; Visit Provider Nurse Practitioner Family
DX: R39.9 Unspecified symptoms and signs involving the genitourinary system (principal); R10.9 Unspecified abdominal pain
CPT/HCPCS: 85025; 87086; 83690; 36415; 80053; 80061; 82150; 81001

== ENCOUNTER → 2022-01-13 | Outpatient (CLI) | payer MEDICAID, SELFPAY ==
[2022-01-13 10:04] LABS: Bacteria 0 SEEN /hpf (None Seen); Mucous, Urine 0 SEEN /hpf (<or=2+); Red Blood Cells-Urine 0 SEEN /hpf (0-5); White Blood Cells 0 SEEN /hpf (0-5)
[2022-01-13 12:13] LABS: Color, Urine Yellow (Yellow); Glucose, Dipstick Normal (Normal); Ketone-Dipstick Negative (Negative); Leukocyte Esterase-Dipstick Negative /ul (Negative); Nitrite-Dipstick Negative (Negative); Occult Blood-Urine Negative /ul (Negative); Protein-Dipstick Negative (Negative); Urine Bilirubin Dipstick Negative (Negative); Urine Clarity Sl. Cloudy (Clear); Urine Urobilinogen Normal (Normal); Urine pH 6.5 (5.0 - 8.0)
[2022-01-13 12:16] LABS: Absolute Lymphocyte Count 2.46 X10^3/uL (0.83-4.51); Absolute Neutrophil Count 4.4 X10^3/uL (2.0-7.7); Basophil# 0.05 X10^3/uL; Basophil% 0.6 % (0-1); Eosinophil# 0.13 X10^3/uL; Eosinophils% 1.7 % (0-5); Hematocrit 45.6 % (37-47); Hemoglobin 14.4 g/dL (12.0-15.0); Lymphocyte # 2.46 X10^3/ul (0.83-4.51); Lymphocyte % 31.3 % (19-41); Mean Corp Hgb Conc 31.6 g/dL (32-36); Mean Corpuscular Hgb 27.9 pg (27.0-32.0); Mean Corpuscular Volume 88.2 fL (81-99); Mean Platelet Vol. 9.5 fl (6.2-12.0); Monocyte# 0.75 X10^3/uL; Monocyte% 9.6 % (0-10); NRBC Flagged by Analyzer 0 % (0-5); Neutrophil # 4.42 X10^3/uL (2.7-7.7); Neutrophil % 56.3 % (47-70); Platelet Count 375 K/mm3 (150-450); RBC Distribution Width SD 48.6 fl (35.1-43.9); Red Blood Count 5.17 M/mm3 (4.2-5.4); White Blood Count 7.9 K/mm3 (4.4-11.0)
[2022-01-13 12:23] LABS: Squamous Epithelial Cells - UA 0-5 SEEN /hpf (5-10)
[2022-01-13 12:30] LABS: Hemoglobin A1c 6.2 % (3.8-5.6)
[2022-01-13 12:34] LABS: Ferritin 36 ng/mL (8-252); Iron 51 ug/dL (50-170); Iron Binding Capacity,Total 421 ug/dL (250-450)
[2022-01-14 10:16] LABS: Hepatitis A IgM Antibody Negative (Negative); Hepatitis Be Ag Negative (Negative); Transferrin 349 mg/dL (192-364)
[2022-01-14 10:36] LABS: Hepatitis B Core AB IgM Negative (Negative)
== END | disposition home or self-care (01) ==
LOC: BIMLAB 10:03
PROVIDERS: PCP Internal Medicine; Referring Provider Physician Assistant; Visit Provider Physician Assistant
DX: K76.0 Fatty (change of) liver, not elsewhere classified (principal); R10.11 Right upper quadrant pain; E66.9 Obesity, unspecified; F50.89 Other specified eating disorder
CPT/HCPCS: 36415; 81001; 82728; 83036; 83540; 83550; 84466; 85025; 86705; 86709; 87350

== ENCOUNTER → 2022-01-31 | Outpatient (CLI) | payer MEDICAID, SELFPAY ==
--- NOTE | 2022-01-31 13:31 | MRI_ITS ---
STUDY: MRI RIGHT KNEE REASON FOR EXAM: Lateral right knee pain for one month. TECHNIQUE: Standardized fat and water weighted pulse sequences were obtained in all 3 orthogonal planes. COMPARISON: Radiographs 01/22/2022. FINDINGS: There is a small radial tear of the posterior horn of the medial meniscus (T2 coronal image 12; proton-density sagittal series 8 image 17). There is peripheral subluxation of the medial meniscus. There is arthrosis of the medial femorotibial compartment with partial-thickness chondral loss of the medial femoral condyle (T2 sagittal image 11). There is subchondral bone edema of the medial femoral condyle and tibial plateau (T2 coronal images 12-16), a stress phenomenon. There is a sprain of the medial collateral ligament (T2 coronal image 13). Normal distal semimembranosus, gracilis and semitendinosus tendons. There is mild intrasubstance myxoid degeneration of the anterior horn of the lateral meniscus without discrete lateral meniscal tear. Normal hyaline cartilage of the lateral femorotibial compartment. Normal lateral femoral condyle and tibial plateau. Normal proximal tibiofibular articulation. Normal lateral collateral (fibular) ligament. Normal popliteus tendon. Normal biceps femoris tendon. Normal anterior cruciate ligament (ACL). Normal posterior cruciate ligament (PCL). Normal congruent patellofemoral articulation. There is arthrosis of the patellofemoral compartment with chondral thinning of the femoral trochlea (T2 coronal image 15). Normal medial and lateral patellar retinaculum. Normal visualized quadriceps tendon. Normal patellar tendon. Normal Hoffa''s fat pad. There is a moderately large joint effusion. There is edema in the subcutis adipose space. There is mild bone edema in the proximal tibia near the insertion sites of the cruciate ligaments. MRI/Lower Ext Joint Only (Routine) IMPRESSION: Small radial tear of the medial meniscus. Medial collateral ligament sprain. Arthrosis of the medial femorotibial and patellofemoral compartments. Subchondral bone edema of the medial femoral condyle and medial tibial plateau, a stress phenomenon. Joint effusion. Electronically Signed: Vasu Reid MD at 14:59 EDT ,
== END | disposition home or self-care (01) ==
LOC: MRI 13:31
PROVIDERS: PCP Internal Medicine; Visit Provider Orthopaedic Surgery
DX: M25.561 Pain in right knee (principal); M17.11 Unilateral primary osteoarthritis, right knee
CPT/HCPCS: 73721

== ENCOUNTER → 2022-02-05 | Outpatient (CLI) | payer MEDICAID, SELFPAY ==
--- NOTE | 2022-02-05 13:39 | VDLE_ITS ---
Reason For Study: RLE swelling RIGHT GSV is normal. CFV is compressible, spontaneous, phasic, competent and demonstrates normal augmentation. FV is compressible, spontaneous, phasic, competent and demonstrates normal augmentation. POP V is compressible, spontaneous, phasic, competent and demonstrates normal augmentation. T/P Trunk is compressible. PTV is compressible. RT PerV is compressible. Procedure This is a venous duplex using B-mode, color flow and spectral Doppler. Exam performed in department. The study was technically difficult. Due to body habitus. Relied on color doppler vs compressions on RT FV mid/distal. A preliminary report was called and/or faxed to Dr. Bolton @ [phone] @ 2:00 pm. VL/Venous Duplex US, Unilateral Interpretation Summary There is no evidence of right lower extremity deep vein thrombosis. Right great saphenous vein appears patent and compressible segmentally. Technically difficult study is not ed secondary to patient body habitus. The right mid to distal femoral vein was interrogated wit h color Doppler rather than compression. Ordering Physician: Clement Bolton Referring Physician: Sarah Cleaning Performed By: Marla Michael, JOLIE, RVT
== END | disposition home or self-care (01) ==
LOC: CVS 13:38
PROVIDERS: PCP Internal Medicine; Referring Provider Orthopaedic Surgery; Visit Provider Orthopaedic Surgery
DX: M79.661 Pain in right lower leg (principal)
CPT/HCPCS: 93971

== ENCOUNTER 2022-02-25 06:05 | Day surgery (SDC) | payer MEDICAID, SELFPAY ==
[2022-02-25] VITALS (11 sets, daily range): BP systolic 102–137; BP diastolic 66–91; PULSE 72–96; RESP 16–20; TEMP 36.1–37.1; O2SAT 88–97; BMI 53.9
[2022-02-25] MEDS: Lactated Ringers 1,000 ML 15 ML IV (06:52)
[2022-02-25] MEDS: Epinephrine (1 mg/ml) 1 MG/ML VIAL (08:10)
[2022-02-25] MEDS: Lidocaine 1% /Epi 1:100 (20ml) 20 ML Vial (08:11)
[2022-02-25] MEDS: Bupivacaine 0.25% 30 ML Vial (08:12)
[2022-02-25] MEDS: MethylPREDNISolone Acetate 80 MG/ML Vial (08:13)
--- NOTE | 2022-02-25 08:17 | PCM.HP.BLA ---
History and Physical [facility] [place] [address] OFFICE VISIT Date of Service:? 02/05/22 MR#: [id number] Acct: [id number] Name:MARY HARMON Rep #: [id number] : 1965 ? ? Provider: Dr. Clement Bolton, DO Age/Sex:? 56/F ? ? 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[employer] Swamp Required: No Allergies Penicillins Allergy (Unknown, Verified 02/05/22 11:31) UnknownSulfa (Sulfonamide Antibiotics) Allergy (Unknown, Verified 02/05/22 11:31) Unknown Medications Lactobacillus rhamnosus GG 15 billion cell sprinkle capsule (Culturelle) 1 cap PO DAILY #90 caps 11/15/19 [Rx Confirmed 02/05/22] montelukast 10 mg tablet 10 mg PO QPM #90 tabs 05/29/20 [Rx Confirmed 02/05/22] Bariatric shower chair #1 ea 06/26/20 [Rx Confirmed 02/05/22] bupropion HCl 300 mg 24 hr tablet, extended release 300 mg PO DAILY 08/28/20 [History Confirmed 02/05/22] duloxetine 60 mg capsule,delayed release 60 mg PO DAILY 08/28/20 [History Confirmed 02/05/22] amlodipine 5 mg tablet 5 mg PO DAILY #90 tabs 03/08/21 [Rx Confirmed 02/05/22] miconazole nitrate 2 % topical powder (Zeasorb AF) 1 applic topical BID #71 grams 03/08/21 [Rx Confirmed 02/05/22] Nebulizer #1 ea 03/14/21 [Rx Confirmed 02/05/22] tiotropium bromide 2.5 mcg/actuation mist for inhalation (Spiriva Respimat) 2 puff inhalation QDAY #1 ea 03/14/21 [Rx Confirmed 02/05/22] nystatin 100,000 unit/mL oral suspension 5 ml PO Q6H #250 mL 04/04/21 [Rx Confirmed 02/05/22] pravastatin 40 mg tablet 40 mg PO DAILY #90 tabs 05/23/21 [Rx Confirmed 02/05/22] cyclobenzaprine 10 mg tablet 10 mg PO BID PRN muscle spasm #30 tabs 09/10/21 [Rx Confirmed 02/05/22] budesonide-formoterol HFA 160 mcg-4.5 mcg/actuation aerosol inhaler (Symbicort) 2 puff inhalation BID #1 ea 09/11/21 [Rx Confirmed 02/05/22] fluticasone propionate 50 mcg/actuation nasal spray,suspension 2 spray intranasal DAILY #9.9 mL 09/17/21 [Rx Confirmed 02/05/22] loratadine 10 mg capsule 10 mg PO QDAY #90 caps 09/17/21 [Rx Confirmed 02/05/22] 3 in 1 commode #1 ea 10/11/21 [Rx Confirmed 02/05/22] cholecalciferol (vitamin D3) 1,250 mcg (50,000 unit) capsule 1,250 mcg PO QWEEK #12 caps 12/03/21 [Rx Confirmed 02/05/22] levothyroxine 150 mcg tablet 150 mcg PO DAILY #30 tabs 12/03/21 [Rx Confirmed 02/05/22] pantoprazole 40 mg tablet,delayed release 40 mg PO BID #180 tabs 12/03/21 [Rx Confirmed 02/05/22] albuterol sulfate 2.5 mg/3 mL (0.083 %) solution for nebulization 2.5 mg (3 mL) inhalation Q4H PRN shortness of breath or wheezing #180 mL 12/06/21 [Rx Confirmed 02/05/22] albuterol sulfate 90 mcg/actuation aerosol inhaler (Ventolin HFA) 2 puff inhalation Q4H PRN shortness of breath or wheezing #18 grams 12/06/21 [Rx Confirmed 02/05/22] escitalopram oxalate 20 mg tablet 20 mg PO DAILY #30 tabs 12/06/21 [Rx Confirmed 02/05/22] melatonin 3 mg tablet 3 mg PO DAILY 12/18/21 [History Confirmed 02/05/22] ciprofloxacin HCl 250 mg tablet 250 mg PO BID urinary tract infection #10 tabs 01/07/22 [Rx Confirmed 02/05/22] ibuprofen 200 mg tablet 400 mg PO Q6H PRN pain #200 tabs 01/08/22 [Rx Confirmed 02/05/22] dc (Ultra-Light Rollator misc) #1 ea 01/22/22 [Rx Confirmed 02/05/22] hydrochlorothiazide 25 mg tablet 25 mg PO QAM #90 tabs 01/31/22 [Rx Confirmed 02/05/22] PFSH Medical History? Acute otitis externa Anemia Arthritis Bilateral lower extremity edema Bilateral lower extremity edema Cervical radiculopathy Chronic back pain Continuous tobacco abuse COPD (chronic obstructive pulmonary disease) COVID-19 Depression with anxiety Environmental allergies Epigastric pain Fatigue GERD (gastroesophageal reflux disease) Hyperlipidemia Hypertension Hypothyroidism Intertrigo Microscopic hematuria Migraines Morbid obesity Pain of left mastoid Sleep-related breathing disorder UTI (urinary tract infection) Surgical History? H/O left knee surgery Hx of tubal ligation S/P removal of ovarian cyst S/P thyroid biopsy Family History? Mother Depression Stomach cancer COPD (chronic obstructive pulmonary disease) Asthma Hypertension Thyroid disorderFather Heart disease Myocardial infarction Hypertension COPD (chronic obstructive pulmonary disease) CVA (cerebral vascular accident) Diabetes LupusDaughter Asthma Heart disease Thyroid disorderDaughter Asthma Depression Social History?(Updated 01/13/22 @ 09:50 by IRENE Reynoso) household members:? none Smoking Status:? Current every day smoker tobacco type: cigarettes second hand exposure:? Yes alcohol intake:? never substance use type:? does not use what type of physical activity do you participate in:? none HPI RIGHT KNEE Details: Parts of this documentation were recorded by a scribe, this documentation accurately reflects the service provided and the decisions made by me, Dr. Clement Bolton, DO 02/05/22821. MARY AVILA is a 56 year old F here today for follow up from MRI on right knee. Patient states that her right knee pain has gotten worse. Patient states that the pain in the right knee is a 9 on the pain scale right now and is sharp constant pain. Patient states nothing she has done helps with the pain and affecting her driving now. Ortho Exam General General: Yes no acute distress and No well groomed (dirty) Neurologic: Yes alert and Yes oriented x3 Psychologic: Yes reasonable and appropriate Right Knee Skin/Wound: No erythema, No ecchymosis and Yes swelling Homans Sign: No 1+: Effusion (mild) Knee ROM: Yes ROM-Extension -20 to 0 (-10) and Yes ROM-Flexion 0-140 (88) Examination: Yes Med jt line tenderness Stability: NML: Anterior Drawer, NML: Posterior Drawer, NML: Valgus 0, NML: Valgus 30, NML: Varus 0 and NML: Varus 30 Patella Grind: Yes KNEE: ttp calf. swelling into leg and foot. pain in calf with ankle range of motion. Supplemental Info 03/25/2022 MRI right knee : small radial tear of the medial meniscus.? Medial collateral ligament sprain. Arthrosis of the medial femorotibial and patellofemoral compartments. Subchondral bone edema of the medial femoral condyle and medial tibial? plateau, a stress phenomenon.? Coding Level of Care Code Off vis,est,level 3 Assessment and Plan Assessment and Plan ? ? ? Orders: Orders Venous Duplex US, Unilateral Today M79.661 - Pain in right lower leg ? Plan Details Additional Comments: Spoke with the patient about the results of her MRI. Explained she may have a knee arthroscopy but she might continue to have pain due to her osteoarthritis. Spoke with her about the risks of the surgery.? She needs to have a doppler of her right leg to rule out blood clot.? She will need to stop her ibuprofen 7 days prior to her surgery. Reviewed the pre-operative plans with the patient. Risks and benefits of the procedure were fully explained, including but not limited to infection, neurovascular injury, continued pain, arthritis, stiffness, need for further surgery, re-injury, DVT, PE, general risks of anesthesia, and loss of limb or life. The patient understands all the risks and does wish to proceed with written consent. Once she gets the result of her doppler, if it is negative, she may have her surgery. Follow up for 2 week post op or sooner if pain, swelling, numbness or associated symptoms, or concerns develop.? All questions answered. Patient in agreement of plan. Goals & Barriers: Goals Decrease pain and spasm Decrease inflammation Barriers Obesity 02/05/22 1246 <Electronically signed by Clement Bolton DO> Date Clement Garcia Signature: Date (if applicable) ? CC: ? ~I have re-examined the patient. There are no clinical changes since date of exam
--- NOTE | 2022-02-25 08:31 | OP.PCM_ITS ---
Operative Report Date of Procedure: 02/25/22 Preop diagnosis: Right knee DJD medial meniscus tear Postoperative diagnosis: Right knee high grade 3 approaching grade IV chondromalacia medial femoral condyle and trochlea, degenerative radial and horizontal tearing body and horn posterior and anterior medial meniscus small anterior horn radial tear lateral meniscus, hypertrophic synovitis Procedure: Right knee arthroscopic partial medial partial lateral meniscectomy chondroplasty and tricompartment synovectomy Anesthesia: General Estimated blood loss: 5 mL Tourniquet time: 27 minutes 300 mmHg Complications: none Indication for procedure: 56-year-old morbidly obese female with chronic knee pain failed conservative treatment including injections with MRI evidence of DJD and medial meniscus tear the patient did wish to proceed with an elective arthroscopic surgery to attempt to alleviate the symptoms. Risk benefits and alt ernatives of the procedure were reviewed including risk of bleeding infection nerve artery tissue damage need for further surgery continued pain and expected postoperative course. Procedure: The patient was met in the preoperative holding area. The operative extremity was identified by both patient and physician and family and marked. Patient was brought back to the operating room on a wheeled cart and transferred to the operating table in the supine position. Anesthesia was started. A well- padded tourniquet was placed on the operative extremity. A lower extremity leg medina was secured to the operative extremity. The contralateral extremity was well-padded and the end of the bed was flexed to 90 degrees. The patient was prepped and draped in the usual sterile fashion. A timeout was called to ensure the proper patient, procedure, and extremity were being contemplated. 0.5% Marcaine with epinephrine was injected into the planned incisional areas under the skin only. An Esmarch was used to exsanguinate the extremity and the tourniquet was inflated. An 11 blade scalpel was used to make a stab incision in the anterior lateral portal. The arthroscope was inserted into the in tercondylar notch and inflow and outflow tubes were attached. Arthroscopic visualization began. The medial compartment was entered. An 18-gauge spinal needle was used to establish the placement for anterior medial portal. An 11 blade scalpel was used to make a stab incision. Blunt probe was inserted followed by a meniscal probe. There is noted to be hypertrophic synovitis throughout the knee as well as degenerative tearing of the medial meniscus posterior horn body and anterior horn with use of arthroscopic biting instruments shaver and an ArthroCare wand a partial medial meniscectomy was performed the shaver was used to perform a tricompartmental synovectomy as to allow for visualization the ACL was found to be intact. The lateral compartment was entered noted to be a small radial tear of the anterior horn of the lateral meniscus and softening of the cartilage and mild fibrillation a partial anterior horn lateral meniscectomy was performed the arthroscope was switched to the me dial portal to complete the procedure. The medial and lateral gutters were inspected and were free of loose bodies. The patellofemoral joint was inspected grade 3 approaching grade 4 changes of the trochlea as well as the undersurface of the patella. There was good patellar tracking. The knee was thoroughly irrigated and drained. An intra-articular injection with 5 cc 0.5% Marcaine plain and 40 mg of Depo-Medrol was injected intra-articularly. The arthroscope was removed the portals were closed with 3-0 nylon arthroscopic stitches. Followed by Xeroform 4 x 4's ABDs web roll and an Miguel wrap. The tourniquet was let down and the drapes were removed. All counts were correct. The patient was brought back to the PACU in stable condition.
--- NOTE | 2022-02-25 08:37 | DCINST_ITS ---
Discharge Instructions Dressing / Incision Additional Dressing/Incision Instructions:: Ice and elevate next 72 hours .keep dressing on clean and dry for 48 hours then may remove begin showering daily but do not submerge in tub or pool. After shower may apply Band-Aids . Encourage knee range of motion weightbearing as tolerated, use crutches until confident in knee then may discontinue. No strenuous activity. When not ambulating keep iced and elevated next 72 hours. Do not mix pain medication with recreational drugs or alcohol only take as prescribed can be addictive and abusive, call with any questions or concerns. Follow Up Care Please Follow Up With: Clement Bolton DO When: 2 weeks Test Results: Test results from this visit will be discussed in further detail at your follow- up appointment, if applicable. Discharge Plan Admission Attending Provider: Clement Bolton Primary Care Provider: Sarah Cleaning Discharge Orders/Prescriptions Prescriptions: New oxycodone 5 mg tablet 5 - 10 mg PO Q4H PRN (Reason: pain) 5 Days Qty: 30 0RF No Action Culturelle 15 billion cell capsule, sprinkle 1 cap PO DAILY Qty: 90 0RF montelukast 10 mg tablet 10 mg PO QPM Qty: 90 0RF amlodipine 5 mg tablet 5 mg PO DAILY Qty: 90 3RF Spiriva Respimat 2.5 mcg/actuation mist 2 puff inhalation QDAY Qty: 1 6RF Rx Instructions: administer at approximately the same time(s) each day (DME) Nebulizer See Rx Instructions .ROUTE .MEDSUPPLY Qty: 1 0RF Rx Instructions: As directed cyclobenzaprine 10 mg tablet 10 mg PO BID PRN (Reason: muscle spasm) Qty: 30 0RF fluticasone propionate 50 mcg/actuation spray,suspension 2 spray INTRANASAL DAILY Qty: 9.9 3RF Rx Instructions: administer into each nostril loratadine 10 mg capsule 10 mg PO QDAY Qty: 90 3RF melatonin 3 mg tablet 3 mg PO QHS albuterol sulfate [Ventolin HFA] 90 mcg/actuation HFA aerosol inhaler 2 puff INHALATION Q4H PRN (Reason: shortness of breath or wheezing) Qty: 18 6RF albuterol sulfate 2.5 mg /3 mL (0.083 %) solution for nebulization 2.5 mg INHALATION Q4H PRN (Reason: shortness of breath or wheezing) Qty: 180 3RF bupropion HCl 300 MG tablet extended release 24 hr 300 mg PO DAILY duloxetine 60 MG capsule,delayed release(DR/EC) 60 mg PO DAILY escitalopram oxalate [Lexapro] 20 mg tablet 20 mg PO DAILY (DME) Bariatric shower chair See Rx Instructions .Route .MEDSUPPLY Qty: 1 0RF Rx Instructions: As directed pravastatin 40 mg tablet 40 mg PO DAILY Qty: 90 3RF budesonide-formoterol [Symbicort] 160-4.5 mcg/actuation HFA aerosol inhaler 2 puff INHALATION BID Qty: 1 6RF Rx Instructions: administer with spacer, rinse mouth after each use (DME) 3 in 1 commode See Rx Instructions .Route .MEDSUPPLY Qty: 1 0RF Rx Instructions: As directed levothyroxine 150 mcg tablet 150 mcg PO DAILY Qty: 30 2RF pantoprazole 40 mg tablet,delayed release (DR/EC) 40 mg PO BID Qty: 180 1RF cholecalciferol (vitamin D3) 1,250 mcg (50,000 unit) capsule 1,250 mcg PO QWEEK Qty: 12 4RF ibuprofen 200 mg tablet 400 mg PO Q6H PRN (Reason: pain) Qty: 200 0RF (DME) Ultra-Light Rollator Misc See Rx Instructions .Route Qty: 1 0RF Rx Instructions: As directed hydrochlorothiazide 25 mg tablet 25 mg PO QAM Qty: 90 1RF Referrals / Follow Up: Sarah Cleaning MD [Primary Care Provider] - Disposition Disposition (needs filled in before D/C Order can be placed): Home, Self Care
[2022-02-25] MEDS: Ipratropium/Albuterol Sulfate 3 ML AMPUL.NEB INHALATION (10:00)
== END 2022-02-25 11:13 | disposition home or self-care (01) ==
LOC: SDC 06:07 → AC 06:08
PROVIDERS: PCP Internal Medicine; Referring Provider Orthopaedic Surgery; Visit Provider Orthopaedic Surgery
PROC: (CPT 29870; principal; 2022-02-25 07:10)
DX: M23.221 Derangement of posterior horn of medial meniscus due to old tear or injury, right knee (principal); J44.9 Chronic obstructive pulmonary disease, unspecified; E66.01 Morbid (severe) obesity due to excess calories; Z68.43 Body mass index [BMI] 50.0-59.9, adult; M23.211 Derangement of anterior horn of medial meniscus due to old tear or injury, right knee; M23.241 Derangement of anterior horn of lateral meniscus due to old tear or injury, right knee; X58.XXXA Exposure to other specified factors, initial encounter; G89.29 Other chronic pain; M17.11 Unilateral primary osteoarthritis, right knee; M94.261 Chondromalacia, right knee; M65.861 Other synovitis and tenosynovitis, right lower leg; I11.9 Hypertensive heart disease without heart failure; I25.2 Old myocardial infarction; E03.9 Hypothyroidism, unspecified; E78.5 Hyperlipidemia, unspecified; F32.A Depression, unspecified; F41.9 Anxiety disorder, unspecified; F17.210 Nicotine dependence, cigarettes, uncomplicated; Z79.891 Long term (current) use of opiate analgesic; Z79.899 Other long term (current) drug therapy; Z86.73 Personal history of transient ischemic attack (TIA), and cerebral infarction without residual deficits; Z86.16 Personal history of COVID-19
CPT/HCPCS: 29880; 01400; 94640; J7120; J2405

== ENCOUNTER → 2022-04-15 | Outpatient (CLI) | payer MEDICAID, SELFPAY ==
--- NOTE | 2022-04-15 11:50 | RAD_ITS ---
INDICATION: BILAT HIP PAIN EXAMINATION/TECHNIQUE: X-RAY - XR Hips Bilateral with Pelvis when performed; 2 Views: AP view pelvis with AP and lateral views bilateral hips COMPARISON: Pelvis and hip radiographs from 03/04/2018 FINDINGS: PELVIC BONES: No displaced fracture or suspicious osseous lesion demonstrated. Note that overlapping bowel shadows may however obscure fine detail. Sacroiliac joints are unremarkable. No widening of the pubic symphysis. HIPS: The articular structures are unremarkable. Symmetric and adequately aligned bilateral hips with preserved joint spaces. No fracture or suspicious osseous lesion. SOFT TISSUES: No soft tissue swelling or gas. RAD/Hips B/L min 2 views w/ Pelvis IMPRESSION: Negative pelvis and bilateral hips. Electronically Signed: James Cohen MD at 0:03 EDT ,
--- NOTE | 2022-04-15 11:50 | RAD_ITS ---
INDICATION: Dorsalgia, unspecified Lumbar region EXAMINATION/TECHNIQUE: X-RAY - XR Spine Lumbar 2 or 3 Views COMPARISON: Lumbar spine radiographs from 08/27/2020 FINDINGS: VERTEBRAE: Preserved vertebral body heights. No fracture or suspicious osseous lesion demonstrated. No spondylolisthesis. Preservation of the normal lumbar lordosis. Chronic L5-S1 degenerative facet arthropathy. DISCS: Stable mild degenerative disc space narrowing at L5-S1. INCLUDED ABDOMEN: Included bowel gas pattern is non-obstructive. Aortoiliac atherosclerotic calcifications noted. RAD/Lumbar Spine 2 or 3 Views IMPRESSION: Stable mild lower lumbar spondylosis. Electronically Signed: James Cohen MD at 0:05 EDT ,
[2022-04-15 12:09] LABS: Amphetamine Urine VISTA NEGATIVE (<1000 ng/mL); Barbiturate Urine VISTA NEGATIVE (< 200 ng/mL); Benzodiazepine Urine VISTA NEGATIVE (< 200 ng/mL); Cocaine Urine VISTA NEGATIVE (< 300 ng/mL); Ecstacy Urine VISTA NEGATIVE (< 500 ng/mL); Methadone Urine VISTA NEGATIVE (< 300 ng/mL); PCP Urine VISTA NEGATIVE (< 25 ng/mL); THC Urine VISTA NEGATIVE (< 50 ng/mL); Vista UDS pH Range 7
== END | disposition home or self-care (01) ==
PROVIDERS: PCP Internal Medicine; Referring Provider Anesthesiology Pain Medicine; Visit Provider Anesthesiology Pain Medicine
DX: F11.20 Opioid dependence, uncomplicated (principal); M25.551 Pain in right hip; M25.552 Pain in left hip; M54.15 Radiculopathy, thoracolumbar region
CPT/HCPCS: 72100; 73521; 80307

== ENCOUNTER 2022-04-17 14:00 | Outpatient (RCR) | payer MEDICAID, SELFPAY ==
--- NOTE | 2022-04-02 15:14 | HP.PTEVAL_ITS ---
Patient's Visit Information MARY AVILA is a 56 year old F referred to Physical Therapy by Dr. Clement Bolton DO with a diagnosis of UNILATERAL PRIMARY OA RIGHT KNEE ,UNILATERAL PRIMARY OA LEFT KNEE. Date of Evaluation: 04/02/22 Physical Therapist: Matthew Deluna, PT, Cert MDT, OCS - Visit Plan Frequency: 2x /Week Duration: 4 Weeks Plan: PT INTERVETIONS ROM/FLEXABILITY BLE,GRADED STRENGTHENING QUADS/HAMS/HIP,NUSTEP ,FUNCTIONAL STRENGTHENING AND MODALTIES PRN. ( COULD BENEFIT FROM ROLLATOR) - Subjective This 56 y/o female presents to physical therapy for bilateral DJD. Patient most recently right knee arthroscopy meniscectomy/chondroplasty 02/25 at [facility] by Rosana . Patient was d/c same DOS with crutches . Seen Dr recently recommended PT due to pain and weakness. Patient also had left knee arthroscopic ~ 2months. Prior PT tried cortisone and had MRI showing tear meniscus. Pain located medial knee. Aggravating factors walking/standing ~ 2 mins then needs to sit. Unable to squat /kneeling. Patient has difficulty with stairs one step at time. Patient uses cane . Patient did had rollator and needs another because lost it. Patient denies paresthesia /tingling. Patient has difficulty sleeping. Patient has difficulty with ADLS' and housework tasks. Patient has decrease endurance. Patient condition affects QOL and function, Patient plans to see pain management. Patient could benefit from rollator. SOCIAL: Lives with daughter ,Patient lives in [facility] with [facility] . Patient has walk in shower no chair. Patient is able dress and and bath. Daughter does cooking and cleaning. Patient uses scooter when shopping. VOCATION: disablity - Pain Right Knee Pain Intensity (Out of 10): 10 Left Knee Pain Intensity (Out of 10): 8 Pain Intensity Range: 10 - Objective POSTURE: mild forward posture knees flexed. GAIT: ambulates with unsteady gait antalgic gait knee flexed slow treasure reciprocal pattern wide DERIAN ~ 20 ft ( came back to PT dept in rollator). NEURO: denies paresthesia/tingling. PALAPTION: medial /lateral tender right knee > left. EDEMA: 1+ BLE. AROM: right supine knee flexion 30 -85 degrees ,left supine knee flexion 30- 120 degrees. MMT: ( peak force) right quads 10.2,hamstrings 11.2 left quads 14.8 ,hamstrings 15.2 ,hip [id number] ,hip abduction 10.7 - Special Tests R Knee Shell - ACL: Negative R Knee Valgus - MCL: Negative R Knee Varus - LCL: Negative R Knee Patellar Apprehension - PFS: Negative R Knee Patellar Grind - PFS: Negative L Knee Valgus - MCL: Negative L Knee Varus - LCL: Negative L Knee Patellar Apprehension - PFS: Negative L Knee Patellar Grind - PFS: Negative - Balance/Special Test Scores Lower Extremity Functional Score: 16 - Goals Goal 1:: I with HEP for bilateral knees Goal Time Frame: 4-6 Weeks Goal 2:: Patient improve quality of gait with less antalgic gait for in house ambulation 150 ft > ( recommend rollator) Goal Time Frame: 4-6 Weeks Goal 3:: Patient to demonstrate 40% improvement with improve function with less pain Goal Time Frame: 4-6 Weeks Goal 4:: Patient to improve AROM bilateral knee by 5-10 degrees to improve function and stairs Goal Time Frame: 4-6 Weeks Goal 5:: Patient to improve peak force of quads/hams/hip by 5 -10 to improve gait Goal Time Frame: 4-6 Weeks Goal 6:: Patient to improve LFES score by 5-10 points to improve QOL function Goal Time Frame: 4-6 Weeks - Rehabilitation Potential Physical Therapy Diagnosis: This patient has bilateral knee pain and had bilateral knee arthroscopic right knee most recently and had left arthroscopic ~ 3 months ago with pain ,decrease ROM ,weakness ,thus impairs gait ,and ADLS and comrbities influences condition thus benefit from skilled PT Rehabilitation Potential: Fair - Anticipated Interventions Patient/Client Instruction: Educate patient on: Condition, Plan of Care For the Purpose of:: To decrease pain, To improve nutrient delivery to tissue, To improve ability to perform ADL's, To increase tolerance to activity/condition/position, To improve performance and independence with ADL's, To improve ability of physical actions for home/community/work/leisure, To improve gait and locomotor functions, To improve health of tissue, To decrease soft tissue restriction, To increase flexibility/ROM, To improve endurance, To improve balance, To improve safety with gait, To improve tolerance to ADL's Therapeutic Exercise to Include: Strength training, Endurance training, Balance training, Flexibilty training, Passive ROM, Active ROM Comment: QUADS/HAMS/HIP For the Purpose of:: To decrease pain, To increase ROM, To improve muscle performance and motor function, To improve ability to perform ADL's, To increase tolerance to activity/condition/position, To improve performance and independence with ADL's, To improve gait and locomotor functions, To improve health of tissue, To decrease soft tissue restriction, To increase flexibility/ROM, To improve endurance, To improve balance, To improve safety with gait, To assume or resume ADL's, To reduce risk of recurrence, To improve tolerance to ADL's TENS: Yes IF ES: Yes Cryotherapy (ice pack, ice massage): Yes Thermo therapy (hot pack): Yes Ultrasound (thermal/non thermal): Yes For the Purpose of:: To decrease pain, To increase ROM, To improve nutrient delivery to tissue, To increase oxygenation perfusion, To improve health of tissue, To decrease soft tissue restriction Thank you for the opportunity to evaluate your patient. For Medicare and Medicare HMO plans, please review the plan of care and approve it. It will need to be FAXED BACK to us at [phone] for Medicare purposes. For Medicare only, by signing this I certify the plan of care. Please let me know if there are questions or concerns regarding this plan of care. Physician Signature: Date:
== END 2022-04-17 19:00 | disposition home or self-care (01) ==
LOC: PT 14:00
PROVIDERS: PCP Internal Medicine; Referring Provider Orthopaedic Surgery; Visit Provider Orthopaedic Surgery
DX: M17.0 Bilateral primary osteoarthritis of knee
CPT/HCPCS: 97110; 97162

== ENCOUNTER → 2022-06-10 | Outpatient (CLI) | payer MEDICAID, SELFPAY | END | disposition home or self-care (01) | LOC: LABSPEC 16:04 | PROVIDERS: PCP Internal Medicine; Referring Provider Nurse Practitioner Family; Visit Provider Nurse Practitioner Family | DX: J06.9 Acute upper respiratory infection, unspecified (principal) | CPT/HCPCS: 87635; 87633; U0003; U0005 ==

== ENCOUNTER 2022-06-24 15:09 | Outpatient (CLI) | payer MEDICAID, SELFPAY ==
--- NOTE | 2022-06-24 15:16 | CT_ITS ---
STUDY: CTA CHEST REASON FOR EXAM: Female, 56 years old. R/O - PE SOB, Cough, Tachycardia RADIATION DOSAGE (If Supplied By Facility): CTDIvol = ( 12.66 ) mGy, DLP = ( 470.20 ) mGycm TECHNIQUE: The examination was performed with the intravenous administration of IV 100mL [id number]-[id number]. Post-processing of the angiographic images was performed, with multiplanar reformation and 3D reconstruction. Individualized dose optimization techniques were used for this CT. COMPARISON: April 11, 2021 FINDINGS: Normal enhancement of the main pulmonary artery and right and left pulmonary arteries. Normal enhancement of the bilateral peripheral pulmonary arteries. There is no demonstrated pulmonary embolism. Normal thoracic aorta and visualized great vessels. There is no demonstrated aortic dissection. Normal heart and pericardium. Small right hilar calcified nodes and mediastinal nodes. Normal visualized trachea and bronchi. The lungs are well expanded. Minor diffuse interstitial thickening with emphysematous changes. Tiny calcified granuloma in the left upper lobe and right upper lobe. Normal pleura. Small subcentimeter bilateral axillary nodes.. Dorsal spine demonstrates mild spondylosis. Tiny granulomas calcifications within the spleen. CT/CTA Chest W/WO Contrast IMPRESSION: Mild diffuse interstitial and emphysematous changes and old granulomatous disease. No acute infiltration. No evidence for pulmonary embolus Electronically Signed: Wes Gilman MD at 17:00 EST ,
== END 2022-06-24 23:59 | disposition home or self-care (01) ==
LOC: CT 15:10
PROVIDERS: PCP Internal Medicine; Visit Provider Physician Assistant
DX: R06.02 Shortness of breath (principal); J44.9 Chronic obstructive pulmonary disease, unspecified; R07.9 Chest pain, unspecified; R00.2 Palpitations; R05.9 Cough, unspecified
CPT/HCPCS: 71275; Q9967

== ENCOUNTER → 2022-06-24 | Outpatient (CLI) | payer MEDICAID, SELFPAY ==
[2022-06-24 14:18] LABS: Absolute Lymphocyte Count 2.92 X10^3/uL (0.83-4.51); Absolute Neutrophil Count 2.5 X10^3/uL (2.0-7.7); Basophil# 0.05 X10^3/uL; Basophil% 0.8 % (0-1); Eosinophil# 0.07 X10^3/uL; Eosinophils% 1.1 % (0-5); Hematocrit 47.7 % (37-47); Lymphocyte # 2.92 X10^3/ul (0.83-4.51); Lymphocyte % 47.4 % (19-41); Mean Corp Hgb Conc 31.4 g/dL (32-36); Mean Corpuscular Hgb 28.2 pg (27.0-32.0); Mean Corpuscular Volume 89.8 fL (81-99); Mean Platelet Vol. 9.9 fl (6.2-12.0); Monocyte% 9.7 % (0-10); NRBC Flagged by Analyzer 0 % (0-5); Neutrophil % 40.7 % (47-70); Platelet Count 337 K/mm3 (150-450); RBC Distribution Width CV 15.9 % (11.6-14.6); RBC Distribution Width SD 52.5 fl (35.1-43.9); Red Blood Count 5.31 M/mm3 (4.2-5.4); White Blood Count 6.2 K/mm3 (4.4-11.0)
[2022-06-24 14:34] LABS: Troponin-I HS 11 pg/mL (3.0-54.0)
[2022-06-24 14:38] LABS: D-Dimer Quantitative (DVT/PE) 0.53 FEU/ug/m (0.27-0.49)
[2022-06-24 14:49] LABS: ALB/GLOB Ratio 0.8 RATIO (0.9-2.4); AST(SGOT) 20 U/L (15-37); Alanine Aminotransfer ALT/SGPT 30 U/L (13-56); Albumin, Serum 3.4 g/dL (3.2-5.0); Alkaline Phosphatase 116 U/L (45-117); Anion Gap 4 (5-15); BUN 13 mg/dL (7-18); BUN/Creat Ratio 16.1 RATIO (10-20); Calcium,Total 9.5 mg/dL (8.5-10.1); Chloride 102 mmol/L (98-107); Creatinine, Serum 0.81 mg/dL (0.55-1.02); EST Glomerular Filtration Rate 78 mL/min (>60); Est Glom Filt Rate - Afr Amer 95 mL/min (>60); Globulin 4.2 g/dL (2.2-4.2); Glucose 114 mg/dL (74-106); Potassium 4.1 mmol/L (3.5-5.1); Protein, Total 7.6 g/dL (6.4-8.2); Sodium Level 140 mmol/L (136-145)
== END | disposition home or self-care (01) ==
LOC: BIMLAB 13:48
PROVIDERS: PCP Internal Medicine; Referring Provider Physician Assistant; Visit Provider Physician Assistant
DX: R06.02 Shortness of breath (principal); J44.9 Chronic obstructive pulmonary disease, unspecified; R05.9 Cough, unspecified
CPT/HCPCS: 36415; 80053; 84484; 85025; 85379

== ENCOUNTER → 2022-12-11 | Outpatient (CLI) | payer MEDICAID, SELFPAY ==
[2022-12-11 16:58] LABS: Absolute Lymphocyte Count 2.35 X10^3/uL (0.83-4.51); Absolute Neutrophil Count 5.5 X10^3/uL (2.0-7.7); Basophil# 0.07 X10^3/uL; Basophil% 0.8 % (0-1); Eosinophil# 0.16 X10^3/uL; Eosinophils% 1.8 % (0-5); Hematocrit 46.6 % (37-47); Hemoglobin 14.7 g/dL (12.0-15.0); Lymphocyte # 2.35 X10^3/ul (0.83-4.51); Lymphocyte % 26.9 % (19-41); Mean Corp Hgb Conc 31.5 g/dL (32-36); Mean Corpuscular Hgb 28.8 pg (27.0-32.0); Mean Corpuscular Volume 91.4 fL (81-99); Mean Platelet Vol. 9.8 fl (6.2-12.0); Monocyte# 0.61 X10^3/uL; NRBC Flagged by Analyzer 0 % (0-5); Neutrophil # 5.49 X10^3/uL (2.7-7.7); Neutrophil % 62.9 % (47-70); Platelet Count 378 K/mm3 (150-450); RBC Distribution Width CV 15.3 % (11.6-14.6); RBC Distribution Width SD 50.8 fl (35.1-43.9); White Blood Count 8.7 K/mm3 (4.4-11.0)
[2022-12-11 17:29] LABS: Vitamin B12 257 pg/mL (211-911)
[2022-12-11 17:38] LABS: Hemoglobin A1c 6.2 % (3.8-5.6)
[2022-12-11 17:39] LABS: ALB/GLOB Ratio 0.8 RATIO (0.9-2.4); AST(SGOT) 21 U/L (15-37); Alanine Aminotransfer ALT/SGPT 28 U/L (13-56); Albumin, Serum 3.4 g/dL (3.2-5.0); Alkaline Phosphatase 118 U/L (45-117); Anion Gap 6 (5-15); BUN 18 mg/dL (7-18); BUN/Creat Ratio 22.1 RATIO (10-20); Calcium,Total 9.5 mg/dL (8.5-10.1); Chloride 102 mmol/L (98-107); Cholesterol 190 mg/dL (200); Creatinine, Serum 0.81 mg/dL (0.55-1.02); EST Glomerular Filtration Rate 78 mL/min (>60); Est Glom Filt Rate - Afr Amer 94 mL/min (>60); Globulin 4.5 g/dL (2.2-4.2); Glucose 90 mg/dL (74-106); High Density Lipoprotein 41 mg/dL; Potassium 4.3 mmol/L (3.5-5.1); Protein, Total 7.9 g/dL (6.4-8.2); Sodium Level 138 mmol/L (136-145); Triglycerides 191 mg/dL; Troponin-I HS 13 pg/mL (3.0-54.0); Very Low Density Lipoprotein 38 mg/dL (5-40)
== END | disposition home or self-care (01) ==
LOC: BIMLAB 14:31
PROVIDERS: PCP Internal Medicine; Visit Provider Nurse Practitioner Family
DX: R53.83 Other fatigue (principal); E66.9 Obesity, unspecified; I10 Essential (primary) hypertension; E56.9 Vitamin deficiency, unspecified; L81.9 Disorder of pigmentation, unspecified
CPT/HCPCS: 36415; 80053; 80061; 82306; 82533; 82607; 83036; 84443; 84484; 85025

== ENCOUNTER → 2022-12-13 | Outpatient (CLI) | payer MEDICAID, SELFPAY ==
[2022-12-17 17:07] LABS: Cortisol, Free 24Ur 25 ug/24 hr (6-42); Cortisol, Urinary Free 16 ug/L (Undefined)
== END | disposition home or self-care (01) ==
PROVIDERS: PCP Internal Medicine; Referring Provider Nurse Practitioner Family; Visit Provider Nurse Practitioner Family
DX: L81.9 Disorder of pigmentation, unspecified (principal); R53.83 Other fatigue; E66.9 Obesity, unspecified
CPT/HCPCS: 81050; 82530

== ENCOUNTER → 2023-04-22 | Outpatient (CLI) | payer MEDICAID, SELFPAY ==
[2023-04-22 12:41] LABS: Absolute Lymphocyte Count 2.07 X10^3/uL (0.83-4.51); Absolute Neutrophil Count 5.7 X10^3/uL (2.0-7.7); Basophil# 0.06 X10^3/uL; Basophil% 0.7 % (0-1); Eosinophil# 0.14 X10^3/uL; Eosinophils% 1.6 % (0-5); Hematocrit 45.1 % (37-47); Hemoglobin 14.1 g/dL (12.0-15.0); Lymphocyte # 2.07 X10^3/ul (0.83-4.51); Mean Corp Hgb Conc 31.3 g/dL (32-36); Mean Corpuscular Hgb 29.7 pg (27.0-32.0); Mean Corpuscular Volume 95.1 fL (81-99); Mean Platelet Vol. 9.6 fl (6.2-12.0); Monocyte# 0.65 X10^3/uL; Monocyte% 7.5 % (0-10); NRBC Flagged by Analyzer 0 % (0-5); Neutrophil # 5.69 X10^3/uL (2.7-7.7); Neutrophil % 65.9 % (47-70); Platelet Count 372 K/mm3 (150-450); RBC Distribution Width CV 15.7 % (11.6-14.6); RBC Distribution Width SD 55.1 fl (35.1-43.9); Red Blood Count 4.74 M/mm3 (4.2-5.4); White Blood Count 8.6 K/mm3 (4.4-11.0)
[2023-04-22 14:24] LABS: ALB/GLOB Ratio 0.8 RATIO (0.9-2.4); AST(SGOT) 21 U/L (15-37); Alanine Aminotransfer ALT/SGPT 33 U/L (13-56); Albumin, Serum 3.4 g/dL (3.2-5.0); Alkaline Phosphatase 109 U/L (45-117); Anion Gap 7 (5-15); BUN 12 mg/dL (7-18); BUN/Creat Ratio 13.1 RATIO (10-20); Calcium,Total 9.8 mg/dL (8.5-10.1); Chloride 108 mmol/L (98-107); Cholesterol 174 mg/dL (200); Creatinine, Serum 0.92 mg/dL (0.55-1.02); EST Glomerular Filtration Rate 67 mL/min (>60); Est Glom Filt Rate - Afr Amer 82 mL/min (>60); Globulin 4.5 g/dL (2.2-4.2); Glucose 88 mg/dL (74-106); High Density Lipoprotein 44 mg/dL; Potassium 4.7 mmol/L (3.5-5.1); Protein, Total 7.9 g/dL (6.4-8.2); Sodium Level 143 mmol/L (136-145); Thyroid Stim Hormone (TSH) 0.22 uIU/mL (0.358-3.74); Triglycerides 199 mg/dL; Very Low Density Lipoprotein 40 mg/dL (5-40)
[2023-04-22 18:08] LABS: Hemoglobin A1c 6.4 % (3.8-5.6)
== END | disposition home or self-care (01) ==
LOC: BIMLAB 08:46
PROVIDERS: Visit Provider Nurse Practitioner Family
DX: E78.5 Hyperlipidemia, unspecified (principal); E03.9 Hypothyroidism, unspecified; I10 Essential (primary) hypertension
CPT/HCPCS: 36415; 80053; 80061; 83036; 84443; 85025

== ENCOUNTER → 2023-07-22 | Outpatient (CLI) | payer MEDICAID, SELFPAY ==
--- OUTSIDE RECORDS SUMMARY | 2023-07-22 20:33 | XMS RPT_ITS | CCD ---
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 content not included)... [facility] 04-27-2023 Note HNO ID: [id number] Author: Raiza Salinas RRT Service: ? Author Type: Registered Resp Therapist Type: Progress Notes Filed: 04/27/2023 9:49 AM Note Text: . [facility] 04-27-2023 Note HNO ID: [id number] Author: Raiza Salinas RRT Service: ? Author Type: Registered Resp Therapist Type: Progress Notes Filed: 04/27/2023 9:48 AM Note Text: PULM FUNCTION SMARTBLOCK: Provider: Laquita Pulido MD Spirometry w/BD: 1 DLCO: [address] [facility] 04-27-2023 History of Present illness Narrative Images from the original note were not included. . [facility] Note Patient name: Mary Avila PCP: Anish Roca, VANE Referring Physician: Same Consultation requested by Dr. Roca for an opinion regarding COPD and need for CPAP prescription. My final recommendations will be communicated back to the requesting physician by way of shared Medical record or letter to requesting physician via US mail. CC: Shortness of breath HPI: Mary Avial 57 year old morbidly obese female current 1 pack a day smoker with PMH significant for asthma, COPD, HTN, HLD, hypothyroidism and CHRISTINE on CPAP. Previously followed with pulmonary at [facility] but was discharged from practice due to frequent no-shows and noncompliance. Today she states that she needs a new CPAP machine prescription sent to [facility]. Clarification from the [facility] office states that at the patient was noncompliant with usage of her CPAP so Medicaid would no longer pay for her rental. Therefore, patient was being billed as a private payor but has not been paying her bills so [facility] has been trying to brain picker their equipment. She has combined restriction and obstruction. Symptoms consist of daily cough productive of clear mucus, persistent wheezing especially at night, significant dyspnea on exertion. She was tried on Breztri with improvement in her respiratory status but according to the patient she required a prior authorization through Medicaid so she currently using albuterol alone. She has a history of frequent bronchitis. She started smoking at age 14 and was up to 2 packs a day. She is interested in quitting smoking and is trying to cut back. She has a history of COVID in 2019 as well as 2021 but was not health lysed. DME: [facility] DATA: PFT: PFT today shows combined restriction and obstruction without improvement post-bronchodilator PFT [facility] 09/25/2021: FVC 2.06 L 59% improved 20% postbronchodilator FEV1 1.26 L 46% improved 9% postbronchodilator, FEV1/FVC 61% FEF 25-75% 0.65 L 24% TLC 3.70 L 75% DLCO 16.9 54% DLCO/VA 4.19 108% Labs: CBC shows no polycythemia or eosinophilia Imaging / Diagnostic Studies: 6-minute walk test from [facility] 10/21/2021 showed significant tachycardia with exertion but no desaturation 333 feet over the course of 6 minutes pushing a wheelchair. No recent chest imaging and patient did not get her chest x-ray for today's visit as ordered PAST MEDICAL HISTORY Diagnosis Date Asthma COPD (chronic obstructive pulmonary disease) (HCC) Female stress incontinence HTN (hypertension) Hyperlipemia Hypothyroidism CHRISTINE on CPAP ALLERGIES Allergen Reactions Penicillins Hives Sulfa (Sulfonamide * Hives albuterol (PROVENTIL) 2.5 mg /3 mL (0.083 %) nebulizer solution inhale contents OF 1 (ONE) vial in nebulizer EVERY EIGHT hours NEEDED buPROPion XL (WELLBUTRIN XL) 300 mg 24 hr tablet cholecalciferol, Vitamin D3, (VITAMIN D3) 1,250 mcg (50,000 unit) cap capsule DULoxetine (CYMBALTA) 60 mg capsule hydroCHLOROthiazide 25 mg tablet Take 25 mg by mouth every morning. levothyroxine (SYNTHROID) 175 mcg tablet loratadine (CLARITIN) [address] (PROTONIX) 40 mg tablet pravastatin (PRAVACHOL) 40 mg tablet btqfwbtxniu-zczyrkwyb-lbozitor (TRELEGY ELLIPTA) 100-62.5-25 mcg inhalation powder Inhale 1 Puff as instructed once daily. DULoxetine (CYMBALTA) 20 mg capsule (Patient not taking: Reported on 04/27/2023) varenicline (CHANTIX) 0.5 mg (11)- 1 mg (42) tablet (Patient not taking: Reported on 04/27/2023) Social History Tobacco Use Smoking status: Every Day Packs/day: 1.00 Years: 40.00 Additional pack years: 0.00 Total pack years: 40.00 Types: Cigarettes Smokeless tobacco: Never Tobacco comments: Started smoking at age 14. Up to 2 ppd No occupational exposure history Pets: Dogs, 2 parakeets FAMILY HISTORY Problem Relation Age of Onset COPD Mother Asthma Mother other (CVA) Mother Asthma Father Heart disease Father Heart disease Brother Migraines Brother PAST SURGICAL HISTORY Procedure Laterality Date ARTHROSCOPY KNEE DIAGNOSTIC W/WO SYNOVIAL BX SPX Bilateral OVARIAN CYST LEFT, FLUID THYROID FINE NEEDLE ASPIRATION PMH, Social history, family history and surgical history reviewed and updated in EMR REVIEW OF SYSTEMS: CONSTITUTIONAL: No fevers, chills, nightsweats, unintended weight loss HEENT: Denies nasal congestion/sinus symptoms, allergy problems. EYES: No diplopia or blurry vision. CARDIOVASCULAR: No chest pain, palpitations, orthopnea, PND. Intermittent edema PULM: See HPI GI: No dysphagia/odynophagia, problematic reflux, constipation, diarrhea, changes in stool habits : No urinary complaints, including dysuria, gross hematuria or pyuria. NEURO: No new balance problems, peripheral weakness/paresthesias or numbness of concern. MUSC-SKEL: Bilateral knee pain PSY: No concerns regarding depression, anxiety INTEGUMENTARY: No new skin changes or rashes PHYSICAL EXAMINATION: BP 151/98 Pulse 125 Resp 16 Ht 5' 3.622 (1.62m) Wt 327 lb 9.6 oz (148.6kg) SpO2 96% BMI 56.90 kg/(m^2). General Appearance: Morbidly obese female in wheelchair smells of tobacco. Skin: Skin color, texture, turgor normal, no suspicious rashes or lesions. Head: Normocephalic, no masses, lesions, tenderness or abnormalities. Hirsutism Eyes: Sclera, conjunctiva normal. Oropharynx: Poor dentition. No oral lesions or thrush. Neck: No JVD, no masses, no palpable thyromegaly. Lungs: Not labored, normal to percussion, diminished breath sounds, no wheezes or crackles. Heart: Regular rate and rhythm, tachycardia, no murmurs. Extremities: No significant edema, no clubbing. Musculoskeletal: No joint deformities or effusions. Neurologic: . Lymph Nodes: No cervical lymphadenopathy and No supraclavicular lymphadenopathy. Assessment/Plan: 1. Moderate COPD -Sent in prescription for Trelegy Ellipta. Continue on albuterol as needed -Smoking cessation strongly encouraged -Weight loss advised -Ambulatory oxygen assessment 2. CHIRSTINE on CPAP -She will need a new sleep study and DME company. See HPI -Referral to sleep medicine 3. Cigarette smoker -Current 1 pack a day smoker down from 2 packs a day with sequelae of COPD -Smoking cessation strongly encouraged -Spoke today about referral to lung cancer screening clinic. She is currently not interested in pursuing evaluation 4. Morbid obesity -Class III obesity, BMI 56 -Weight loss advised as this will improve her respiratory status and is more likely the etiology for her severe dyspnea on exertion rather than her obstructive lung disease Laquita Pulido MD Respiratory [facility] documented in this encounter [facility] 04-27-2023 History of Present illness Narrative . documented in this encounter [facility] 04-27-2023 History of Present illness Narrative PULM FUNCTION SMARTBLOCK: Provider: Laquita Pulido MD Spirometry w/BD: 1 DLCO: 1 documented in this encounter [facility] documented [facility] [place] [facility] Diagnosis Chronic obstructive pulmonary disease, unspecified COPD type (HCC)- Primary documented in this encounter [facility] note* Diagnosis Moderate COPD (chronic obstructive pulmonary disease) (HCC)- Primary Chronic airway obstruction, not elsewhere classified CHRISTINE on CPAP Obstructive sleep apnea (adult) (pediatric) Cigarette smoker Tobacco use disorder Morbid obesity (HCC) Morbid obesity [facility] Diagnosis CHRISTINE (obstructive sleep apnea)- Primary Obstructive sleep apnea (adult) (pediatric) [facility]ative[facility] Outpatient Procedure (Routine) - Authorized Specialty Diagnoses / Procedures Referred By Contac t Referred To Contact [facility] Diagnoses Chronic obstructive pulmonary disease, unspecified COPD type (HCC) Procedures LUNG DIFFUSION CAPACITY (DLCO) DIFFUSING CAPACITY Laquita Pulido MD [address] [place] [address] [place] [address] Referral ID Status Reason Start Date Expiration Date Visits Requested Visits Authorized [id number] Authorized Auto-Generat ed Referral 04/10/2023 05/09/2024 1 1 * Outpatient Procedure (Routine) - Authorized Specialty Diagnoses / Procedures Referred By Contac t Referred To Contact [facility] [place] Diagnoses Chronic obstructive pulmonary disease, unspecified COPD type (HCC) Procedures SPIROMETRY WITH DILATOR IF OBSTRUCTED BRNCDILAT RSPSE SPMTRY PRE&POST-BRNCDILAT ADMN Laquita Pulido MD [address] [place] [address] [address] Referral ID Status Reason Start Date Expiration Date Visits Requested Visits Authorized [id number] Authorized Auto-Generat ed Referral 04/10/2023 05/09/2024 [address] [facility] ([facility]ative[facility] Outpatient Procedure (Routine) - Pending Review Specialty Diagnoses / Procedures Referred By Contac t Referred To Contact [facility] Diagnoses Moderate COPD (chronic obstructive pulmonary disease) (HCC) Procedures OXIMETRY WITH AMBULATION NONINVASIVE EAR/PULSE OXIMETRY MULTIPLE DETER Laquita Pulido MD [address] [place] [address] Res[facility] [address] [place] [address] Referral ID Status Reason Start Date Expiration Date Visits Requested Visits Authorized [id number] Pending Review Auto-Generat ed Referral 3 05/26/2024 1 1 * Medication Prior Authorization - Closed Specialty Diagnoses / Procedures Referred By Kate t Referred To Contact Laquita Pulido MD [address] [place] [address] Referral ID Status Reason Start Date Expiration Date Visits Re quested Visits Authorized [id number] Closed [address] [facility] Summary Purpose Family History No Family History Records FoundNo Family History Records Found Advance Directives No Advanced Directives Records FoundNo Advanced Directives Records Found Reason for Referral Specialty Diagnoses / Procedures Referred By Kate quiros Referred To Contact Diagnoses CHRISTINE (obstructive sleep apnea) Procedures CONSULT TO SLEEP MEDICINE - ADULT OFFICE/OUTPATIENT [facility] 60-74 MINUTES Laquita Pulido MD [address] [place] [address] Referral ID Status Reason Start Date Expiration Date Visits Requested Visits Authorized [id number] Authorized PCP Requested Referral 3 04/27/2024 1 1 Additional Source Comments INFORMATION SOURCE (unrecogn ized section and content) DATE CREATED AUTHOR AUTHOR'S ORGANIZ ATION 07/09/[address] [facility] Source Comments (unrecognize d section and content) In the event this informatio n is protected by the Federal Confidentiality of Alcohol and Drug Abuse Patient Records regulations: The Federal rules restrict any use of the information to criminally investigate or prosecute any alcohol or drug abuse patient.[facility] the event this information is protected by the Federal Confidentiality of Alcohol and Drug Abuse Patient Records regulations: The Federal rules restrict any use of the information to criminally investigate or prosecute any alcohol or drug abuse patient.[facility] the event this information is protected by the Federal Confidentiality of Alcohol and Drug Abuse Patient Records regulations: The Federal rules restrict any use of the information to criminally investigate or prosecute any alcohol or drug abuse patient.[facility] Center[facility] the event this information is protected by the Federal Confidentiality of Alcohol and Drug Abuse Patient Records regulations: The Federal rules restrict any use of the information to criminally investigate or prosecute any alcohol or drug abuse patient.[facility] Center[facility] the event this information is protected by the Federal Confidentiality of Alcohol and Drug Abuse Patient Records regulations: The Federal rules restrict any use of the information to criminally investigate or prosecute any alcohol or drug abuse patient.[facility] Center[facility] the event this information is protected by the Federal Confidentiality of Alcohol and Drug Abuse Patient Records regulations: The Federal rules restrict any use of the information to criminally investigate or prosecute any alcohol or drug abuse patient.[facility] CenterIn the event this information is protected by the Federal Confidentiality of Alcohol and Drug Abuse Patient Records regulations: The Federal rules restrict any use of the information to criminally investigate or prosecute any alcohol or drug abuse patient.[facility] CenterIn the event this information is protected by the Federal Confidentiality of Alcohol and Drug Abuse Patient Records regulations: The Federal rules restrict any use of the information to criminally investigate or prosecute any alcohol or drug abuse patient.[facility] Reason for Visit (unrecogniz ed section and content) Specialty Diagnoses / Procedures Referred By Contac t Referred To Contact [facility] Diagnoses Chronic obstructive pulmonary disease, unspecified COPD type (HCC) Procedures LUNG DIFFUSION CAPACITY (DLCO) DIFFUSING CAPACITY Laquita Pulido MD [address] [place] [address] [address] Referral ID Status Reason Start Date Expiration Date V isits Requested Visits Authorized [id number] Closed Auto-Generate d Referral 04/10/2023 05/09/2024 1 1 Specialty Diagnoses / Procedures Referred By Contac t Referred To Contact [facility] [place] Diagnoses Chronic obstructive pulmonary disease, unspecified COPD type (HCC) Procedures SPIROMETRY WITH DILATOR IF OBSTRUCTED BRNCDILAT RSPSE SPMTRY PRE&POST-BRNCDILAT ADMN Laquita Pulido MD [address] [place] [address] Res[facility] [address] [place] [id number] Referral ID Status Reason Start Date Expiration Date V isits Requested Visits Authorized [id number] Closed Auto-Generate d Referral 04/10/2023 05/09/2024 1 1 Reason Comments New Patient COPD Reason Comments Patient Update Reason Comments Referral Request Reason Comments Future Appointment Appointment Canceled . Care Teams (unrecognized sec tion and content) Stallion Manager Relationship Specialty Start Date End Date Anish Roca CNP [address] [phone] PCP - General Family Medicine 04/24/23 Anish Roca CNP [address] [phone] Family Medicine 04/13/23 Stallion Manager Relationship Specialty Start Date End Date Anish Roca CNP [address] [place] [address] PCP - General Family Medicine 04/24/23 Anish Roca CNP [address] [place] [address] Family Medicine 04/13/23 Stallion Manager Relationship Specialty Start Date End Date Anish Roca CNP [address] [place] [address] PCP - General Family Medicine 04/24/23 Anish Roca CNP [address] [facility] [address] Referring Family Medicine 04/13/23 Stallion Manager Relationship Specialty Start Date End Date Anish Roca CNP [address] [place] [address] PCP - General Family Medicine 04/24/23 Anish Roca CNP [address] [place] [address] Referring Family Medicine 04/13/23 Stallion Manager Relationship Specialty Start Date End Date Anish Roca CNP [address] [place] [address] PCP - General Family Medicine 04/24/23 Anish Roca CNP [address] [place] [address] Referring Family Medicine 04/13/23 FOR RECORDS PERTAINING TO PATIENTS WHO ARE OR HAVE BEEN ENROLLED IN A CHEMICAL DEPENDENCY/SUBSTANCEABUSE PROGRAM, SOME INFORMATION MAY BE OMITTED. This clinical summary was aggregated from multiple sources. Caution should be exercised in using it in the provision of clinical care. This summary normalizes information from multiple sources, and as a consequence, information in this document may materially change the coding, format and clinical context of patient data. In addition, data may be omitted in some cases. CLINICAL DECISIONS SHOULD BE BASED ON THE PRIMARY CLINICAL RECORDS. [facility]. provides no warranty or guarantee of the accuracy or completeness of information in this document.
== END | disposition home or self-care (01) ==
LOC: SL 20:31
DX: G47.33 Obstructive sleep apnea (adult) (pediatric) (principal)
CPT/HCPCS: 95811

== ENCOUNTER → 2023-12-09 | Outpatient (CLI) | payer MEDICAID, SELFPAY ==
[2023-12-09 13:27] LABS: Vitamin B12 228 pg/mL (211-911)
[2023-12-09 13:38] LABS: ALB/GLOB Ratio 0.7 RATIO (0.9-2.4); AST(SGOT) 25 U/L (15-37); Alanine Aminotransfer ALT/SGPT 29 U/L (13-56); Albumin, Serum 3.3 g/dL (3.2-5.0); Alkaline Phosphatase 111 U/L (45-117); Anion Gap 9 (5-15); BUN 14 mg/dL (7-18); BUN/Creat Ratio 16.7 RATIO (10-20); Calcium,Total 9.6 mg/dL (8.5-10.1); Chloride 99 mmol/L (98-107); Cholesterol 157 mg/dL (200); Creatinine, Serum 0.84 mg/dL (0.55-1.02); EST Glomerular Filtration Rate 75 mL/min (>60); Est Glom Filt Rate - Afr Amer 91 mL/min (>60); Globulin 4.8 g/dL (2.2-4.2); Glucose 121 mg/dL (74-106); High Density Lipoprotein 38 mg/dL; Protein, Total 8.1 g/dL (6.4-8.2); Sodium Level 137 mmol/L (136-145); Thyroid Stim Hormone (TSH) 0.02 uIU/mL (0.358-3.74); Triglycerides 221 mg/dL; Very Low Density Lipoprotein 44 mg/dL (5-40)
[2023-12-09 14:10] LABS: Hemoglobin A1c 6.1 % (3.8-5.6)
== END | disposition home or self-care (01) ==
LOC: LABSPEC 12:08
PROVIDERS: Visit Provider Nurse Practitioner Family
DX: E11.9 Type 2 diabetes mellitus without complications (principal); E53.8 Deficiency of other specified B group vitamins
CPT/HCPCS: 80053; 80061; 82043; 82607; 83036; 84443

== ENCOUNTER → 2023-12-09 | Outpatient (CLI) | payer MEDICAID, SELFPAY | END | disposition home or self-care (01) | LOC: LABSPEC 11:36 | PROVIDERS: Visit Provider Nurse Practitioner Family | DX: Z00.00 Encounter for general adult medical examination without abnormal findings (principal) ==

== ENCOUNTER → 2024-05-19 | Outpatient (CLI) | payer MEDICAID, SELFPAY ==
[2024-05-19 13:07] LABS: Microalbumin,Random Urine 24.5 mg/L (NO RANGE EST.)
[2024-05-19 13:31] LABS: ALB/GLOB Ratio 0.7 RATIO (0.9-2.4); AST(SGOT) 24 U/L (15-37); Alanine Aminotransfer ALT/SGPT 20 U/L (13-56); Albumin, Serum 3.3 g/dL (3.2-5.0); Alkaline Phosphatase 103 U/L (45-117); Anion Gap 8 (5-15); BUN 23 mg/dL (7-18); BUN/Creat Ratio 18.5 RATIO (10-20); Calcium,Total 9.3 mg/dL (8.5-10.1); Chloride 102 mmol/L (98-107); Creatinine, Serum 1.24 mg/dL (0.55-1.02); EST Glomerular Filtration Rate 48 mL/min (>60); Est Glom Filt Rate - Afr Amer 58 mL/min (>60); Globulin 4.5 g/dL (2.2-4.2); Glucose 89 mg/dL (74-106); Potassium 5.1 mmol/L (3.5-5.1); Protein, Total 7.8 g/dL (6.4-8.2); Sodium Level 135 mmol/L (136-145); T4 Free Direct 2.03 ng/dL (0.76-1.46); T4 Total, Thyroxin 18.1 ug/dL (4.8-13.9); Thyroid Stim Hormone (TSH) 0.008 uIU/mL (0.358-3.740)
[2024-05-19 13:38] LABS: T3 Total - Triiodothyronine 1.64 ng/mL (0.6-1.81)
== END | disposition home or self-care (01) ==
LOC: VSLAB 10:25
PROVIDERS: PCP Nurse Practitioner Family; Visit Provider Nurse Practitioner Family
DX: E87.6 Hypokalemia (principal); E11.9 Type 2 diabetes mellitus without complications; E03.9 Hypothyroidism, unspecified
CPT/HCPCS: 36415; 80053; 82043; 84436; 84439; 84443; 84480

== ENCOUNTER → 2024-12-07 | Outpatient (CLI) | payer MEDICAID, SELFPAY ==
[2024-12-07 11:26] LABS: Mucous, Urine 0 SEEN /hpf (<or=2+)
[2024-12-07 12:40] LABS: Absolute Lymphocyte Count 2.61 X10^3/uL (0.83-4.51); Absolute Neutrophil Count 4.7 X10^3/uL (2.0-7.7); Basophil# 0.07 X10^3/uL; Basophil% 0.8 % (0-1); Eosinophil# 0.27 X10^3/uL; Eosinophils% 3.3 % (0-5); Hematocrit 43.3 % (37-47); Hemoglobin 14.2 g/dL (12.0-15.0); Lymphocyte # 2.61 X10^3/ul (0.83-4.51); Lymphocyte % 31.5 % (19-41); Mean Corp Hgb Conc 32.8 g/dL (32-36); Mean Corpuscular Hgb 29.3 pg (27.0-32.0); Mean Corpuscular Volume 89.3 fL (81-99); Mean Platelet Vol. 9.4 fl (6.2-12.0); Monocyte# 0.66 X10^3/uL; NRBC Flagged by Analyzer 0 % (0-5); Neutrophil # 4.65 X10^3/uL (2.7-7.7); Neutrophil % 56.2 % (47-70); Platelet Count 398 K/mm3 (150-450); RBC Distribution Width CV 14.2 % (11.6-14.6); RBC Distribution Width SD 46.4 fl (35.1-43.9); Red Blood Count 4.85 M/mm3 (4.2-5.4); White Blood Count 8.3 K/mm3 (4.4-11.0)
[2024-12-07 13:10] LABS: AST(SGOT) 18 U/L (<=31); Alanine Aminotransfer ALT/SGPT 11 U/L (<=34); Albumin, Serum 4.1 g/dL (3.5-5.0); Alkaline Phosphatase 125 U/L (35-104); Anion Gap 14 (5-15); BUN 17 mg/dL (4-19); BUN/Creat Ratio 13.7 RATIO (10-20); Calcium,Total 9.7 mg/dL (7.6-11.0); Carbon Dioxide 26.3 mmol/L (21.0-32.0); Chloride 96 mmol/L (98-108); Cholesterol 173 mg/dL (<=200); Creatinine, Serum 1.26 mg/dL (0.70-1.20); EST Glomerular Filtration Rate 50 (>60); Glucose 95 mg/dL (70-99); High Density Lipoprotein 42 mg/dL; Low Density Lipoprotein Calc. 88 mg/dL; Potassium 4.9 mmol/L (3.3-5.1); Protein, Total 8.1 g/dL (5.9-8.4); Sodium Level 136 mmol/L (133-145); Thyroid Stim Hormone (TSH) 0.041 uIU/mL (0.300-4.200); Total Bilirubin 0.42 mg/dL (0.00-1.30); Triglycerides 211 mg/dL; Very Low Density Lipoprotein 42 mg/dL (5-40); cholesterol:hdl ratio screen 4.08
[2024-12-07 13:37] LABS: Color, Urine Yellow (Yellow); Glucose, Dipstick Normal (Normal); Ketone-Dipstick Negative (Negative); Leukocyte Esterase-Dipstick 100 /ul (Negative); Nitrite-Dipstick Positive (Negative); Occult Blood-Urine 10 /ul (Negative); Protein-Dipstick 15 mg/dl (Negative); Specific Gravity, Urine 1.015 (1.002-1.030); Urine Bilirubin Dipstick Negative (Negative); Urine Clarity Cloudy (Clear); Urine Urobilinogen Normal (Normal)
[2024-12-07 13:40] LABS: Bacteria 3+ /hpf (None Seen); Red Blood Cells-Urine 0-5 SEEN /hpf (0-5); Squamous Epithelial Cells - UA 0-5 SEEN /hpf (5-10); White Blood Cells 5-10 SEEN /hpf (0-5)
[2024-12-07 14:23] LABS: Microalbumin,Random Urine < 12.0 mg/L (NO RANGE EST.); Microalbumin:Creatinine Ratio UNABLE TO CALCULATE mg/g CRE
== END | disposition home or self-care (01) ==
LOC: LABSPEC 11:23 → VSLAB 11:36
PROVIDERS: PCP Nurse Practitioner Family
DX: E11.9 Type 2 diabetes mellitus without complications (principal); R30.0 Dysuria
CPT/HCPCS: 36415; 80053; 80061; 81001; 82043; 82570; 84439; 84443; 85025; 87086; 87088; 87186

== ENCOUNTER → 2025-01-25 | Outpatient (CLI) | payer MEDICAID, SELFPAY ==
[2025-01-25 17:15] LABS: Hematocrit 44.7 % (37-47); Hemoglobin 14.9 g/dL (12.0-15.0); Immature Granulocytes Count 0.040 X10^3/uL (0.0-0.0); Mean Corp Hgb Conc 33.3 g/dL (32-36); Mean Corpuscular Volume 88.9 fL (81-99); Mean Platelet Vol. 9.5 fl (6.2-12.0); NRBC Flagged by Analyzer 0 % (0-5); Platelet Count 406 K/mm3 (150-450); RBC Distribution Width CV 14.6 % (11.6-14.6); RBC Distribution Width SD 47.0 fl (35.1-43.9); Red Blood Count 5.03 M/mm3 (4.2-5.4); White Blood Count 11.4 K/mm3 (4.4-11.0)
[2025-01-25 18:15] LABS: AST(SGOT) 19 U/L (<=31); Alanine Aminotransfer ALT/SGPT 15 U/L (<=34); Albumin, Serum 4.2 g/dL (3.5-5.0); Alkaline Phosphatase 123 U/L (35-104); Anion Gap 16 (5-15); BUN 21 mg/dL (4-19); BUN/Creat Ratio 15.1 RATIO (10-20); CRP 7.46 mg/L (0.0-3.0); Calcium,Total 10.1 mg/dL (7.6-11.0); Carbon Dioxide 24.3 mmol/L (21.0-32.0); Chloride 100 mmol/L (98-108); Globulin 3.8 g/dL (2.2-4.2); Glucose 100 mg/dL (70-99); Potassium 4.6 mmol/L (3.3-5.1)
[2025-01-27 12:08] LABS: ANTINUCLEAR ANTIBODIES DIRECT Negative (Negative)
[2025-01-27 21:07] LABS: QNTFERON TB Mitogen Value > 10.00 IU/mL (.); QNTFERON TB Nil Value 0.05 IU/mL (.); QNTFERON TB1+ Ag Value 0.08 IU/mL (.); QNTFERON TB2+ Ag Value 0.06 IU/mL (.); QNTIFERON TB Positive Criteria Negative (Negative)
== END | disposition home or self-care (01) ==
LOC: VSLAB 15:54
PROVIDERS: PCP Nurse Practitioner Family; Visit Provider Family Medicine
DX: R53.83 Other fatigue (principal)
CPT/HCPCS: 36415; 80053; 84439; 85025; 86038; 86140; 86480

== ENCOUNTER → 2025-02-13 | Outpatient (CLI) | payer MEDICAID, SELFPAY ==
[2025-02-13 12:35] LABS: Microalbumin,Random Urine < 12.0 mg/L (<20 mg/L)
== END | disposition home or self-care (01) ==
LOC: LABSPEC 10:09
PROVIDERS: PCP Nurse Practitioner Family; Visit Provider Family Medicine
DX: E03.9 Hypothyroidism, unspecified (principal); E11.9 Type 2 diabetes mellitus without complications; R32 Unspecified urinary incontinence; R35.0 Frequency of micturition
CPT/HCPCS: 82043; 87077; 87086; 87088; 87186